=== PATIENT | female | born 1945 | race Caucasian/White ===

== ENCOUNTER → 2017-11-28 08:05 | Outpatient (CLI) | payer MEDICARE, OTHER, SELFPAY ==
--- NOTE | 2017-11-28 | DI.MG.S_ITS ---
BILATERAL DIGITAL SCREENING MAMMOGRAM 3D/2D WITH CAD POST LUMPECTOMY: 11/28/2017 CLINICAL: Routine screening. Personal history of breast cancer. Comparison is made to exams dated: [facility], 12/19/2015 mammogram [facility], and 12/12/2015 [facility]. The tissue of both breasts is predominantly fatty. Current study was also evaluated with a Computer Aided Detection (CAD) system. There are post operative findings in the right breast. No significant masses, calcifications, or other findings are seen in either breast. There has been no significant interval change. IMPRESSION: NEGATIVE There is no mammographic evidence of malignancy. A 1 year screening mammogram is recommended. This exam was interpreted at Station ID: [id number]. NOTE: For mammograms, a report in lay terms will be sent to the patient. Approximately 15% of breast malignancies will not be visualized mammographically. In the management of a palpable breast mass, a negative mammogram must not discourage biopsy of a clinically suspicious lesion. Electronically Signed By: Gian worley/corey:11/28/2017 16:55:30 copy to: Marshall Davila letter sent: Normal Exam ACR BI-RADS Category 1: Negative 3341F
== END ==
PROVIDERS: Family Provider Family Medicine; PCP Family Medicine; Visit Provider Family Medicine
DX: Z12.31 Encounter for screening mammogram for malignant neoplasm of breast (principal); Z85.3 Personal history of malignant neoplasm of breast
CPT/HCPCS: 77063; 77067

== ENCOUNTER → 2017-12-06 08:04 | Outpatient (CLI) | payer MEDICARE, OTHER, SELFPAY ==
[2017-12-06 09:09] LABS: Alanine Aminotransferase 26 IU/L (9-52); Albumin 3.5 g/dL (3.5-5.0); Albumin Globulin Ratio 1.2 (1.0-2.8); Alkaline Phosphatase 55 U/L (38-126); Aspartate Aminotransferase 16 IU/L (14-36); BUN Creatinine Ratio 23.3 (6-22); Bilirubin Total 0.7 mg/dL (0.2-1.3); Blood Urea Nitrogen 14 mg/dL (7-17); Calcium 8.5 mg/dL (8.4-10.2); Carbon Dioxide 23 mmol/L (22-32); Chloride 106 mmol/L (98-107); Cholesterol 175 mg/dL (140-199); Estimated Glomerular Filt Rate > 60.0 mL/min (>60); Glucose 118 mg/dL (80-110); HDL Cholesterol 54 mg/dL (40-60); HEMOLYSIS < 15 (0-50); LDL Cholesterol Calculated 93 mg/dL (<100); Sodium 140 mmol/L (137-145); Total Protein 6.5 g/dL (6.3-8.2); Triglycerides 138 mg/dL (35-150)
== END ==
PROVIDERS: PCP Family Medicine; Visit Provider Internal Medicine Cardiovascular Disease
DX: I25.10 Atherosclerotic heart disease of native coronary artery without angina pectoris (principal)
CPT/HCPCS: 36415; 80053; 80061

== ENCOUNTER → 2017-12-15 10:27 | Outpatient (CLI) | payer MEDICARE, OTHER, SELFPAY ==
[2017-12-15 10:50] LABS: Add Manual Diff / Slide Review NO; Basophils Percent Auto 0.7 % (0-2); Eosinophils Percent Auto 3.3 % (2-4); Hematocrit 44.2 % (36-46); Hemoglobin 15.2 g/dL (12.0-16.0); Mean Corpuscular HGB Conc 34.5 % (30-36); Mean Corpuscular Hemoglobin 33.3 PG (26-34); Mean Corpuscular Volume 96.6 fL (80-100); Monocytes Percent Auto 10.8 % (3-14); Neutrophils Absolute Auto 3700 /uL (3000-5900); Neutrophils Percent Auto 59.2 % (50-75); Platelet Count 153 X10^3/uL (150-400); Red Blood Cell Count 4.57 X10^6/uL (4.0-5.2); Red Cell Distribution Width 12.1 % (11.6-14.8); White Blood Cell Count 6.3 X10^3/uL (4.5-11.0)
[2017-12-15 11:01] LABS: Alanine Aminotransferase 30 IU/L (9-52); Albumin 3.8 g/dL (3.5-5.0); Albumin Globulin Ratio 1.2 (1.0-2.8); Alkaline Phosphatase 61 U/L (38-126); Aspartate Aminotransferase 21 IU/L (14-36); Bilirubin Total 0.6 mg/dL (0.2-1.3); Blood Urea Nitrogen 15 mg/dL (7-17); Calcium 8.9 mg/dL (8.4-10.2); Carbon Dioxide 26 mmol/L (22-32); Chloride 106 mmol/L (98-107); Estimated Glomerular Filt Rate > 60.0 mL/min (>60); Globulin 3.2 g/dL (1.7-4.1); Glucose 97 mg/dL (80-110); HEMOLYSIS < 15 (0-50); Potassium 4.6 mmol/L (3.4-5.1); Sodium 144 mmol/L (137-145)
== END ==
PROVIDERS: Family Provider Family Medicine; PCP Family Medicine; Visit Provider Nurse Practitioner Gerontology
DX: Z85.3 Personal history of malignant neoplasm of breast (principal)
CPT/HCPCS: 36415; 80053; 85025

== ENCOUNTER → 2018-06-13 07:50 | Outpatient (CLI) | payer MEDICARE, OTHER, SELFPAY ==
[2018-06-13 09:49] LABS: Cholesterol 164 mg/dL (140-199); HDL Cholesterol 66 mg/dL (40-60); LDL Cholesterol Calculated 73 mg/dL (<100); Triglycerides 126 mg/dL (35-150)
== END ==
PROVIDERS: Family Provider Family Medicine; PCP Family Medicine; Visit Provider Internal Medicine Cardiovascular Disease
DX: E78.01 Familial hypercholesterolemia (principal)
CPT/HCPCS: 36415; 80061

== ENCOUNTER → 2018-11-29 09:56 | Outpatient (CLI) | payer MEDICARE, OTHER, SELFPAY ==
--- NOTE | 2018-11-29 | DI.MG.S_ITS ---
BILATERAL DIGITAL SCREENING MAMMOGRAM 3D/2D WITH CAD POST LUMPECTOMY: 11/29/2018 CLINICAL: Routine screening. Personal history of right breast cancer. Comparison is made to exams dated: 11/28/2017 mammogram, 06/16/2016 mammogram, and 06/10/2015 [facility] - [facility]. There are scattered fibroglandular elements in both breasts. Current study was also evaluated with a Computer Aided Detection (CAD) system. There are a benign area of fat necrosis and post operative findings in the right breast. No significant masses, calcifications, or other findings are seen in either breast. There has been no significant interval change. IMPRESSION: There is no mammographic evidence of malignancy. A 1 year screening mammogram is recommended. This exam was interpreted at Station ID: [id number]. NOTE: For mammograms, a report in lay terms will be sent to the patient. Approximately 15% of breast malignancies will not be visualized mammographically. In the management of a palpable breast mass, a negative mammogram must not discourage biopsy of a clinically suspicious lesion. Electronically Signed By: Sandip way/corey:11/29/2018 11:37:15 copy to: Marshall Davila letter sent: Normal Exam ACR BI-RADS Category 2: Benign Finding(s) 3342F
== END ==
DX: Z12.31 Encounter for screening mammogram for malignant neoplasm of breast (principal); Z85.3 Personal history of malignant neoplasm of breast
CPT/HCPCS: 77063; 77067

== ENCOUNTER 2019-01-02 13:29 | Day surgery (SDC) | payer MEDICARE, OTHER, SELFPAY ==
--- NOTE | 2019-01-02 | PATH_ITS ---
[facility] Accession Number: [id number] . 01 Material submitted: . PART A: colon - POLYP AT CECUM PART B: colon - POLYP LEFT COLON . 02 Diagnosis: A. Cecum, Polyp: Tubular adenoma. . B. Left Colon, Polyp: Hyperplastic polyp. I/01/03/2019 . 02 Electronically signed: . Figueroa Ca MD, PhD, Pathologist NPI- [id number] . 01 Gross description: . Part A: POLYP AT CECUM: Received in formalin is 1 fragment(s) of carter, soft tissue measuring 1.0 x 0.7 x 0.2 cm which is entirely submitted and submitted entirely in 1 cassette(s) Part B: POLYP LEFT COLON: Received in formalin is 1 fragment(s) of carter, soft tissue measuring 0.1 x 0.1 x 0.1 cm which is entirely submitted and submitted entirely in 1 cassette(s) /[facility] /[facility] . 02 Pathologist provided ICD-10: D12.0, K63.5 . 02 CPT . 389119, 049384 Performed at: 01 [facility] [address], [place], [place] [id number] MD Sandip Mark MD Phone: [phone] Performed at: 02 [facility] [address] [place], [place] [id number] MD Lissa Jacobsen MD Phone: [phone]
[2019-01-02 13:55] VITALS: BMI 39.7
[2019-01-02 14:03] VITALS: BP 115/81; PULSE 100; RESP 20; TEMP 36.7; O2SAT 98
[2019-01-02] MEDS: SODIUM CHLORIDE 0.9% 1,000 ML 84 ML IV (14:05)
--- NOTE | 2019-01-02 14:09 | PM.HP.1 ---
History of Present Illness Date Patient Seen: 01/02/19 Time Patient Seen: 14:15 Chief complaint: [id number] SCREENING COLONOSCOPY Narrative: 73-year-old woman presents 6 years after last screening colonoscopy where a total of 6 polyps were removed. She was told re-presented 5 years afterwards. She reports no known family history of colon cancer however her sister was recently diagnosed with a colon mass that was biopsied and suspicious for cancer with pathology pending. She current we is having no GI symptoms and feels well. She tolerated her prep. Patient History Medical History (Updated 01/02/19 @ 14:16 by Dave Walton MD) Insomnia, persistent (Chronic) Obstructive sleep apnea (Chronic) Hypertension (Acute) Surgical History (Updated 01/02/19 @ 14:16 by Dave Walton MD) History of appendectomy (Acute) Social History marital status: details: in March 2018 household members: none lives independently: Yes caregiver/support person: No seatbelt use: always do you feel safe at home: Yes Smoking Status: Former smoker substance use type: does not use additional social history: Describes very supportive community; daughters, friends, fellow jainism members Family & Social History Social History: household members none lives independently Yes caregiver/support person No Tobacco & Substance use: Smoking Status Former smoker Meds Home Medications Medication Instructions Recorded Confirmed Type atenolol 25 mg PO QDAY #0 01/19/13 01/02/19 History melatonin 5 mg PO BEDTIME #0 01/19/13 01/02/19 History omega 0-npk-pcb-fish oil [Fish Oil] 800 mg PO BID #0 01/19/13 01/02/19 History Respironics Remstar CPAP #1 ea 12/07/18 12/07/18 History pravastatin 40 mg PO DAILY 12/19/18 01/02/19 History cholecalciferol (vitamin D3) 2,000 unit PO BID 01/02/19 01/02/19 History [Vitamin D3] Allergies Allergy/AdvReac Type Severity Reaction Status Date / Time adhesive tape [ADHESIVE TAPE] AdvReac Mild BLISTERS, Verified 01/02/19 13:50 BANDAIDS AND PAPER TAPE [place] Review of Systems Constitutional Constitutional: Denies fever(s) Eyes Eyes: Denies bulging eyes ENT Ears, Nose, Mouth, and Throat: No lip swelling Cardiovascular Cardiovascular: Denies generalize swelling Respiratory Respiratory: Denies stridor Gastrointestinal Gastrointestinal: Denies coffee ground emesis Musculoskeletal Musculoskeletal: Denies loss of height Integumentary/Breasts Skin/Breast: Denies wounds Neurologic Neurologic: Denies abnormal speech and Denies confusion Psychiatric Psychiatric: Denies confusion Endocrine Endocrine: Denies deepening of the voice Hematologic/Lymphatic Hematologic/Lymphatic: Denies lymphadenopathy Allergic/Immunologic Allergic/Immunologic: Denies lip swelling Exam Vital Signs (past 8 hours): - 01/02/19 14:03 Temperature 98.0 F Pulse Rate 100 H Respiratory Rate 20 Blood Pressure 115/81 Pulse Oximetry 98 Oxygen Delivery Method Room Air Const General: cooperative and healthy appearing Orientation: alert HENMS Head: normal to inspection Nose: nares normal Mouth: oral mucosae normal and lip normal Eyes Eyelids: eyelids normal Conjunctivae: conjunctivae normal Sclera: sclerae normal Neck Neck: supple and other (No thyromegally) Chest Chest: other (LCTAB , regular respiratory effort) Cardio Rhythm: regular rhythm Heart Sounds: S1 normal, S2 normal, no gallops, no murmurs and no rubs GI Other: Abdomen soft nontender nondistended Skin General: no rashes or lesions noted Neuro General: alert and awake Psych Appearance: grossly normal Affect: normal affect Assessment & Plan Assessment & Plan narrative: 73-year-old woman here for 2nd ever screening colonoscopy 6 years after last with history of cysts polypectomy x6 at that time. Likely with sibling with colon cancer but not definitive yet. Plan for screening colonoscopy today Risks of procedure including bleeding, , hypoxia, perforation, missed lesion all discussed All questions answered Patient ready to proceed
--- NOTE | 2019-01-02 14:18 | P.HP_ITS ---
History of Present Illness Date Patient Seen: 01/02/19 Time Patient Seen: 14:15 Chief complaint: [id number] SCREENING COLONOSCOPY Narrative: 73-year-old woman presents 6 years after last screening colonoscopy where a total of 6 polyps were removed. She was told re-presented 5 years afterwards. She reports no known family history of colon cancer however her sister was recently diagnosed with a colon mass that was biopsied and suspicious for cancer with pathology pending. She current we is having no GI symptoms and feels well. She tolerated her prep. Patient History Medical History (Updated 01/02/19 @ 14:16 by Dave Walton MD) Insomnia, persistent (Chronic) Obstructive sleep apnea (Chronic) Hypertension (Acute) Surgical History (Updated 01/02/19 @ 14:16 by Dave Walton MD) History of appendectomy (Acute) Social History marital status: details: in March 2018 household members: none lives independently: Yes caregiver/support person: No seatbelt use: always do you feel safe at home: Yes Smoking Status: Former smoker substance use type: does not use additional social history: Describes very supportive community; daughters, friends, fellow sikh members Family & Social History Social History: household members none lives independently Yes caregiver/support person No Tobacco & Substance use: Smoking Status Former smoker Meds Home Medications Medication Instructions Recorded Confirmed Type atenolol 25 mg PO QDAY #0 01/19/13 01/02/19 History melatonin 5 mg PO BEDTIME #0 01/19/13 01/02/19 History omega 7-wpk-cwj-fish oil [Fish Oil] 800 mg PO BID #0 01/19/13 01/02/19 History Respironics Remstar CPAP #1 ea 12/07/18 12/07/18 History pravastatin 40 mg PO DAILY 12/19/18 01/02/19 History cholecalciferol (vitamin D3) 2,000 unit PO BID 01/02/19 01/02/19 History [Vitamin D3] Allergies Allergy/AdvReac Type Severity Reaction Status Date / Time adhesive tape [ADHESIVE TAPE] AdvReac Mild BLISTERS, Verified 01/02/19 13:50 BANDAIDS AND PAPER TAPE OK Review of Systems Constitutional Constitutional: Denies fever(s) Eyes Eyes: Denies bulging eyes ENT Ears, Nose, Mouth, and Throat: No lip swelling Cardiovascular Cardiovascular: Denies generalize swelling Respiratory Respiratory: Denies stridor Gastrointestinal Gastrointestinal: Denies coffee ground emesis Musculoskeletal Musculoskeletal: Denies loss of height Integumentary/Breasts Skin/Breast: Denies wounds Neurologic Neurologic: Denies abnormal speech and Denies confusion Psychiatric Psychiatric: Denies confusion Endocrine Endocrine: Denies deepening of the voice Hematologic/Lymphatic Hematologic/Lymphatic: Denies lymphadenopathy Allergic/Immunologic Allergic/Immunologic: Denies lip swelling Exam Vital Signs (past 8 hours): - 01/02/19 14:03 Temperature 98.0 F Pulse Rate 100 H Respiratory Rate 20 Blood Pressure 115/81 Pulse Oximetry 98 Oxygen Delivery Method Room Air Const General: cooperative and healthy appearing Orientation: alert HENID Head: normal to inspection Nose: nares normal Mouth: oral mucosae normal and lip normal Eyes Eyelids: eyelids normal Conjunctivae: conjunctivae normal Sclera: sclerae normal Neck Neck: supple and other (No thyromegally) Chest Chest: other (LCTAB , regular respiratory effort) Cardio Rhythm: regular rhythm Heart Sounds: S1 normal, S2 normal, no gallops, no murmurs and no rubs GI Other: Abdomen soft nontender nondistended Skin General: no rashes or lesions noted Neuro General: alert and awake Psych Appearance: grossly normal Affect: normal affect Assessment & Plan Assessment & Plan narrative: 73-year-old woman here for 2nd ever screening colonoscopy 6 years after last with history of cysts polypectomy x6 at that time. Likely with sibling with colon cancer but not definitive yet. Plan for screening colonoscopy today Risks of procedure including bleeding, , hypoxia, perforation, missed lesion all discussed All questions answered Patient ready to proceed
[2019-01-02] MEDS: MIDAZOLAM 5 MG/5 ML VIAL IV (14:35)
[2019-01-02] MEDS: fentaNYL 250 MCG/5 ML INJ IV (14:36)
--- NOTE | 2019-01-02 14:45 | SUR.OPER ---
NO CAUTERY USED
[2019-01-02] MEDS: GLUCAGON,HUMAN RECOMBINANT 1 MG/ML VIAL IV (14:48)
--- NOTE | 2019-01-02 15:08 | PM.OP.ENDO ---
Operative Date/Time/Diagnoses Date of procedure: 01/02/19 Time of procedure: 15:08 Pre-op diagnosis: Colorectal cancer screening Post-op diagnosis: same Procedure & Clinicians Study performed: Screening colonoscopy-complete Cecal polypectomy -cold snare Left colon polypectomy -cold biopsy forceps Same procedure as scheduled: Yes Indications: 73-year-old woman with history of colon polyps presents 6 years after most recent colonoscopy were 6 polyps were removed Surgeon: Dave Walton Procedure Notes SCOAP/Timeout: completed Procedure in detail: 73-year-old woman taken to the endoscopy suite, time-out was completed. She was sedated over the entire course of her procedure with 80 mg of midazolam and 150 micro g of fentanyl. A digital rectal exam was performed without masses or polyps identified. 160 cm colonoscope was then introduced through the anus and advanced to the level of the cecum. There were quite numerous and tight folds within the colon which made advancement somewhat difficult. We were eventually however able to reach the cecum identified with a prominent ileocecal valve, she patient was status post appendectomy but the recess where the appendix had been prior was identified. Within the cecum just proximal to the ileocecal valve a small sessile polyp was identified. This was removed with cold snare and captured using a suction trap. Scope was then slowly advanced inspecting the wall of the colon. A small sessile polyp was identified in the left colon. This was removed via small biopsy forcep. Further withdrawing the scope there is extensive amount of sigmoid diverticulosis. No additional lesions were identified The scope was retroflexed in the distal rectum without concerning lesions. Scope withdrawal time: Twenty-five Sedation minutes: 44 Specimen(s): other (Cecal polyp, left colon polyp) Impression: Sigmoid diverticulosis -extensive Cecal polyp status post removal, left colon polyp status post removal Recommendations: Colonscopy in 5 years Plan for aftercare: PACU then Follow up: as needed Disposition: PACU
[2019-01-02 15:11] VITALS: BP 130/78; PULSE 84; RESP 20; TEMP 36.1; O2SAT 98
[2019-01-02 15:15] VITALS: BP 135/81; PULSE 88; RESP 14; O2SAT 97
[2019-01-02 15:21] VITALS: BP 131/84; PULSE 86; RESP 16; TEMP 36.4; O2SAT 97
[2019-01-02 15:40] VITALS: BP 147/85; PULSE 74; RESP 16; O2SAT 94
== END 2019-01-02 13:50 | disposition home or self-care (01) ==
LOC: ENDO 13:33
PROVIDERS: Visit Provider Surgery
PROC: 0DJD8ZZ Inspection of Lower Intestinal Tract, Via Natural or Artificial Opening Endoscopic (ICD-10-PCS; CPT 45378; principal; 2019-01-02 15:00)
DX: Z86.010 Personal history of colon polyps (principal); K57.30 Diverticulosis of large intestine without perforation or abscess without bleeding; G47.33 Obstructive sleep apnea (adult) (pediatric); I10 Essential (primary) hypertension; D12.0 Benign neoplasm of cecum; K63.5 Polyp of colon
CPT/HCPCS: 45380; 88305; 99152; 99153; J1610; J2250; J3010

== ENCOUNTER → 2019-02-23 09:18 | Outpatient (CLI) | payer MEDICARE, OTHER, SELFPAY ==
[2019-02-23 10:08] LABS: Cholesterol 181 mg/dL (140-199); HDL Cholesterol 68 mg/dL (40-60); LDL Cholesterol Calculated 82 mg/dL (<100); Triglycerides 157 mg/dL (35-150)
== END ==
PROVIDERS: Visit Provider Internal Medicine Cardiovascular Disease
DX: E78.01 Familial hypercholesterolemia (principal)
CPT/HCPCS: 36415; 80061

== ENCOUNTER → 2019-07-25 08:48 | Outpatient (CLI) | payer MEDICARE, OTHER, SELFPAY ==
[2019-07-25 10:42] LABS: Cholesterol 239 mg/dL (140-199); HDL Cholesterol 61 mg/dL (40-60); LDL Cholesterol Calculated 147 mg/dL (<100); Triglycerides 154 mg/dL (35-150)
== END ==
PROVIDERS: PCP Naturopath; Visit Provider Hospitalist
DX: I25.10 Atherosclerotic heart disease of native coronary artery without angina pectoris (principal); E78.01 Familial hypercholesterolemia
CPT/HCPCS: 36415; 80061

== ENCOUNTER → 2020-01-08 10:22 | Outpatient (CLI) | payer MEDICARE, OTHER, SELFPAY ==
--- NOTE | 2020-01-08 | DI.MG.S_ITS ---
BILATERAL DIGITAL SCREENING MAMMOGRAM 3D/2D WITH CAD POST LUMPECTOMY: 01/08/2020 CLINICAL: Routine screening. Breast cancer. Comparison is made to exams dated: 11/29/2018 mammogram, 11/28/2017 mammogram, and 06/16/2016 mammogram - [facility]. There are scattered fibroglandular elements in both breasts. Current study was also evaluated with a Computer Aided Detection (CAD) system. There is a benign area of fat necrosis in the right breast. There also are benign calcifications in both breasts. Additionally, there are benign post operative findings in the right breast. No significant masses, calcifications, or other findings are seen in either breast. There has been no significant interval change. IMPRESSION: There is no mammographic evidence of malignancy. A 1 year screening mammogram is recommended. This exam was interpreted at Station ID: [id number]. NOTE: For mammograms, a report in lay terms will be sent to the patient. Approximately 15% of breast malignancies will not be visualized mammographically. In the management of a palpable breast mass, a negative mammogram must not discourage biopsy of a clinically suspicious lesion. Electronically Signed By: Geoff devries/corey:01/08/2020 11:57:29 copy to: Gwen Walker letter sent: Normal Exam ACR BI-RADS Category 2: Benign Finding(s) 3342F
== END ==
PROVIDERS: PCP Naturopath; Referring Provider Internal Medicine Hematology & Oncology; Visit Provider Internal Medicine Hematology & Oncology
DX: Z12.31 Encounter for screening mammogram for malignant neoplasm of breast (principal); Z85.3 Personal history of malignant neoplasm of breast
CPT/HCPCS: 77063; 77067

== ENCOUNTER → 2020-10-07 11:13 | Outpatient (CLI) | payer MEDICARE, OTHER, SELFPAY ==
--- NOTE | 2020-10-07 | DI.US.S_ITS ---
PROCEDURE: US PERIPH VENOUS LOW EXTREM LT INDICATIONS: LEFT LOWER LEG PAIN TECHNIQUE: Real-time imaging, as well as color and pulse Doppler interrogation, were performed of the lower extremity deep veins from the inguinal ligament to the popliteal fossa. COMPARISON: None. (Prior relevant examinations are not available for review from the archive at the time of this dictation.) FINDINGS: The common femoral, femoral and popliteal veins are normally compressible, and free of intraluminal thrombus. Color and pulse Doppler demonstrate normal phasic intraluminal flow. There is normal augmentation response to distal compression maneuver. IMPRESSION: Negative for deep venous thrombosis. Dictated by: Umang Mitchell M.D. on 10/07/2020 at 11:03 Approved by: Umang Mitchell M.D. on 10/07/2020 at 11:04
== END ==
PROVIDERS: PCP Physician Assistant; Referring Provider Physician Assistant; Visit Provider Physician Assistant
DX: M79.662 Pain in left lower leg (principal); R22.42 Localized swelling, mass and lump, left lower limb
CPT/HCPCS: 93971

== ENCOUNTER → 2021-01-07 09:23 | Outpatient (CLI) | payer MEDICARE, OTHER, SELFPAY ==
[2021-01-07 10:26] LABS: Add Manual Diff / Slide Review NO; Basophils Absolute Auto 0 /uL (0-100); Basophils Percent Auto 0.7 % (0-2); Eosinophils Absolute Auto 100 /uL (0-450); Eosinophils Percent Auto 2.9 % (2-4); Hematocrit 43.9 % (36-46); Hemoglobin 15.2 g/dL (12.0-16.0); Lymphocytes Absolute Auto 1400 /uL (1100-4500); Lymphocytes Percent Auto 28.5 % (25-40); Mean Corpuscular HGB Conc 34.7 % (30-36); Mean Corpuscular Hemoglobin 32.9 PG (26-34); Mean Corpuscular Volume 94.8 fL (80-100); Monocytes Absolute Auto 400 /uL (0-900); Monocytes Percent Auto 8.8 % (3-14); Neutrophils Absolute Auto 2900 /uL (1500-7000); Neutrophils Percent Auto 59.1 % (50-75); Platelet Count 182 X10^3/uL (150-400); Red Blood Cell Count 4.64 X10^6/uL (4.0-5.2); Red Cell Distribution Width 12.6 % (11.6-14.8)
[2021-01-07 10:37] LABS: Alanine Aminotransferase 15 IU/L (<35); Albumin 3.8 g/dL (3.5-5.0); Albumin Globulin Ratio 1.3 (1.0-2.8); Alkaline Phosphatase 60 U/L (38-126); Aspartate Aminotransferase 21 IU/L (14-36); BUN Creatinine Ratio 15.9 (6-22); Bilirubin Total 1.2 mg/dL (0.2-1.3); Blood Urea Nitrogen 11 mg/dL (7-17); Calcium 8.8 mg/dL (8.4-10.2); Carbon Dioxide 27 mmol/L (22-32); Chloride 106 mmol/L (98-107); Cholesterol 240 mg/dL (140-199); Estimated Glomerular Filt Rate > 60.0 mL/min (>60); Globulin 2.9 g/dL (1.7-4.1); Glucose 116 mg/dL (80-110); HDL Cholesterol 54 mg/dL (40-60); HEMOLYSIS 16 (0-50); LDL Cholesterol Calculated 149 mg/dL (<100); Potassium 4.3 mmol/L (3.4-5.1); Sodium 139 mmol/L (137-145); Total Protein 6.7 g/dL (6.3-8.2); Triglycerides 183 mg/dL (35-150)
== END ==
PROVIDERS: PCP Physician Assistant; Referring Provider Physician Assistant; Visit Provider Physician Assistant
DX: E78.5 Hyperlipidemia, unspecified (principal); I10 Essential (primary) hypertension
CPT/HCPCS: 36415; 80053; 80061; 85025

== ENCOUNTER → 2021-01-09 10:10 | Outpatient (CLI) | payer MEDICARE, OTHER, SELFPAY ==
--- NOTE | 2021-01-09 10:11 | DI.MG.S_ITS ---
BILATERAL DIGITAL SCREENING MAMMOGRAM 3D/2D WITH CAD: 01/09/2021 CLINICAL: Routine screening. Personal history of right breast cancer. Comparison is made to exams dated: 01/08/2020 mammogram, 11/29/2018 mammogram, 11/28/2017 mammogram, and 06/16/2016 mammogram - [facility]. There are scattered fibroglandular elements in both breasts. Current study was also evaluated with a Computer Aided Detection (CAD) system. There is a benign area of fat necrosis in the right breast. There also are benign calcifications in the right breast. Additionally, there are benign vascular calcifications in both breasts. Additionally, there also are benign post operative findings in the right breast. No significant masses, calcifications, or other findings are seen in either breast. There has been no significant interval change. IMPRESSION: BENIGN There is no mammographic evidence of malignancy. A 1 year screening mammogram is recommended. This exam was interpreted at Station ID: [id number]. NOTE: For mammograms, a report in lay terms will be sent to the patient. Approximately 15% of breast malignancies will not be visualized mammographically. In the management of a palpable breast mass, a negative mammogram must not discourage biopsy of a clinically suspicious lesion. Electronically Signed By: Mickie olvera/corey:01/09/2021 10:38:22 copy to: Gwen Walker letter sent: Normal Exam ACR BI-RADS Category 2: Benign Finding(s) [id number]
== END ==
PROVIDERS: PCP Physician Assistant; Referring Provider Physician Assistant; Visit Provider Physician Assistant
DX: Z12.31 Encounter for screening mammogram for malignant neoplasm of breast (principal); Z85.3 Personal history of malignant neoplasm of breast
CPT/HCPCS: 77063; 77067

== ENCOUNTER 2021-02-03 09:00 | Outpatient (RCR) | payer MEDICARE, OTHER, SELFPAY ==
--- NOTE | 2020-11-18 18:59 | PT.OIE ---
Current Diagnoses Sciatica, left side (11/18/20) Muscle weakness (generalized) (11/18/20) Other abnormalities of gait and mobility (11/18/20) Past Medical History (Last Updated 06/08/20 @ 18:01 by VENANCIO Waters) Breast cancer, right breast Hypertension Insomnia, persistent Obesity (BMI 30-39.9) Obstructive sleep apnea Personal history of malignant neoplasm of breast Rhinitis Past Surgical History (Last Updated 01/02/19 @ 14:16 by Dave Walton MD) History of appendectomy Visit Care Team Role Provider Type Maryanne Baker PA-C Attending Provider Non-Staff Family Provider Primary Care Provider Referring Provider Specialty: Medical Address: [address] [place] [address], [facility] Email: Physical Therapy Initial Evaluation PT-OP-A Visit Information Start: 11/12/20 16:40 Freq: Status: Active Protocol: Document 11/18/20 09:04 LRN (Rec: 11/18/20 09:55 LRN [id number]) Out-Patient Physical Therapy Visit Information Visit Information Visit Type Initial Evaluation Visit Start Time 09:04 Visit Stop Time 09:49 Total Visit Minutes 45 Visit Number 1 Evaluation Information Evaluation Date 11/18/20 Precautions Precautions Surgical TAPE ALLERGY, Breast [place] [id number]; 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 PT-OP-B Current Condition Start: 11/12/20 16:40 Freq: Status: Active Protocol: Document 11/18/20 09:04 LRN (Rec: 11/18/20 09:55 LRN [id number]) Current Condition History of Current Condition Onset Date 08/2020 Current Complaints Ache pressure pain in L LB > lateral thigh to knee & groin> knee. Heavy leg. History of Current Condition Chiropractor has been working on her back and other areas to maintain her health 3x/week for various different issues and was getting ready to decrease to 1x/week when the Sciatica pain started. Was visiting daughter in [place] when pain exacerbated. She thinks because she was sitting on very soft couches and ambulating stairs. She was given Prednisone that was helpful and allowed her to return in a car back to [place]. Ended dosage of Prednisone 1 week after Easter (October 03). She has been using Tylenol 2000mg/day spread out during the day (AM/ PM), primarily important to help her sleep at night. She denies pain with sitting or sleeping, but notes a constant ache is present in sitting. She has pressure pain with walking and has fear of falling due to weakness of the R leg. Has had sciatic before and is same leg but the pain is different. Can bend over and touch the floor without difficulty. Lives with daughter who works at home. Prior Treatments and Tests Seeing Chiropractor (YOLI Nye) 3x/week now and had received acupuncture weekly. Denies x-rays or MRI. Future Testing and Treatments Planned MRI if not improved. Developmental History Developmental History Insidious onset. Treatment Goals Patient/Caregiver Goals Pt goal is to relieve pain and strengthen L leg to feel safer with walking. Prior Functional Status Baseline Function- ADL's Independent Baseline Function- Mobility Independent Baseline Function- Gait Ambulated without assist. Baseline Function- Other Sedentary Current Functional Impairments (Reported) Functional Limitations- ADL's Can't do conciliator ( dishes, make beds), can stand for max 15', not able to lift or carry laundry basket to laundry room, or hang clothes up to dry on clothes line ( pain reaching up). Laptop is heaviest thing she can lift. Functional Limitations- Mobility/Gait Walks with a SPC outside, held on R side, and must wear shoes to have less pain. Drives self but needs step stool to get in/out of car. Personal Factors Other Personal Factors That May Effect Seeing chiropractor 3x/weeks, Therapy/Recovery holding off on acupuncture. PT-OP-C Subjective Start: 11/12/20 16:40 Freq: Status: Active Protocol: Document 11/18/20 09:04 LRN (Rec: 11/18/20 09:55 LRN [id number]) Patient Questionnaires Oswestry Low Back Index Oswestry Score 46 Oswestry Impairment 40 to 59% Impaired (Score 40- 59) OP-PT Pain Assessment Pain Assessment Grid Paper Pain Assessment Grid Completed Yes Location L thigh Pain Location Details Posterior LLB to posterior & lateral knee, Groin to anterior knee Intensity 4 Scale Used Numeric (0 - 10) Description Aching,Pressure Frequency Constant Radiating Location L low back to knee Variations/Patterns Occasional pain if moving wrong way Pain Aggravating Factors Standing Pain Alleviating Factors Standing PT-OP-J Posture/Palpation/Skin Start: 11/12/20 16:40 Freq: Status: Active Protocol: Document 11/18/20 09:04 LRN (Rec: 11/18/20 09:55 LRN [id number]) Posture Evaluation Position Standing Head/C-Spine Posture Forward Head L-Spine Posture Shifted Right Shoulder Posture (L) Elevated Pelvis Posture (L) ASIS Posterior,(R) ASIS Inferior Hip Posture (L) Flexed,(R) Flexed,(L) Abducted Knee Posture (L) Excess Flexion Comments Posture Comments L Breast low, hips flexed 26 deg's, Shoes on due to increase pain in L LE without. PT-OP-K Range of Motion Start: 11/12/20 16:40 Freq: Status: Active Protocol: Document 11/18/20 09:04 LRN (Rec: 11/18/20 09:55 LRN [id number]) Lumbar Spine Range of Motion Lumbar Spine Active Degrees Flexion 90 Extension 0 Lateral Flexion Left 12 Lateral Flexion Right 10 Comments Flex 90/60 deg's hip flexion Ext 0/5 deg's hip extension Hip Goniometric Range of Motion Hip Right Passive Hip ROM WFL Yes Testing Position Supine Flexion w/Knee Flexed 109 Abduction 5 Internal Rotation 10 External Rotation 70 Comments Pain with movement is on L thigh Left Passive Hip ROM WFL No Testing Position Supine Flexion w/Knee Flexed 100 Abduction 2 Internal Rotation 10 External Rotation 35 PT-OP-M Strength Start: 11/12/20 16:40 Freq: Status: Active Protocol: Document 11/18/20 09:04 LRN (Rec: 11/18/20 09:55 LRN [id number]) Hip Strength Hip Manual Muscle Testing Right Flexion (L2) 3 Fair Abduction 2 Poor Adduction 2+ Poor+ Left Flexion (L2) 3 Fair Abduction 2- Poor- Adduction 2 Poor Knee Strength Knee Manual Muscle Testing Right Flexion (S2) 5 Normal Extension (L3) 5 Normal Left Flexion (S2) 4- Good- Extension (L3) 5 Normal PT-OP-Q Treatments Start: 11/12/20 16:40 Freq: Status: Active Protocol: Document 11/18/20 09:04 LRN (Rec: 11/18/20 09:55 LRN [id number]) Self-Care/Home Management Treatment Education Other Education Discussed results of evaluation, goals & plan of care. Pt agreeable. Activities Self-Care/Home Management Activities Recommended pt decrease chiropractic treatments to 2x/ week. I/S pt in sitting and standing active hip ER/IR ROM. I/S pt to sit properly in chair and not to lean right in chair. PT-OP-T Assessment and Plan Start: 11/12/20 16:40 Freq: Status: Active Protocol: Document 11/18/20 09:04 LRN (Rec: 11/18/20 09:55 LRN [id number]) Physical Therapy Assessment Rehab Potential Rehabilitation Potential Good Evaluation Complexity Number of Personal Factors/Comorbidities 1-2 Number of Body Systems Impaired 4 or More Clinical Presentation at Evaluation Evolving Impairments Impairments Activity Tolerance,Gait,Pain, Posture,ROM,Soft Tissue Mobility,Strength Goals Three Impairment Pt requires use of assist device (SPC) for pt to feel safe with stance/gait Short Term Goal (STG) Pt will be able to get in/out of her car without use of step stool. STG Duration 01/01/21 Assistant Maintenance Manager Goal (LTG) Pt will be able to ambulate safely without use of a SPC LTG Duration 02/16/21 Two Impairment L LE weakness limiting standing ability to 15' Short Term Goal (STG) Increase core & L hip/knee strength to improve standing ability so pt can do household chore of washing dishes and carry laundry basket to laundry room. STG Duration 01/01/21 Assistant Maintenance Manager Goal (LTG) Improve core & L LE strength with pt able to hang clothes up on clothes line without pain/weakness while reaching up. LTG Duration 02/16/21 One Impairment Pt lacks appropriate self care HEP Short Term Goal (STG) Pt will be educated in hip/low back ROM ex's to improve mobility. STG Duration 12/05/20 Skilled Nursing Goal (LTG) Pt will be educated in a self care HEP for self management of pain and LB/L hip stability . LTG Duration 02/16/21 Assessment Summary Assessment Pt presents with signs of degeneration of the L hip that was exacerbated by changes in her sitting posture and increased stair ambulation while visiting her daughter. The pt is very restricted in her hip mobility (to a lesser extent on the R side). She demonstrates no significant neural tightness of the LE's with standing trunk/hip flexion of 90 deg's without an increase in pain. She does have stiffness with trunk ext and visibly has a lateral shift to the right; therefore due to mechanical changes of the lumbar spine, she may have some involvement that is not apparent at this time. The pt also demonstrates a dysfunctional gait that is probably continuing to cause soft tissue irritation to the low back and hip area. Therapy may be prolonged due to different treatments the pt is currently undergoing ( hospice care transitions coordinator 3x/week and acupuncture 1x/week), although she is planning on discontinuing acupuncture for now and may reduce her hospice care transitions coordinator to 2x/week. The pt will benefit from physical therapy to achieve set goals. Physical Therapy Plan Frequency and Duration Frequency of Treatment 2x/Week Plan of Care Start Date 11/18/20 Plan of Care End Date 02/16/21 Therapeutic Interventions Therapeutic Interventions Gait Training,Home Exercise Program,Manual Therapy, Neuromuscular Re-education, Patient/Caregiver Education, Self-Care/Home Management,Soft Tissue Mobilization, Therapeutic Activities, Therapeutic Exercises Modalities Cold Pack/Ice Massage,Hot Packs Other Referrals/Consults Referrals/Consults Recommended Possible need for further testing (appropriate for the pt's health history) of L hip/ low back. Next Visit Focus/Plan Next Note Type Treatment Note Next Visit Plan L LB & LE rehab for mechanical dysfunction of L hip and lumbar spine. Review and issue HEP for active hip rotation (sitting/standing/ supine). Assess UE DTRS, change in standing posture/ pain without shoes, and soft tissue of L gluteals/hip rotators w/stretch added if tight. Assess hip rot strength and ankle ROM/ strength. ROM ex for L hip and ROM/STM for Iliopsoas. STM of LB to normalize posture of pelvis. Core stabilization, gait training, modalities limited to MH & ice due to CA history.
--- NOTE | 2020-11-18 19:00 | PT.OPPOC ---
Physical, Occupational & Speech Therapy At [facility] Current Diagnoses Sciatica, left side (11/18/20) Muscle weakness (generalized) (11/18/20) Other abnormalities of gait and mobility (11/18/20) Visit Care Team Role Provider Type Maryanne Baker PA-C Attending Provider Non-Staff Family Provider Primary Care Provider Referring Provider Specialty: Medical Address: [address] [place] [address], [id number] Email: Plan Of Care PT-OP-T Assessment and Plan Start: 11/12/20 16:40 Freq: Status: Active Protocol: Document 11/18/20 09:04 LRN (Rec: 11/18/20 09:55 LRN [id number]) Physical Therapy Assessment Rehab Potential Rehabilitation Potential Good Evaluation Complexity Number of Personal Factors/Comorbidities 1-2 Number of Body Systems Impaired 4 or More Clinical Presentation at Evaluation Evolving Impairments Impairments Activity Tolerance,Gait,Pain, Posture,ROM,Soft Tissue Mobility,Strength Goals Three Impairment Pt requires use of assist device (SPC) for pt to feel safe with stance/gait Short Term Goal (STG) Pt will be able to get in/out of her car without use of step stool. STG Duration 01/01/21 Candy Packer Goal (LTG) Pt will be able to ambulate safely without use of a SPC LTG Duration 02/16/21 Two Impairment L LE weakness limiting standing ability to 15' Short Term Goal (STG) Increase core & L hip/knee strength to improve standing ability so pt can do household chore of washing dishes and carry laundry basket to laundry room. STG Duration 01/01/21 Candy Packer Goal (LTG) Improve core & L LE strength with pt able to hang clothes up on clothes line without pain/weakness while reaching up. LTG Duration 02/16/21 One Impairment Pt lacks appropriate self care HEP Short Term Goal (STG) Pt will be educated in hip/low back ROM ex's to improve mobility. STG Duration 12/05/20 Fdc Goal (LTG) Pt will be educated in a self care HEP for self management of pain and LB/L hip stability . LTG Duration 02/16/21 Assessment Summary Assessment Pt presents with signs of degeneration of the L hip that was exacerbated by changes in her sitting posture and increased stair ambulation while visiting her daughter. The pt is very restricted in her hip mobility (to a lesser extent on the R side). She demonstrates no significant neural tightness of the LE's with standing trunk/hip flexion of 90 deg's without an increase in pain. She does have stiffness with trunk ext and visibly has a lateral shift to the right; therefore due to mechanical changes of the lumbar spine, she may have some involvement that is not apparent at this time. The pt also demonstrates a dysfunctional gait that is probably continuing to cause soft tissue irritation to the low back and hip area. Therapy may be prolonged due to different treatments the pt is currently undergoing ( health care technician 3x/week and acupuncture 1x/week), although she is planning on discontinuing acupuncture for now and may reduce her health care technician to 2x/week. The pt will benefit from physical therapy to achieve set goals. Physical Therapy Plan Frequency and Duration Frequency of Treatment 2x/Week Plan of Care Start Date 11/18/20 Plan of Care End Date 02/16/21 Therapeutic Interventions Therapeutic Interventions Gait Training,Home Exercise Program,Manual Therapy, Neuromuscular Re-education, Patient/Caregiver Education, Self-Care/Home Management,Soft Tissue Mobilization, Therapeutic Activities, Therapeutic Exercises Modalities Cold Pack/Ice Massage,Hot Packs Other Referrals/Consults Referrals/Consults Recommended Possible need for further testing (appropriate for the pt's health history) of L hip/ low back. Next Visit Focus/Plan Next Note Type Treatment Note Next Visit Plan L LB & LE rehab for mechanical dysfunction of L hip and lumbar spine. Review and issue HEP for active hip rotation (sitting/standing/ supine). Assess UE DTRS, change in standing posture/ pain without shoes, and soft tissue of L gluteals/hip rotators w/stretch added if tight. Assess hip rot strength and ankle ROM/ strength. ROM ex for L hip and ROM/STM for Iliopsoas. STM of LB to normalize posture of pelvis. Core stabilization, gait training, modalities limited to MH & ice due to CA history. Plan of Care Dates Plan of Care Start Date 11/18/20 Plan of Care End Date 02/16/21 Electronically Signed by: Lore Cota, PT 11/18/20 0360 Please Sign and Return: I have reviewed this Plan of Care and certify that the skilled therapy services above are required to meet the patient?s needs. Physician Signature Date Printed Name and Credentials Clinical Instructor Signature Printed Name and Credentials
--- NOTE | 2020-11-20 09:21 | PT.OTN ---
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 Recent bowel prolapse. PT-OP-B Current Condition Start: 11/12/20 16:40 Freq: Status: Active Protocol: Document 11/18/20 09:04 LRN (Rec: 11/18/20 09:55 LRN [id number]) Current Condition History of Current Condition Onset Date 08/2020 Current Complaints Ache pressure pain in L LB > lateral thigh to knee & groin> knee. Heavy leg. History of Current Condition Chiropractor has been working on her back and other areas to maintain her health 3x/week for various different issues and was getting ready to decrease to 1x/week when the Sciatica pain started. Was visiting daughter in [place] when pain exacerbated. She thinks because she was sitting on very soft couches and ambulating stairs. She was given Prednisone that was helpful and allowed her to return in a car back to [place]. Ended dosage of Prednisone 1 week after Easter (October 03). She has been using Tylenol 2000mg/day spread out during the day (AM/ PM), primarily important to help her sleep at night. She denies pain with sitting or sleeping, but notes a constant ache is present in sitting. She has pressure pain with walking and has fear of falling due to weakness of the R leg. Has had sciatic before and is same leg but the pain is different. Can bend over and touch the floor without difficulty. Lives with daughter who works at home. Prior Treatments and Tests Seeing Chiropractor (YOLI Nye) 3x/week now and had received acupuncture weekly. Denies x-rays or MRI. Future Testing and Treatments Planned MRI if not improved. Developmental History Developmental History Insidious onset. Treatment Goals Patient/Caregiver Goals Pt goal is to relieve pain and strengthen L leg to feel safer with walking. Prior Functional Status Baseline Function- ADL's Independent Baseline Function- Mobility Independent Baseline Function- Gait Ambulated without assist. 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 Laptop is heaviest thing she can lift. Functional Limitations- Mobility/Gait Walks with a SPC outside, held on R side, and must wear shoes to have less pain. Drives self but needs step stool to get in/out of car. Personal Factors Other Personal Factors That May Effect Seeing chiropractor 3x/weeks, Therapy/Recovery holding off on acupuncture. PT-OP-C Subjective Start: 11/12/20 16:40 Freq: Status: Active Protocol: Document 11/20/20 08:15 LRN (Rec: 11/20/20 09:20 LRN [id number]) OP-PT Subjective Patient Comments Patient Comments Stopped sitting on recliner and has been sitting on an ergonomically correct chair and doing ex's and feels the pain has moved up towards back . PT-OP-J Posture/Palpation/Skin Start: 11/12/20 16:40 Freq: Status: Active Protocol: Document 11/18/20 09:04 LRN (Rec: 11/18/20 09:55 LRN [id number]) Posture Evaluation Position Standing Head/C-Spine Posture Forward Head L-Spine Posture Shifted Right Shoulder Posture (L) Elevated Pelvis Posture (L) ASIS Posterior,(R) ASIS Inferior Hip Posture (L) Flexed,(R) Flexed,(L) Abducted Knee Posture (L) Excess Flexion Comments Posture Comments L Breast low, hips flexed 26 deg's, Shoes on due to increase pain in L LE without. PT-OP-K Range of Motion Start: 11/12/20 16:40 Freq: Status: Active Protocol: Document 11/20/20 08:15 LRN (Rec: 11/20/20 09:20 LRN [id number]) Hip Goniometric Range of Motion Hip Right Passive Hip ROM WFL No Testing Position Supine Flexion w/Knee Flexed 109 Internal Rotation 20 External Rotation 75 Left Passive Hip ROM WFL No Testing Position Supine Flexion w/Knee Flexed 109 Internal Rotation 20 External Rotation 40 PT-OP-M Strength Start: 11/12/20 16:40 Freq: Status: Active Protocol: Document 11/18/20 09:04 LRN (Rec: 11/18/20 09:55 LRN [id number]) Hip Strength Hip Manual Muscle Testing Right Flexion (L2) 3 Fair Abduction 2 Poor Adduction 2+ Poor+ Left Flexion (L2) 3 Fair Abduction 2- Poor- Adduction 2 Poor Knee Strength Knee Manual Muscle Testing Right Flexion (S2) 5 Normal Extension (L3) 5 Normal Left Flexion (S2) 4- Good- Extension (L3) 5 Normal PT-OP-Q Treatments Start: 11/12/20 16:40 Freq: Status: Active Protocol: Document 11/20/20 08:15 LRN (Rec: 11/20/20 09:20 LRN [id number]) Therapeutic Exercises Supine Exercises Iliopsoas stretch Supine Exercise Name Iliopsoas static stretch with pillow under knee Side left Reps/Minutes 3' to find best position, 3' on stretch during R hip stretching. Comments Extra time taken to determine tolerated stretch position Piriformis stretch Supine Exercise Name Piriformis stretch (L needing foot held higher than opposite bent knee) Reps/Minutes 10' Comments Extra time taken to determine tolerated stretch position Lateral Hip stretch Supine Exercise Name Lateral hip stretch Side bilateral Reps/Minutes 6' Comments Extra time taken to determine tolerated stretch position Hip IR Supine Exercise Name Stretch: AROM on MH Side bilateral Reps/Minutes 3' Hip ER Supine Exercise Name Stretch: AROM & PROM, on MH Side bilateral Reps/Minutes 7' Sitting Exercises Hip ER/IR Sitting Exercise Name AROM Side bilateral Reps/Minutes 3' Self-Care/Home Management Treatment Education Patient Education Home Exercise Program Other Education Pt educated in core/pelvic stabilization with anatomy explained. Discussed scheduling with recommendation of holding chiropractic treatments 1 week for effects of just therapy. Activities Self-Care/Home Management Activities Issued & reviewed HEP: of hip stretches (Piriformis, lateral hip and Ilipsoas positioning stretch). PT-OP-T Assessment and Plan Start: 11/12/20 16:40 Freq: Status: Active Protocol: Document 11/20/20 08:15 LRN (Rec: 11/20/20 09:20 LRN [id number]) Physical Therapy Assessment Goals Three Impairment Pt requires use of assist device (SPC) for pt to feel safe with stance/gait Short Term Goal (STG) Pt will be able to get in/out of her car without use of step stool. STG Duration 01/01/21 [facility] Goal (LTG) Pt will be able to ambulate safely without use of a SPC. (11/20/20: Pt able to take a few steps without cane and mild but visible increased sway to L side). LTG Duration 02/16/21 (11/20/20: Progressed) Two Impairment L LE weakness limiting standing ability to 15' Short Term Goal (STG) Increase core & L hip/knee strength to improve standing ability so pt can do household chore of washing dishes and carry laundry basket to laundry room. STG Duration 01/01/21 [facility] Goal (LTG) Improve core & L LE strength with pt able to hang clothes up on clothes line without pain/weakness while reaching up. LTG Duration 02/16/21 One Impairment Pt lacks appropriate self care HEP Short Term Goal (STG) Pt will be educated in hip/low back ROM ex's to improve mobility. (11/20/20: Issued HEP: Supine hip ER/IR and positional Ilipsoas stretch) STG Duration 12/05/20 (11/20/20: Progressed) Churn Driller Goal (LTG) Pt will be educated in a self care HEP for self management of pain and LB/L hip stability . (11/20/20: Issued HEP: Supine hip ER/IR and positional Ilipsoas stretch) LTG Duration 02/16/21 (11/20/20: Progressed) Progress Towards Goals Progress Comments Improved passive hip mobility in supine, L hip: of 10 deg's IR & 5 deg's ER. Pt demonstrated improved ability to take a few steps without cane confidently but with visible increased sway to L side. Assessment Summary Assessment Pt presents with symptoms of healing from possible bulging lumbar disc, with centralization of pain towards the back. She has signs of L hip degeneration that was exacerbated by changes in her sitting posture and increased stair ambulation while visiting her daughter. + response to pt's change in sitting posture and hip ER/IR AROM stretches. +response to manual lumbar/hip traction with decrease in hip pain after stretches. Physical Therapy Plan Frequency and Duration Frequency of Treatment 2x/Week Plan of Care Start Date 11/18/20 Plan of Care End Date 02/16/21 Next Visit Focus/Plan Next Note Type Treatment Note Next Visit Plan L LB & LE rehab for neural/ lumbar spine and mechanical dysfunction of L hip. Review HEP for stretches of hip rotation (supine) and add if needed HEP: hip rotation stretch sitting/standing. Body mechanics education for low back protection. ssess UE DTRS, change in standing posture/pain without shoes. Improve mobility of L Iliopsoas & LB for extension. STM of LB to normalize posture of pelvis. Soft tissue of hip muscles if needed. Assess hip rot strength and ankle ROM/strength. Core stabilization, gait training, modalities limited to MH & ice due to CA history.
--- NOTE | 2020-11-25 09:12 | PT.OTN ---
Current Diagnoses Sciatica, left side (11/25/20) Muscle weakness (generalized) (11/25/20) Other abnormalities of gait and mobility (11/25/20) Physical Therapy Treatment Note PT-OP-A Visit Information Start: 11/12/20 16:40 Freq: Status: Active Protocol: Document 11/25/20 08:21 SP (Rec: 11/25/20 09:22 SP [id number]) Out-Patient Physical Therapy Visit Information Visit Information Visit Type Treatment Note Visit Start Time 08:21 Visit Stop Time 09:12 Total Visit Minutes 51 Visit Number 3 Number of MANAGER OF QUALITY Visits 1 Evaluation Information Evaluation Date 11/18/20 Precautions Precautions Surgical TAPE ALLERGY[place] 2521-[address]; 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 Recent bowel prolapse. PT-OP-B Current Condition Start: 11/12/20 16:40 Freq: Status: Active Protocol: Document 11/18/20 09:04 LRN (Rec: 11/18/20 09:55 LRN [id number]) Current Condition History of Current Condition Onset Date 08/2020 Current Complaints Ache pressure pain in L LB > lateral thigh to knee & groin> knee. Heavy leg. History of Current Condition Chiropractor has been working on her back and other areas to maintain her health 3x/week for various different issues and was getting ready to decrease to 1x/week when the Sciatica pain started. Was visiting daughter in [place] when pain exacerbated. She thinks because she was sitting on very soft couches and ambulating stairs. She was given Prednisone that was helpful and allowed her to return in a car back to [place]. Ended dosage of Prednisone 1 week after [place] (October 03). She has been using Tylenol 2000mg/day spread out during the day (AM/ PM), primarily important to help her sleep at night. She denies pain with sitting or sleeping, but notes a constant ache is present in sitting. She has pressure pain with walking and has fear of falling due to weakness of the R leg. Has had sciatic before and is same leg but the pain is different. Can bend over and touch the floor without difficulty. Lives with daughter who works at home. Prior Treatments and Tests Seeing Chiropractor (YOLI Nye) 3x/week now and had received acupuncture weekly. Denies x-rays or MRI. Future Testing and Treatments Planned MRI if not improved. Developmental History Developmental History Insidious onset. Treatment Goals Patient/Caregiver Goals Pt goal is to relieve pain and strengthen L leg to feel safer with walking. Prior Functional Status Baseline Function- ADL's Independent Baseline Function- Mobility Independent Baseline Function- Gait Ambulated without assist. 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 Laptop is heaviest thing she can lift. Functional Limitations- Mobility/Gait Walks with a SPC outside, held on R side, and must wear shoes to have less pain. Drives self but needs step stool to get in/out of car. Personal Factors Other Personal Factors That May Effect Seeing chiropractor 3x/weeks, Therapy/Recovery holding off on acupuncture. PT-OP-C Subjective Start: 11/12/20 16:40 Freq: Status: Active Protocol: Document 11/25/20 08:21 SP (Rec: 11/25/20 09:22 SP [id number]) OP-PT Subjective Patient Comments Patient Comments Pt stated was pretty sore over the weekend and felt hurt little more after last tx. PT-OP-J Posture/Palpation/Skin Start: 11/12/20 16:40 Freq: Status: Active Protocol: Document 11/18/20 09:04 LRN (Rec: 11/18/20 09:55 LRN [id number]) Posture Evaluation Position Standing Head/C-Spine Posture Forward Head L-Spine Posture Shifted Right Shoulder Posture (L) Elevated Pelvis Posture (L) ASIS Posterior,(R) ASIS Inferior Hip Posture (L) Flexed,(R) Flexed,(L) Abducted Knee Posture (L) Excess Flexion Comments Posture Comments L Breast low, hips flexed 26 deg's, Shoes on due to increase pain in L LE without. PT-OP-K Range of Motion Start: 11/12/20 16:40 Freq: Status: Active Protocol: Document 11/20/20 08:15 LRN (Rec: 11/20/20 09:20 LRN [id number]) Hip Goniometric Range of Motion Hip Right Passive Hip ROM WFL No Testing Position Supine Flexion w/Knee Flexed 109 Internal Rotation 20 External Rotation 75 Left Passive Hip ROM WFL No Testing Position Supine Flexion w/Knee Flexed 109 Internal Rotation 20 External Rotation 40 PT-OP-M Strength Start: 11/12/20 16:40 Freq: Status: Active Protocol: Document 11/18/20 09:04 LRN (Rec: 11/18/20 09:55 LRN [id number]) Hip Strength Hip Manual Muscle Testing Right Flexion (L2) 3 Fair Abduction 2 Poor Adduction 2+ Poor+ Left Flexion (L2) 3 Fair Abduction 2- Poor- Adduction 2 Poor Knee Strength Knee Manual Muscle Testing Right Flexion (S2) 5 Normal Extension (L3) 5 Normal Left Flexion (S2) 4- Good- Extension (L3) 5 Normal PT-OP-Q Treatments Start: 11/12/20 16:40 Freq: Status: Active Protocol: Document 11/25/20 08:21 SP (Rec: 11/25/20 09:22 SP [id number]) Therapeutic Exercises Supine Exercises Iliopsoas stretch Supine Exercise Name Iliopsoas static stretch with pillow under lower leg/ knee Side left Reps/Minutes 20 x2 Comments good feedback response, better after manual STMs Piriformis stretch Supine Exercise Name Piriformis stretch (L needing foot held higher than opposite bent knee) Side bilateral Reps/Minutes 20 x2 Lateral Hip stretch Supine Exercise Name Lateral hip stretch Side bilateral Reps/Minutes 20 Hip IR Supine Exercise Name Stretch: AROM on MH Side bilateral Reps/Minutes 30 Hip ER Supine Exercise Name Stretch: AROM & PROM, on MH Side bilateral Reps/Minutes 30 Sitting Exercises adductor stretch Sitting Exercise Name side lunge (modified standing doing with daughter) Side bilateral Equipment Used seated on chair Reps/Minutes 30 x2 Comments good response compared to standing-to challenging. theracane self STMs Sitting Exercise Name quad, hs, calfs- added to HEP Side bilateral Reps/Minutes 2 min total Comments good feedback response feels muscles relax more Hip ER/IR Sitting Exercise Name AROM Side bilateral Reps/Minutes 3' Standing Exercises self STMs Standing Exercise Name racquetball roll paraspinals/ glut at wall Reps/Minutes 2 min total Comments good feedback response sore but no painful- feel it helps Manual Therapy Treatment Soft Tissue Mobilization STMs Body Location L glut min/ med/ pirformis/TFL & quad in supine Mobilization Type Strumming,Sustained Pressure Intensity/Depth Moderate Body Position Sidelying Comments manual and instruction on self STMs racquetball at wall and rolling stick to quad/HS/calf/ LB. Self-Care/Home Management Treatment Education Patient Education Home Exercise Program Other Education added self STMs to paraspinals , gluts, TFL using racquetball /tennis ball roll at wall standing and seated rolling stick to quad, HS, calf w/ good response. PT-OP-T Assessment and Plan Start: 11/12/20 16:40 Freq: Status: Active Protocol: Document 11/25/20 08:21 SP (Rec: 11/25/20 09:22 SP [id number]) Physical Therapy Assessment Goals Three Impairment Pt requires use of assist device (SPC) for pt to feel safe with stance/gait Short Term Goal (STG) Pt will be able to get in/out of her car without use of step stool. STG Duration 01/01/21 Industrial Equipment Wirer Goal (LTG) Pt will be able to ambulate safely without use of a SPC. (11/20/20: Pt able to take a few steps without cane and mild but visible increased sway to L side). LTG Duration 02/16/21 (11/20/20: Progressed) Two Impairment L LE weakness limiting standing ability to 15' Short Term Goal (STG) Increase core & L hip/knee strength to improve standing ability so pt can do household chore of washing dishes and carry laundry basket to laundry room. STG Duration 01/01/21 Industrial Equipment Wirer Goal (LTG) Improve core & L LE strength with pt able to hang clothes up on clothes line without pain/weakness while reaching up. LTG Duration 02/16/21 One Impairment Pt lacks appropriate self care HEP Short Term Goal (STG) Pt will be educated in hip/low back ROM ex's to improve mobility. (11/20/20: Issued HEP: Supine hip ER/IR and positional Ilipsoas stretch) STG Duration 12/05/20 (11/20/20: Progressed) Alf Goal (LTG) Pt will be educated in a self care HEP for self management of pain and LB/L hip stability . (11/20/20: Issued HEP: Supine hip ER/IR and positional Ilipsoas stretch) LTG Duration 02/16/21 (11/20/20: Progressed) Assessment Summary Assessment Pt responded well to manual and self STMs added to HEP for tightness and pain, noted increase hip ROM compared pre/ pos stretching HEP review of hip ext, straight and IR/ ER. Physical Therapy Plan Frequency and Duration Frequency of Treatment 2x/Week Plan of Care Start Date 11/18/20 Plan of Care End Date 02/16/21 Therapeutic Interventions Therapeutic Interventions Gait Training,Home Exercise Program,Manual Therapy, Neuromuscular Re-education, Patient/Caregiver Education, Self-Care/Home Management,Soft Tissue Mobilization, Therapeutic Activities, Therapeutic Exercises Modalities Cold Pack/Ice Massage,Hot Packs Other Referrals/Consults Referrals/Consults Recommended Possible need for further testing (appropriate for the pt's health history) of L hip/ low back. Next Visit Focus/Plan Next Note Type Treatment Note Next Visit Plan L LB & LE rehab for neural/ lumbar spine and mechanical dysfunction of L hip. Review HEP for stretches of hip rotation (supine) and add if needed HEP: hip rotation stretch sitting/standing. Body mechanics education for low back protection. Assess UE DTRS, change in standing posture/pain without shoes. Improve mobility of L Iliopsoas & LB for extension. STM of LB to normalize posture of pelvis. Soft tissue of hip muscles if needed. Assess hip rot strength and ankle ROM/strength. Core stabilization, gait training, modalities limited to MH & ice due to CA history.
--- NOTE | 2020-11-27 09:00 | PT.OTN ---
Current Diagnoses Sciatica, left side (11/27/20) Muscle weakness (generalized) (11/27/20) Other abnormalities of gait and mobility (11/27/20) Physical Therapy Treatment Note PT-OP-A Visit Information Start: 11/12/20 16:40 Freq: Status: Active Protocol: Document 11/27/20 08:19 SP (Rec: 11/27/20 12:00 SP [id number]) Out-Patient Physical Therapy Visit Information Visit Information Visit Type Treatment Note Visit Start Time 08:19 Visit Stop Time 09:00 Total Visit Minutes 41 Visit Number 4 Number of COUNTY HISTORIAN Visits 2 Evaluation Information Evaluation Date 11/18/20 PT-OP-B Current Condition Start: 11/12/20 16:40 Freq: Status: Active Protocol: Document 11/18/20 09:04 LRN (Rec: 11/18/20 09:55 LRN [id number]) Current Condition History of Current Condition Onset Date 08/2020 Current Complaints Ache pressure pain in L LB > lateral thigh to knee & groin> knee. Heavy leg. History of Current Condition Chiropractor has been working on her back and other areas to maintain her health 3x/week for various different issues and was getting ready to decrease to 1x/week when the Sciatica pain started. Was visiting daughter in [place] when pain exacerbated. She thinks because she was sitting on very soft couches and ambulating stairs. She was given Prednisone that was helpful and allowed her to return in a car back to [place]. Ended dosage of Prednisone 1 week after Easter (October 03). She has been using Tylenol 2000mg/day spread out during the day (AM/ PM), primarily important to help her sleep at night. She denies pain with sitting or sleeping, but notes a constant ache is present in sitting. She has pressure pain with walking and has fear of falling due to weakness of the R leg. Has had sciatic before and is same leg but the pain is different. Can bend over and touch the floor without difficulty. Lives with daughter who works at home. Prior Treatments and Tests Seeing Chiropractor (YOLI Nye) 3x/week now and had received acupuncture weekly. Denies x-rays or MRI. Future Testing and Treatments Planned MRI if not improved. Developmental History Developmental History Insidious onset. Treatment Goals Patient/Caregiver Goals Pt goal is to relieve pain and strengthen L leg to feel safer with walking. Prior Functional Status Baseline Function- ADL's Independent Baseline Function- Mobility Independent Baseline Function- Gait Ambulated without assist. 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 Laptop is heaviest thing she can lift. Functional Limitations- Mobility/Gait Walks with a SPC outside, held on R side, and must wear shoes to have less pain. Drives self but needs step stool to get in/out of car. Personal Factors Other Personal Factors That May Effect Seeing chiropractor 3x/weeks, Therapy/Recovery holding off on acupuncture. PT-OP-C Subjective Start: 11/12/20 16:40 Freq: Status: Active Protocol: Document 11/27/20 08:19 SP (Rec: 11/27/20 12:00 SP [id number]) OP-PT Subjective Patient Comments Patient Comments Pt states walking better and feeling better. I woke up Fri and no pain walking around. When I do walk longer distance does have that specific pain muscles tightening up but the ballroll at wall has helped alot althought uncomfortable in the moment will continue with benefits get from it. I am getting more times without pain. Patient Reported Progress Improving PT-OP-J Posture/Palpation/Skin Start: 11/12/20 16:40 Freq: Status: Active Protocol: Document 11/18/20 09:04 LRN (Rec: 11/18/20 09:55 LRN [id number]) Posture Evaluation Position Standing Head/C-Spine Posture Forward Head L-Spine Posture Shifted Right Shoulder Posture (L) Elevated Pelvis Posture (L) ASIS Posterior,(R) ASIS Inferior Hip Posture (L) Flexed,(R) Flexed,(L) Abducted Knee Posture (L) Excess Flexion Comments Posture Comments L Breast low, hips flexed 26 deg's, Shoes on due to increase pain in L LE without. PT-OP-K Range of Motion Start: 11/12/20 16:40 Freq: Status: Active Protocol: Document 11/20/20 08:15 LRN (Rec: 11/20/20 09:20 LRN [id number]) Hip Goniometric Range of Motion Hip Right Passive Hip ROM WFL No Testing Position Supine Flexion w/Knee Flexed 109 Internal Rotation 20 External Rotation 75 Left Passive Hip ROM WFL No Testing Position Supine Flexion w/Knee Flexed 109 Internal Rotation 20 External Rotation 40 PT-OP-M Strength Start: 11/12/20 16:40 Freq: Status: Active Protocol: Document 11/18/20 09:04 LRN (Rec: 11/18/20 09:55 LRN [id number]) Hip Strength Hip Manual Muscle Testing Right Flexion (L2) 3 Fair Abduction 2 Poor Adduction 2+ Poor+ Left Flexion (L2) 3 Fair Abduction 2- Poor- Adduction 2 Poor Knee Strength Knee Manual Muscle Testing Right Flexion (S2) 5 Normal Extension (L3) 5 Normal Left Flexion (S2) 4- Good- Extension (L3) 5 Normal PT-OP-Q Treatments Start: 11/12/20 16:40 Freq: Status: Active Protocol: Document 11/27/20 08:19 SP (Rec: 11/27/20 12:00 SP [id number]) Therapeutic Exercises Supine Exercises Iliopsoas stretch Supine Exercise Name Iliopsoas static stretch with pillow under lower leg/ knee Side left Reps/Minutes 20 x2 Comments good feedback response, better after manual STMs Piriformis stretch Supine Exercise Name Piriformis stretch (L initial just rest on opp knee before added stretch) Side bilateral Reps/Minutes 30 x2 Comments good feedback stretch Sidelying Exercises reverse clamshell Sidelying Exercise Name added to HEP Side bilateral Resistance AROM Equipment Used pillow between knees Reps/Minutes 2x10 Comments good feedback no pain- cued trunk still clamshell Sidelying Exercise Name added to HEP Side bilateral Resistance AROM Equipment Used pillow between knees Reps/Minutes 2x10 Comments good feedback no pain- cued trunk still Gait Training Gait Activity walking w/ out SPC Description level pelvis glut facilitation , scap retraction, tall posture Device Used 0 Surface firm, in mirror Distance/Duration 20 ft forward/backward x4 laps Treatment Focus level tall trunk alignment Comments improved glut facilitation with cuing for scap retraction , tall over stance LE in mirror Manual Therapy Treatment Soft Tissue Mobilization STMs Body Location L glut min/ med/ pirformis/TFL /quad/adductor Mobilization Type Strumming,Sustained Pressure Intensity/Depth Moderate Body Position Sidelying Comments manual and discussion review rolling stick/ racquetballwall with statment helping at home after STMs able walk better/ less tightness Self-Care/Home Management Treatment Education Patient Education Home Exercise Program Other Education Reviewed HEP including self ball roll at wall and rolling stick seated STMs, iniated sidelying clamshell/ reverseclamshell with good response pain, extra time spent set up and added pillow between knees for support for pain free. PT-OP-T Assessment and Plan Start: 11/12/20 16:40 Freq: Status: Active Protocol: Document 11/27/20 08:19 SP (Rec: 11/27/20 12:00 SP [id number]) Physical Therapy Assessment Goals Three Impairment Pt requires use of assist device (SPC) for pt to feel safe with stance/gait Short Term Goal (STG) Pt will be able to get in/out of her car without use of step stool. STG Duration 01/01/21 Snf Goal (LTG) Pt will be able to ambulate safely without use of a SPC. (11/20/20: Pt able to take a few steps without cane and mild but visible increased sway to L side). LTG Duration 02/16/21 (11/20/20: Progressed) Two Impairment L LE weakness limiting standing ability to 15' Short Term Goal (STG) Increase core & L hip/knee strength to improve standing ability so pt can do household chore of washing dishes and carry laundry basket to laundry room. STG Duration 01/01/21 Snf Goal (LTG) Improve core & L LE strength with pt able to hang clothes up on clothes line without pain/weakness while reaching up. LTG Duration 02/16/21 One Impairment Pt lacks appropriate self care HEP Short Term Goal (STG) Pt will be educated in hip/low back ROM ex's to improve mobility. (11/27/20: Issued HEP: Supine hip ER/IR and positional Ilipsoas stretch, clamshell/ reverse clamshell AROM) STG Duration 12/05/20 (11/27/20: Progressed) Crystalizer Goal (LTG) Pt will be educated in a self care HEP for self management of pain and LB/L hip stability . (11/27/20: Issued HEP: Supine hip ER/IR and positional Ilipsoas stretch, self STMs ball roll at wall and stick rolling) LTG Duration 02/16/21 (11/27/20: Progressed ) Assessment Summary Assessment Pt able to extend LLE over small towel roll w/ improve leg extension to stretch prox quad, TFL and iliopsoas today post manual, stretching and no adverse to initiated clam/ reverse clamshell today. Physical Therapy Plan Frequency and Duration Frequency of Treatment 2x/Week Plan of Care Start Date 11/18/20 Plan of Care End Date 02/16/21 Therapeutic Interventions Therapeutic Interventions Gait Training,Home Exercise Program,Manual Therapy, Neuromuscular Re-education, Patient/Caregiver Education, Self-Care/Home Management,Soft Tissue Mobilization, Therapeutic Activities, Therapeutic Exercises Modalities Cold Pack/Ice Massage,Hot Packs Next Visit Focus/Plan Next Note Type Treatment Note Next Visit Plan Next tx assess reponse to initiated ROM clamshell/ reverse clamshell to HEP, continue stretching HEP and gait. POC: L LB & LE rehab for neural/lumbar spine and mechanical dysfunction of L hip. Review HEP for stretches of hip rotation (supine) and add if needed HEP: Body mechanics education for low back protection. Assess UE DTRS, change in standing posture/pain without shoes. Improve mobility of L Iliopsoas & LB for extension. STM of LB to normalize posture of pelvis. Soft tissue of hip muscles if needed. Assess hip rot strength and ankle ROM/strength. Core stabilization, gait training, modalities limited to MH & ice due to [place] history.
--- NOTE | 2020-12-02 17:14 | PT.OTN ---
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 Recent bowel prolapse. PT-OP-B Current Condition Start: 11/12/20 16:40 Freq: Status: Active Protocol: Document 11/18/20 09:04 LRN (Rec: 11/18/20 09:55 LRN [id number]) Current Condition History of Current Condition Onset Date 08/2020 Current Complaints Ache pressure pain in L LB > lateral thigh to knee & groin> knee. Heavy leg. History of Current Condition Chiropractor has been working on her back and other areas to maintain her health 3x/week for various different issues and was getting ready to decrease to 1x/week when the Sciatica pain started. Was visiting daughter in [place] when pain exacerbated. She thinks because she was sitting on very soft couches and ambulating stairs. She was given Prednisone that was helpful and allowed her to return in a car back to [place]. Ended dosage of Prednisone 1 week after Easter (October 03). She has been using Tylenol 2000mg/day spread out during the day (AM/ PM), primarily important to help her sleep at night. She denies pain with sitting or sleeping, but notes a constant ache is present in sitting. She has pressure pain with walking and has fear of falling due to weakness of the R leg. Has had sciatic before and is same leg but the pain is different. Can bend over and touch the floor without difficulty. Lives with daughter who works at home. Prior Treatments and Tests Seeing Chiropractor (YOLI Nye) 3x/week now and had received acupuncture weekly. Denies x-rays or MRI. Future Testing and Treatments Planned MRI if not improved. Developmental History Developmental History Insidious onset. Treatment Goals Patient/Caregiver Goals Pt goal is to relieve pain and strengthen L leg to feel safer with walking. Prior Functional Status Baseline Function- ADL's Independent Baseline Function- Mobility Independent Baseline Function- Gait Ambulated without assist. 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 Laptop is heaviest thing she can lift. Functional Limitations- Mobility/Gait Walks with a SPC outside, held on R side, and must wear shoes to have less pain. Drives self but needs step stool to get in/out of car. Personal Factors Other Personal Factors That May Effect Seeing chiropractor 3x/weeks, Therapy/Recovery holding off on acupuncture. PT-OP-C Subjective Start: 11/12/20 16:40 Freq: Status: Active Protocol: Document 12/02/20 09:49 LRN (Rec: 12/02/20 10:44 LRN [id number]) OP-PT Subjective Patient Comments Patient Comments States she is variable in her pain. Treatments have been helpful (ball pressing), pain relief improved each time doing pressure. Pain is still present with movement. Sitting with legs up feels better until standing up. PT-OP-J Posture/Palpation/Skin Start: 11/12/20 16:40 Freq: Status: Active Protocol: Document 11/18/20 09:04 LRN (Rec: 11/18/20 09:55 LRN [id number]) Posture Evaluation Position Standing Head/C-Spine Posture Forward Head L-Spine Posture Shifted Right Shoulder Posture (L) Elevated Pelvis Posture (L) ASIS Posterior,(R) ASIS Inferior Hip Posture (L) Flexed,(R) Flexed,(L) Abducted Knee Posture (L) Excess Flexion Comments Posture Comments L Breast low, hips flexed 26 deg's, Shoes on due to increase pain in L LE without. PT-OP-K Range of Motion Start: 11/12/20 16:40 Freq: Status: Active Protocol: Document 11/20/20 08:15 LRN (Rec: 11/20/20 09:20 LRN [id number]) Hip Goniometric Range of Motion Hip Right Passive Hip ROM WFL No Testing Position Supine Flexion w/Knee Flexed 109 Internal Rotation 20 External Rotation 75 Left Passive Hip ROM WFL No Testing Position Supine Flexion w/Knee Flexed 109 Internal Rotation 20 External Rotation 40 PT-OP-M Strength Start: 11/12/20 16:40 Freq: Status: Active Protocol: Document 11/18/20 09:04 LRN (Rec: 11/18/20 09:55 LRN [id number]) Hip Strength Hip Manual Muscle Testing Right Flexion (L2) 3 Fair Abduction 2 Poor Adduction 2+ Poor+ Left Flexion (L2) 3 Fair Abduction 2- Poor- Adduction 2 Poor Knee Strength Knee Manual Muscle Testing Right Flexion (S2) 5 Normal Extension (L3) 5 Normal Left Flexion (S2) 4- Good- Extension (L3) 5 Normal PT-OP-Q Treatments Start: 11/12/20 16:40 Freq: Status: Active Protocol: Document 12/02/20 09:49 LRN (Rec: 12/02/20 10:44 LRN [id number]) Therapeutic Exercises Supine Exercises Chest Breathing Supine Exercise Name Chest Breathing Reps/Minutes 5' Comments Extensive cuing hand belly & chest TA tightening Supine Exercise Name TA tighten, TA lakhani, & cough Reps/Minutes 12' Comments Extensive training with self cuing hands on belly Sidelying Exercises reverse clamshell Sidelying Exercise Name added to HEP Side bilateral Resistance AROM Equipment Used pillow between knees Reps/Minutes 2x10 Comments no pain if mvmt limited-cued trunk still clamshell Sidelying Exercise Name added to HEP Side bilateral Resistance AROM Equipment Used pillow between knees Reps/Minutes 3x10 Comments good feedback no pain- cued trunk still Standing Exercises Pelvic shift Right Standing Exercise Name Wall shift Pelvis to right Reps/Minutes 2' Comments Cuing for pushing into arms at shoulder and for hips shifting right SB stretch Standing Exercise Name R SB stretch Side right Reps/Minutes 1' Manual Therapy Treatment Soft Tissue Mobilization STMs Body Location R Quad/Iliopsoas Mobilization Type Strumming,Trigger Point Release Intensity/Depth Moderate Body Position Sidelying Joint Mobilizations L SIJ Joint Correction of outflare innominate Body Position Supine Reps/Duration 5' Comments Extra Care taken with mvmt of L leg due to SIJ pain R SIJ Joint Correction of posteriorly rotated & inflare innominate Body Position Supine Reps/Duration 8' PT-OP-T Assessment and Plan Start: 11/12/20 16:40 Freq: Status: Active Protocol: Document 12/02/20 09:49 LRN (Rec: 12/02/20 10:44 LRN [id number]) Physical Therapy Assessment Goals Three Impairment Pt requires use of assist device (SPC) for pt to feel safe with stance/gait Short Term Goal (STG) Pt will be able to get in/out of her car without use of step stool. STG Duration 01/01/21 Fdc Goal (LTG) Pt will be able to ambulate safely without use of a SPC. (11/20/20: Pt able to take a few steps without cane and mild but visible increased sway to L side). LTG Duration 02/16/21 (11/20/20: Progressed) Two Impairment L LE weakness limiting standing ability to 15' Short Term Goal (STG) Increase core & L hip/knee strength to improve standing ability so pt can do household chore of washing dishes and carry laundry basket to laundry room. STG Duration 01/01/21 Trimming Press Operator Goal (LTG) Improve core & L LE strength with pt able to hang clothes up on clothes line without pain/weakness while reaching up. LTG Duration 02/16/21 One Impairment Pt lacks appropriate self care HEP Short Term Goal (STG) Pt will be educated in hip/low back ROM ex's to improve mobility. (11/27/20: Issued HEP: Supine hip ER/IR and positional Ilipsoas stretch, clamshell/ reverse clamshell AROM) STG Duration 12/05/20 (11/27/20: Progressed) Fdc Goal (LTG) Pt will be educated in a self care HEP for self management of pain and LB/L hip stability . (11/27/20: Issued HEP: Supine hip ER/IR and positional Ilipsoas stretch, self STMs ball roll at wall and stick rolling) LTG Duration 02/16/21 (11/27/20: Progressed ) Progress Towards Goals Progress Comments Improved awareness of TA tightening, and for breathing with TA tight. Assessment Summary Assessment + response to last treatment with pain relief while doing ball press against wall. Pain relief not lasting. Pt did not do ex's due to forgetting them. Today pt showed poor TA stabilization and was not able to hold TA during breathing. Pt not able to chest breath or tighten TA properly to start, but was able to identify chest movement and pulling in of TA at end of treatment. Correction of pelvis ilicits trunk asymmetry (shifted left) . Core stab needed. Physical Therapy Plan Frequency and Duration Frequency of Treatment 2x/Week Plan of Care Start Date 11/18/20 Plan of Care End Date 02/16/21 Next Visit Focus/Plan Next Note Type Treatment Note Next Visit Plan Assess progress towards TA tightening & TA holding. Continue stretching HEP and gait. POC: L LB & LE rehab for neural/lumbar spine and mechanical dysfunction of L hip. Review HEP for stretches of hip rotation (supine) and add if needed HEP: Body mechanics education for low back protection. Assess UE DTRS, change in standing posture/pain without shoes. Improve mobility of L Iliopsoas & LB for extension. STM of LB to normalize posture of pelvis. Soft tissue of hip and L Quad muscles. Assess hip rot strength and ankle ROM/strength. gait training, modalities limited to MH & ice due to [place] history.
--- NOTE | 2020-12-04 09:21 | PT.OTN ---
Current Diagnoses Sciatica, left side (12/04/20) Muscle weakness (generalized) (12/04/20) Other abnormalities of gait and mobility (12/04/20) Physical Therapy Treatment Note PT-OP-A Visit Information Start: 11/12/20 16:40 Freq: Status: Active Protocol: Document 12/04/20 08:15 LRN (Rec: 12/04/20 09:21 LRN [id number]) Out-Patient Physical Therapy Visit Information Visit Information Visit Type Treatment Note Visit Start Time 08:15 Visit Stop Time 09:01 Total Visit Minutes 46 Visit Number 6 Evaluation Information Evaluation Date 11/18/20 Precautions Precautions Surgical TAPE ALLERGY, Breast [place] [id number]; 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 Recent bowel prolapse. PT-OP-B Current Condition Start: 11/12/20 16:40 Freq: Status: Active Protocol: Document 11/18/20 09:04 LRN (Rec: 11/18/20 09:55 LRN [id number]) Current Condition History of Current Condition Onset Date 08/2020 Current Complaints Ache pressure pain in L LB > lateral thigh to knee & groin> knee. Heavy leg. History of Current Condition Chiropractor has been working on her back and other areas to maintain her health 3x/week for various different issues and was getting ready to decrease to 1x/week when the Sciatica pain started. Was visiting daughter in [place] when pain exacerbated. She thinks because she was sitting on very soft couches and ambulating stairs. She was given Prednisone that was helpful and allowed her to return in a car back to [place]. Ended dosage of Prednisone 1 week after Easter (October 03). She has been using Tylenol 2000mg/day spread out during the day (AM/ PM), primarily important to help her sleep at night. She denies pain with sitting or sleeping, but notes a constant ache is present in sitting. She has pressure pain with walking and has fear of falling due to weakness of the R leg. Has had sciatic before and is same leg but the pain is different. Can bend over and touch the floor without difficulty. Lives with daughter who works at home. Prior Treatments and Tests Seeing Chiropractor (YOLI Nye) 3x/week now and had received acupuncture weekly. Denies x-rays or MRI. Future Testing and Treatments Planned MRI if not improved. Developmental History Developmental History Insidious onset. Treatment Goals Patient/Caregiver Goals Pt goal is to relieve pain and strengthen L leg to feel safer with walking. Prior Functional Status Baseline Function- ADL's Independent Baseline Function- Mobility Independent Baseline Function- Gait Ambulated without assist. 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 Laptop is heaviest thing she can lift. Functional Limitations- Mobility/Gait Walks with a SPC outside, held on R side, and must wear shoes to have less pain. Drives self but needs step stool to get in/out of car. Personal Factors Other Personal Factors That May Effect Seeing chiropractor 3x/weeks, Therapy/Recovery holding off on acupuncture. PT-OP-C Subjective Start: 11/12/20 16:40 Freq: Status: Active Protocol: Document 12/04/20 08:15 LRN (Rec: 12/04/20 09:21 LRN [id number]) OP-PT Subjective Patient Comments Patient Comments Discomfort in L hip. Can lay legs out in bed. PT-OP-J Posture/Palpation/Skin Start: 11/12/20 16:40 Freq: Status: Active Protocol: Document 11/18/20 09:04 LRN (Rec: 11/18/20 09:55 LRN [id number]) Posture Evaluation Position Standing Head/C-Spine Posture Forward Head L-Spine Posture Shifted Right Shoulder Posture (L) Elevated Pelvis Posture (L) ASIS Posterior,(R) ASIS Inferior Hip Posture (L) Flexed,(R) Flexed,(L) Abducted Knee Posture (L) Excess Flexion Comments Posture Comments L Breast low, hips flexed 26 deg's, Shoes on due to increase pain in L LE without. PT-OP-K Range of Motion Start: 11/12/20 16:40 Freq: Status: Active Protocol: Document 11/20/20 08:15 LRN (Rec: 11/20/20 09:20 LRN [id number]) Hip Goniometric Range of Motion Hip Right Passive Hip ROM WFL No Testing Position Supine Flexion w/Knee Flexed 109 Internal Rotation 20 External Rotation 75 Left Passive Hip ROM WFL No Testing Position Supine Flexion w/Knee Flexed 109 Internal Rotation 20 External Rotation 40 PT-OP-M Strength Start: 11/12/20 16:40 Freq: Status: Active Protocol: Document 11/18/20 09:04 LRN (Rec: 11/18/20 09:55 LRN [id number]) Hip Strength Hip Manual Muscle Testing Right Flexion (L2) 3 Fair Abduction 2 Poor Adduction 2+ Poor+ Left Flexion (L2) 3 Fair Abduction 2- Poor- Adduction 2 Poor Knee Strength Knee Manual Muscle Testing Right Flexion (S2) 5 Normal Extension (L3) 5 Normal Left Flexion (S2) 4- Good- Extension (L3) 5 Normal PT-OP-Q Treatments Start: 11/12/20 16:40 Freq: Status: Active Protocol: Document 12/04/20 08:15 LRN (Rec: 12/04/20 09:21 LRN [id number]) Therapeutic Exercises Supine Exercises Chest Breathing Supine Exercise Name Chest Breathing Reps/Minutes 2' Comments Extensive cuing hand belly & chest TA tightening Supine Exercise Name TA tighten, TA lakhani, & cough Reps/Minutes 12' Comments Extensive training with self cuing hands on belly Iliopsoas stretch Supine Exercise Name Iliopsoas static stretch with pillow under lower leg/ knee Side left Reps/Minutes 20 x2 Comments good feedback response, better after manual STMs Piriformis stretch Supine Exercise Name Piriformis stretch (L initial just rest on opp knee before added stretch) Side bilateral Reps/Minutes 30 x2 Comments good feedback stretch Sidelying Exercises clamshell Sidelying Exercise Name Clamshell Side bilateral Resistance AROM Equipment Used pillow between knees Reps/Minutes 3x10 Comments good feedback no pain- cued trunk still Therapeutic Activity Therapeutic Activity Sit to Supine Name Sit to Supine: Coordinated with TA tightening Reps/Minutes 2' Comments Much v cuing needed. Sit>EOB sit Name Sit to Edge of Bed sit by protraction of hips symmetrically Reps/Minutes 2' Comments Pt not able to perform correctly, she scooted to EOB by single leg scooting. Manual Therapy Treatment Soft Tissue Mobilization STMs Body Location R Quad/Iliopsoas with mild pillow support at knees in supine Mobilization Type Strumming,Trigger Point Release Intensity/Depth Moderate Body Position Supine Comments Also done in Supine, ending with static supine stretch in neutral. ELIZABETH stretching in sidelye to Iliopsoas. Self-Care/Home Management Treatment Education Patient Education Home Exercise Program,Posture Other Education Educated pt in proper body body mechanics for getting in/ out of her car, getting groceries from car, posture in standing. Activities Self-Care/Home Management Activities Pt I/S to focus on hip stretches, TA tightening with lakhani & light cough, and coordinated with functional movements. Pt to work on supine lying tolerance in neutral (no Glut sets yet). PT-OP-T Assessment and Plan Start: 11/12/20 16:40 Freq: Status: Active Protocol: Document 12/04/20 08:15 LRN (Rec: 12/04/20 09:21 LRN [id number]) Physical Therapy Assessment Goals Three Impairment Pt requires use of assist device (SPC) for pt to feel safe with stance/gait Short Term Goal (STG) Pt will be able to get in/out of her car without use of step stool. STG Duration 01/01/21 Detention Goal (LTG) Pt will be able to ambulate safely without use of a SPC. (12/04/20: Pt ambs into therapy w/o cane and mild increased sway). LTG Duration 02/16/21 (12/04/20: 1st day of met goal) Two Impairment L LE weakness limiting standing ability to 15' Short Term Goal (STG) Increase core & L hip/knee strength to improve standing ability so pt can do household chore of washing dishes and carry laundry basket to laundry room. STG Duration 01/01/21 Lozenge Maker Goal (LTG) Improve core & L LE strength with pt able to hang clothes up on clothes line without pain/weakness while reaching up. LTG Duration 02/16/21 One Impairment Pt lacks appropriate self care HEP Short Term Goal (STG) Pt will be educated in hip/low back ROM ex's to improve mobility. (11/27/20: Issued HEP: Supine hip ER/IR and positional Ilipsoas stretch, clamshell/ reverse clamshell AROM) STG Duration 12/05/20 (11/27/20: Progressed) Lozenge Maker Goal (LTG) Pt will be educated in a self care HEP for self management of pain and LB/L hip stability . (11/27/20: Issued HEP: Supine hip ER/IR and positional Ilipsoas stretch, self STMs ball roll at wall and stick rolling) LTG Duration 02/16/21 (11/27/20: Progressed ) Progress Towards Goals Progress Comments Improving TA tightening ability and awareness. Improved posture in standing, no trunk lean. LTG #3 MET. Pt noted walking feeling good after therapy. Assessment Summary Assessment Pt posture much improved since last treatment. Symmetry in ASIS and shoulder positioining in standing. Slight inflare of R inflare /L outflare of innominate (supine). Pt needed review of stretches as she was doing incorrectly. She showed good knowledge after ex review. Pt improving in her ability to hold TA using light cough and lakhani technique. Pt limps when hurring to walk, but can walk without a limp when moving slowly. No trunk lean noted s /p therapy. Ache reproduced in LLB, L anterior thigh and groin during Iliopsoas stretching; therefore tightness persists. Physical Therapy Plan Frequency and Duration Frequency of Treatment 2x/Week Plan of Care Start Date 11/18/20 Plan of Care End Date 02/16/21 Next Visit Focus/Plan Next Note Type Treatment Note Next Visit Plan Monitor gait. Assess progress towards TA tightening & TA holding. Recheck knowledge of hip stretching. Add gentle LB stretch (extension & LE neural) & STM to L Pirformis. POC: L LB & LE rehab for neural/lumbar spine and mechanical dysfunction of L hip. Add: Body mechanics education for low back protection. Assess UE DTRS,change in standing posture/pain without shoes. Assess hip rot strength and ankle ROM/strength. Modalities limited to MH & ice due to CA history.
--- NOTE | 2020-12-04 12:49 | PT.OTN ---
Current Diagnoses Sciatica, left side (12/04/20) Muscle weakness (generalized) (12/04/20) Other abnormalities of gait and mobility (12/04/20) Physical Therapy Treatment Note PT-OP-A Visit Information Start: 11/12/20 16:40 Freq: Status: Active Protocol: Document 12/04/20 08:15 LRN (Rec: 12/04/20 09:21 LRN [id number]) Out-Patient Physical Therapy Visit Information Visit Information Visit Type Treatment Note Visit Start Time 08:15 Visit Stop Time 09:01 Total Visit Minutes 46 Visit Number 6 Evaluation Information Evaluation Date 11/18/20 Precautions Precautions Surgical TAPE ALLERGY, Breast [place] [id number]; 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 Recent bowel prolapse. PT-OP-B Current Condition Start: 11/12/20 16:40 Freq: Status: Active Protocol: Document 11/18/20 09:04 LRN (Rec: 11/18/20 09:55 LRN [id number]) Current Condition History of Current Condition Onset Date 08/2020 Current Complaints Ache pressure pain in L LB > lateral thigh to knee & groin> knee. Heavy leg. History of Current Condition Chiropractor has been working on her back and other areas to maintain her health 3x/week for various different issues and was getting ready to decrease to 1x/week when the Sciatica pain started. Was visiting daughter in [place] when pain exacerbated. She thinks because she was sitting on very soft couches and ambulating stairs. She was given Prednisone that was helpful and allowed her to return in a car back to [place]. Ended dosage of Prednisone 1 week after Easter (October 03). She has been using Tylenol 2000mg/day spread out during the day (AM/ PM), primarily important to help her sleep at night. She denies pain with sitting or sleeping, but notes a constant ache is present in sitting. She has pressure pain with walking and has fear of falling due to weakness of the R leg. Has had sciatic before and is same leg but the pain is different. Can bend over and touch the floor without difficulty. Lives with daughter who works at home. Prior Treatments and Tests Seeing Chiropractor (YOLI Nye) 3x/week now and had received acupuncture weekly. Denies x-rays or MRI. Future Testing and Treatments Planned MRI if not improved. Developmental History Developmental History Insidious onset. Treatment Goals Patient/Caregiver Goals Pt goal is to relieve pain and strengthen L leg to feel safer with walking. Prior Functional Status Baseline Function- ADL's Independent Baseline Function- Mobility Independent Baseline Function- Gait Ambulated without assist. 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 Laptop is heaviest thing she can lift. Functional Limitations- Mobility/Gait Walks with a SPC outside, held on R side, and must wear shoes to have less pain. Drives self but needs step stool to get in/out of car. Personal Factors Other Personal Factors That May Effect Seeing chiropractor 3x/weeks, Therapy/Recovery holding off on acupuncture. PT-OP-C Subjective Start: 11/12/20 16:40 Freq: Status: Active Protocol: Document 12/04/20 08:15 LRN (Rec: 12/04/20 09:21 LRN [id number]) OP-PT Subjective Patient Comments Patient Comments Discomfort in L hip. Can lay legs out in bed. PT-OP-J Posture/Palpation/Skin Start: 11/12/20 16:40 Freq: Status: Active Protocol: Document 11/18/20 09:04 LRN (Rec: 11/18/20 09:55 LRN [id number]) Posture Evaluation Position Standing Head/C-Spine Posture Forward Head L-Spine Posture Shifted Right Shoulder Posture (L) Elevated Pelvis Posture (L) ASIS Posterior,(R) ASIS Inferior Hip Posture (L) Flexed,(R) Flexed,(L) Abducted Knee Posture (L) Excess Flexion Comments Posture Comments L Breast low, hips flexed 26 deg's, Shoes on due to increase pain in L LE without. PT-OP-K Range of Motion Start: 11/12/20 16:40 Freq: Status: Active Protocol: Document 11/20/20 08:15 LRN (Rec: 11/20/20 09:20 LRN [id number]) Hip Goniometric Range of Motion Hip Right Passive Hip ROM WFL No Testing Position Supine Flexion w/Knee Flexed 109 Internal Rotation 20 External Rotation 75 Left Passive Hip ROM WFL No Testing Position Supine Flexion w/Knee Flexed 109 Internal Rotation 20 External Rotation 40 PT-OP-M Strength Start: 11/12/20 16:40 Freq: Status: Active Protocol: Document 11/18/20 09:04 LRN (Rec: 11/18/20 09:55 LRN [id number]) Hip Strength Hip Manual Muscle Testing Right Flexion (L2) 3 Fair Abduction 2 Poor Adduction 2+ Poor+ Left Flexion (L2) 3 Fair Abduction 2- Poor- Adduction 2 Poor Knee Strength Knee Manual Muscle Testing Right Flexion (S2) 5 Normal Extension (L3) 5 Normal Left Flexion (S2) 4- Good- Extension (L3) 5 Normal PT-OP-Q Treatments Start: 11/12/20 16:40 Freq: Status: Active Protocol: Document 12/04/20 08:15 LRN (Rec: 12/04/20 09:21 LRN [id number]) Therapeutic Exercises Supine Exercises Chest Breathing Supine Exercise Name Chest Breathing Reps/Minutes 2' Comments Extensive cuing hand belly & chest TA tightening Supine Exercise Name TA tighten, TA lakhani, & cough Reps/Minutes 12' Comments Extensive training with self cuing hands on belly Iliopsoas stretch Supine Exercise Name Iliopsoas static stretch with pillow under lower leg/ knee Side left Reps/Minutes 20 x2 Comments good feedback response, better after manual STMs Piriformis stretch Supine Exercise Name Piriformis stretch (L initial just rest on opp knee before added stretch) Side bilateral Reps/Minutes 30 x2 Comments good feedback stretch Sidelying Exercises clamshell Sidelying Exercise Name Clamshell Side bilateral Resistance AROM Equipment Used pillow between knees Reps/Minutes 3x10 Comments good feedback no pain- cued trunk still Therapeutic Activity Therapeutic Activity Sit to Supine Name Sit to Supine: Coordinated with TA tightening Reps/Minutes 2' Comments Much v cuing needed. Sit>EOB sit Name Sit to Edge of Bed sit by protraction of hips symmetrically Reps/Minutes 2' Comments Pt not able to perform correctly, she scooted to EOB by single leg scooting. Manual Therapy Treatment Soft Tissue Mobilization STMs Body Location R Quad/Iliopsoas with mild pillow support at knees in supine Mobilization Type Strumming,Trigger Point Release Intensity/Depth Moderate Body Position Supine Comments Also done in Supine, ending with static supine stretch in neutral. ELIZABETH stretching in sidelye to Iliopsoas. Self-Care/Home Management Treatment Education Patient Education Home Exercise Program,Posture Other Education Educated pt in proper body body mechanics for getting in/ out of her car, getting groceries from car, posture in standing. Activities Self-Care/Home Management Activities Pt I/S to focus on hip stretches, TA tightening with lakhani & light cough, and coordinated with functional movements. Pt to work on supine lying tolerance in neutral (no Glut sets yet). PT-OP-T Assessment and Plan Start: 11/12/20 16:40 Freq: Status: Active Protocol: Document 12/04/20 08:15 LRN (Rec: 12/04/20 09:21 LRN [id number]) Physical Therapy Assessment Goals Three Impairment Pt requires use of assist device (SPC) for pt to feel safe with stance/gait Short Term Goal (STG) Pt will be able to get in/out of her car without use of step stool. STG Duration 01/01/21 Prison Goal (LTG) Pt will be able to ambulate safely without use of a SPC. (12/04/20: Pt ambs into therapy w/o cane and mild increased sway). LTG Duration 02/16/21 (12/04/20: 1st day of met goal) Two Impairment L LE weakness limiting standing ability to 15' Short Term Goal (STG) Increase core & L hip/knee strength to improve standing ability so pt can do household chore of washing dishes and carry laundry basket to laundry room. STG Duration 01/01/21 Refrigerator Crater Goal (LTG) Improve core & L LE strength with pt able to hang clothes up on clothes line without pain/weakness while reaching up. LTG Duration 02/16/21 One Impairment Pt lacks appropriate self care HEP Short Term Goal (STG) Pt will be educated in hip/low back ROM ex's to improve mobility. (11/27/20: Issued HEP: Supine hip ER/IR and positional Ilipsoas stretch, clamshell/ reverse clamshell AROM) STG Duration 12/05/20 (11/27/20: Progressed) Refrigerator Crater Goal (LTG) Pt will be educated in a self care HEP for self management of pain and LB/L hip stability . (11/27/20: Issued HEP: Supine hip ER/IR and positional Ilipsoas stretch, self STMs ball roll at wall and stick rolling) LTG Duration 02/16/21 (11/27/20: Progressed ) Progress Towards Goals Progress Comments Improving TA tightening ability and awareness. Improved posture in standing, no trunk lean. LTG #3 MET. Pt noted walking feeling good after therapy. Assessment Summary Assessment Pt posture much improved since last treatment. Symmetry in ASIS and shoulder positioining in standing. Slight inflare of R inflare /L outflare of innominate (supine). Pt needed review of stretches as she was doing incorrectly. She showed good knowledge after ex review. Pt improving in her ability to hold TA using light cough and lakhani technique. Pt limps when hurring to walk, but can walk without a limp when moving slowly. No trunk lean noted s /p therapy. Ache reproduced in LLB, L anterior thigh and groin during Iliopsoas stretching; therefore tightness persists. Physical Therapy Plan Frequency and Duration Frequency of Treatment 2x/Week Plan of Care Start Date 11/18/20 Plan of Care End Date 02/16/21 Next Visit Focus/Plan Next Note Type Treatment Note Next Visit Plan Monitor gait. Assess progress towards TA tightening & TA holding. Recheck knowledge of hip stretching. Add gentle LB stretch (extension & LE neural) & STM to L Pirformis. POC: L LB & LE rehab for neural/lumbar spine and mechanical dysfunction of L hip. Add: Body mechanics education for low back protection. Assess UE DTRS,change in standing posture/pain without shoes. Assess hip rot strength and ankle ROM/strength. Modalities limited to MH & ice due to CA history.
--- NOTE | 2020-12-09 11:13 | PT.OTN ---
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 Recent bowel prolapse. PT-OP-B Current Condition Start: 11/12/20 16:40 Freq: Status: Active Protocol: Document 11/18/20 09:04 LRN (Rec: 11/18/20 09:55 LRN [id number]) Current Condition History of Current Condition Onset Date 08/2020 Current Complaints Ache pressure pain in L LB > lateral thigh to knee & groin> knee. Heavy leg. History of Current Condition Chiropractor has been working on her back and other areas to maintain her health 3x/week for various different issues and was getting ready to decrease to 1x/week when the Sciatica pain started. Was visiting daughter in [place] when pain exacerbated. She thinks because she was sitting on very soft couches and ambulating stairs. She was given Prednisone that was helpful and allowed her to return in a car back to [place]. Ended dosage of Prednisone 1 week after Easter (October 03). She has been using Tylenol 2000mg/day spread out during the day (AM/ PM), primarily important to help her sleep at night. She denies pain with sitting or sleeping, but notes a constant ache is present in sitting. She has pressure pain with walking and has fear of falling due to weakness of the R leg. Has had sciatic before and is same leg but the pain is different. Can bend over and touch the floor without difficulty. Lives with daughter who works at home. Prior Treatments and Tests Seeing Chiropractor (YOLI Nye) 3x/week now and had received acupuncture weekly. Denies x-rays or MRI. Future Testing and Treatments Planned MRI if not improved. Developmental History Developmental History Insidious onset. Treatment Goals Patient/Caregiver Goals Pt goal is to relieve pain and strengthen L leg to feel safer with walking. Prior Functional Status Baseline Function- ADL's Independent Baseline Function- Mobility Independent Baseline Function- Gait Ambulated without assist. 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 Laptop is heaviest thing she can lift. Functional Limitations- Mobility/Gait Walks with a SPC outside, held on R side, and must wear shoes to have less pain. Drives self but needs step stool to get in/out of car. Personal Factors Other Personal Factors That May Effect Seeing chiropractor 3x/weeks, Therapy/Recovery holding off on acupuncture. PT-OP-C Subjective Start: 11/12/20 16:40 Freq: Status: Active Protocol: Document 12/09/20 09:48 LRN (Rec: 12/09/20 10:34 LRN [id number]) OP-PT Subjective Patient Comments Patient Comments Able to lie flat in bed. Able to do hip ex's. Able to walk faster and without pain. Limps due to anticipation of pain. Can't stand for more than 15' (has been same for years). Used to walk 1/4 mile before sitting; hasn't tried walking yet. Having tension in lower back. PT-OP-G Mobility & Gait Start: 11/12/20 16:40 Freq: Status: Active Protocol: Document 12/09/20 09:48 LRN (Rec: 12/09/20 10:34 LRN [id number]) OP Gait Assessment Gait Gait Assistance Required: Independent Able to Maintain Weight Bearing Status Yes During Gait Assistive Devices Assistive Device None Comments Gait Comments Gait - with normal gait mechanics: 20'/12 secs = 1.66 ft/sec Gait - fast: 20/8 secs = 2.5 ft/sec. Preferred speed for 70's: 2. 79 ft/sec. PT-OP-J Posture/Palpation/Skin Start: 11/12/20 16:40 Freq: Status: Active Protocol: Document 11/18/20 09:04 LRN (Rec: 11/18/20 09:55 LRN [id number]) Posture Evaluation Position Standing Head/C-Spine Posture Forward Head L-Spine Posture Shifted Right Shoulder Posture (L) Elevated Pelvis Posture (L) ASIS Posterior,(R) ASIS Inferior Hip Posture (L) Flexed,(R) Flexed,(L) Abducted Knee Posture (L) Excess Flexion Comments Posture Comments L Breast low, hips flexed 26 deg's, Shoes on due to increase pain in L LE without. PT-OP-K Range of Motion Start: 11/12/20 16:40 Freq: Status: Active Protocol: Document 11/20/20 08:15 LRN (Rec: 11/20/20 09:20 LRN [id number]) Hip Goniometric Range of Motion Hip Right Passive Hip ROM WFL No Testing Position Supine Flexion w/Knee Flexed 109 Internal Rotation 20 External Rotation 75 Left Passive Hip ROM WFL No Testing Position Supine Flexion w/Knee Flexed 109 Internal Rotation 20 External Rotation 40 PT-OP-M Strength Start: 11/12/20 16:40 Freq: Status: Active Protocol: Document 11/18/20 09:04 LRN (Rec: 11/18/20 09:55 LRN [id number]) Hip Strength Hip Manual Muscle Testing Right Flexion (L2) 3 Fair Abduction 2 Poor Adduction 2+ Poor+ Left Flexion (L2) 3 Fair Abduction 2- Poor- Adduction 2 Poor Knee Strength Knee Manual Muscle Testing Right Flexion (S2) 5 Normal Extension (L3) 5 Normal Left Flexion (S2) 4- Good- Extension (L3) 5 Normal PT-OP-Q Treatments Start: 11/12/20 16:40 Freq: Status: Active Protocol: Document 12/09/20 09:48 LRN (Rec: 12/09/20 10:34 LRN [id number]) Therapeutic Exercises Supine Exercises Chest Breathing Supine Exercise Name Chest Breathing Reps/Minutes 4' Comments Extensive cuing hand belly & chest TA tightening Supine Exercise Name TA tighten, TA lakhani, & cough Reps/Minutes 8' Comments Extensive training with self cuing hands on belly Iliopsoas stretch Supine Exercise Name Iliopsoas static stretch with pillow under lower leg/ knee Side left Reps/Minutes Holding in supine position as tolerated Comments good feedback response, better after manual STMs Sidelying Exercises TA tightening Sidelying Exercise Name TA tightening using breathwork & cough/laugh Side bilateral Reps/Minutes 12' Comments Much phys cuing & training needed to start, crystal in L sidelie. Sitting Exercises LE Neural stretch Reps/Minutes 3' Manual Therapy Treatment Soft Tissue Mobilization STMs Body Location R Quad/Iliopsoas with mild pillow support at knees in supine Mobilization Type Strumming,Trigger Point Release Intensity/Depth Moderate Body Position Supine Comments Quad static supine stretch in neutral. ELIZABETH stretching in sidelye to Iliopsoas. Self-Care/Home Management Treatment Activities Self-Care/Home Management Activities Discussed plan of care and involvement with chiropractor, with possible reduction in adjustments. PT-OP-T Assessment and Plan Start: 11/12/20 16:40 Freq: Status: Active Protocol: Document 12/09/20 09:48 LRN (Rec: 12/09/20 10:34 LRN [id number]) Physical Therapy Assessment Goals Three Impairment Pt requires use of assist device (SPC) for pt to feel safe with stance/gait Short Term Goal (STG) Pt will be able to get in/out of her car without use of step stool. STG Duration 01/01/21 Senior Living Goal (LTG) Pt will be able to ambulate safely without use of a SPC. (12/04/20: Pt ambs into therapy w/o cane and mild increased sway). LTG Duration 02/16/21 (12/04/20: 1st day of met goal) Two Impairment L LE weakness limiting standing ability to 15' Short Term Goal (STG) Increase core & L hip/knee strength to improve standing ability so pt can do household chore of washing dishes and carry laundry basket to laundry room. 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 STG Duration 01/01/21 Senior Living Goal (LTG) Improve core & L LE strength with pt able to hang clothes up on clothes line without pain/weakness while reaching up. LTG Duration 02/16/21 One Impairment Pt lacks appropriate self care HEP Short Term Goal (STG) Pt will be educated in hip/low back ROM ex's to improve mobility. (11/27/20: Issued HEP: Supine hip ER/IR and positional Ilipsoas stretch, clamshell/ reverse clamshell AROM) STG Duration 12/05/20 (11/27/20: Progressed) Sales And Merchandising Associate Goal (LTG) Pt will be educated in a self care HEP for self management of pain and LB/L hip stability . (11/27/20: Issued HEP: Supine hip ER/IR and positional Ilipsoas stretch, self STMs ball roll at wall and stick rolling) LTG Duration 02/16/21 (11/27/20: Progressed ) Assessment Summary Assessment Pt's gait is normal if slow ( Normal gait mechanics at 1.6 ft/sec; limp at max speed of 2 .5 ft/sec). Preferred gait for 70 year olds is 2.79 ft/ sec. Pt not able to maintain TA tight with deep breathing, able to partially hold TA with shallow breath. Pt able to engage TA in L sidelie with cough. Able to tighten TA in R sidelie only. Poor tolerance to L LE neural stretch (sitting), with onset of LLE weakness post stretching. Physical Therapy Plan Frequency and Duration Frequency of Treatment 2x/Week Plan of Care Start Date 11/18/20 Plan of Care End Date 02/16/21 Next Visit Focus/Plan Next Note Type Treatment Note Next Visit Plan Assess recovery from LE weakness & the progress towards TA tightening & TA holding in L sidelie. Possibly add gentle LB stretch (extension) & STM to L Pirformis. POC: L LB & LE rehab for neural/lumbar spine and mechanical dysfunction of L hip. Add: Body mechanics education for low back protection. Assess UE DTRS,change in standing posture/pain without shoes. Assess hip rot strength and ankle ROM/strength. Modalities limited to MH & ice due to CA history.
--- NOTE | 2020-12-11 16:48 | PT.OTN ---
Current Diagnoses Sciatica, left side (12/11/20) Muscle weakness (generalized) (12/11/20) Other abnormalities of gait and mobility (12/11/20) Physical Therapy Treatment Note PT-OP-A Visit Information Start: 11/12/20 16:40 Freq: Status: Active Protocol: Document 12/11/20 08:18 LRN (Rec: 12/11/20 09:02 LRN [id number]) Out-Patient Physical Therapy Visit Information Visit Information Visit Type Treatment Note Visit Start Time 08:18 Visit Stop Time 09:00 Total Visit Minutes 42 Visit Number 8 Evaluation Information Evaluation Date 11/18/20 Precautions Precautions Surgical TAPE ALLERGY, Breast [place] [id number]; 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 Recent bowel prolapse. PT-OP-B Current Condition Start: 11/12/20 16:40 Freq: Status: Active Protocol: Document 11/18/20 09:04 LRN (Rec: 11/18/20 09:55 LRN [id number]) Current Condition History of Current Condition Onset Date 08/2020 Current Complaints Ache pressure pain in L LB > lateral thigh to knee & groin> knee. Heavy leg. History of Current Condition Chiropractor has been working on her back and other areas to maintain her health 3x/week for various different issues and was getting ready to decrease to 1x/week when the Sciatica pain started. Was visiting daughter in [place] when pain exacerbated. She thinks because she was sitting on very soft couches and ambulating stairs. She was given Prednisone that was helpful and allowed her to return in a car back to [place]. Ended dosage of Prednisone 1 week after Easter (October 03). She has been using Tylenol 2000mg/day spread out during the day (AM/ PM), primarily important to help her sleep at night. She denies pain with sitting or sleeping, but notes a constant ache is present in sitting. She has pressure pain with walking and has fear of falling due to weakness of the R leg. Has had sciatic before and is same leg but the pain is different. Can bend over and touch the floor without difficulty. Lives with daughter who works at home. Prior Treatments and Tests Seeing Chiropractor (YOLI Nye) 3x/week now and had received acupuncture weekly. Denies x-rays or MRI. Future Testing and Treatments Planned MRI if not improved. Developmental History Developmental History Insidious onset. Treatment Goals Patient/Caregiver Goals Pt goal is to relieve pain and strengthen L leg to feel safer with walking. Prior Functional Status Baseline Function- ADL's Independent Baseline Function- Mobility Independent Baseline Function- Gait Ambulated without assist. 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 Laptop is heaviest thing she can lift. Functional Limitations- Mobility/Gait Walks with a SPC outside, held on R side, and must wear shoes to have less pain. Drives self but needs step stool to get in/out of car. Personal Factors Other Personal Factors That May Effect Seeing chiropractor 3x/weeks, Therapy/Recovery holding off on acupuncture. PT-OP-C Subjective Start: 11/12/20 16:40 Freq: Status: Active Protocol: Document 12/11/20 08:18 LRN (Rec: 12/11/20 09:02 LRN [id number]) OP-PT Subjective Patient Comments Patient Comments States she is has been bad since the last visit. Pain rated 5-6/10. PT-OP-G Mobility & Gait Start: 11/12/20 16:40 Freq: Status: Active Protocol: Document 12/09/20 09:48 LRN (Rec: 12/09/20 10:34 LRN [id number]) OP Gait Assessment Gait Gait Assistance Required: Independent Able to Maintain Weight Bearing Status Yes During Gait Assistive Devices Assistive Device None Comments Gait Comments Gait - with normal gait mechanics: 20'/12 secs = 1.66 ft/sec Gait - fast: 20/8 secs = 2.5 ft/sec. Preferred speed for 70's: 2. 79 ft/sec. PT-OP-J Posture/Palpation/Skin Start: 11/12/20 16:40 Freq: Status: Active Protocol: Document 11/18/20 09:04 LRN (Rec: 11/18/20 09:55 LRN [id number]) Posture Evaluation Position Standing Head/C-Spine Posture Forward Head L-Spine Posture Shifted Right Shoulder Posture (L) Elevated Pelvis Posture (L) ASIS Posterior,(R) ASIS Inferior Hip Posture (L) Flexed,(R) Flexed,(L) Abducted Knee Posture (L) Excess Flexion Comments Posture Comments L Breast low, hips flexed 26 deg's, Shoes on due to increase pain in L LE without. PT-OP-K Range of Motion Start: 11/12/20 16:40 Freq: Status: Active Protocol: Document 11/20/20 08:15 LRN (Rec: 11/20/20 09:20 LRN [id number]) Hip Goniometric Range of Motion Hip Right Passive Hip ROM WFL No Testing Position Supine Flexion w/Knee Flexed 109 Internal Rotation 20 External Rotation 75 Left Passive Hip ROM WFL No Testing Position Supine Flexion w/Knee Flexed 109 Internal Rotation 20 External Rotation 40 PT-OP-M Strength Start: 11/12/20 16:40 Freq: Status: Active Protocol: Document 11/18/20 09:04 LRN (Rec: 11/18/20 09:55 LRN [id number]) Hip Strength Hip Manual Muscle Testing Right Flexion (L2) 3 Fair Abduction 2 Poor Adduction 2+ Poor+ Left Flexion (L2) 3 Fair Abduction 2- Poor- Adduction 2 Poor Knee Strength Knee Manual Muscle Testing Right Flexion (S2) 5 Normal Extension (L3) 5 Normal Left Flexion (S2) 4- Good- Extension (L3) 5 Normal PT-OP-Q Treatments Start: 11/12/20 16:40 Freq: Status: Active Protocol: Document 12/11/20 08:18 LRN (Rec: 12/11/20 09:02 LRN [id number]) Therapeutic Exercises Supine Exercises TA tightening Supine Exercise Name TA tighten, TA lakhani, & cough Reps/Minutes 5' Comments Extensive training with self cuing hands on belly Sidelying Exercises TA tightening Sidelying Exercise Name TA tightening using breathwork & cough/laugh Side bilateral Reps/Minutes 3' Comments Much phys cuing & training needed to start, crystal in L sidelie. Manual Therapy Treatment Soft Tissue Mobilization STMs Body Location R Quad/Iliopsoas/Hip AD's & AB 's w/mild pillow support at knees in supine Mobilization Type Strumming,Trigger Point Release Intensity/Depth Moderate Body Position Supine Comments Quad static supine stretch in neutral. ELIZABETH stretching in sidelye to Iliopsoas. Pt to use cane for gait to help relieve pain in L thigh/ SIJ. Manual Traction Lumbar traction Details Lumbar traction Body Position Supine Reps/Duration 5' PT-OP-T Assessment and Plan Start: 11/12/20 16:40 Freq: Status: Active Protocol: Document 12/11/20 08:18 LRN (Rec: 12/11/20 09:02 LRN [id number]) Physical Therapy Assessment Goals Three Impairment Pt requires use of assist device (SPC) for pt to feel safe with stance/gait Short Term Goal (STG) Pt will be able to get in/out of her car without use of step stool. STG Duration 01/01/21 Supervisor Brake Repair Goal (LTG) Pt will be able to ambulate safely without use of a SPC. (12/04/20: Pt ambs into therapy w/o cane and mild increased sway). LTG Duration 02/16/21 (12/04/20: 1st day of met goal) Two Impairment L LE weakness limiting standing ability to 15' Short Term Goal (STG) Increase core & L hip/knee strength to improve standing ability so pt can do household chore of washing dishes and carry laundry basket to laundry room. 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 STG Duration 01/01/21 Supervisor Brake Repair Goal (LTG) Improve core & L LE strength with pt able to hang clothes up on clothes line without pain/weakness while reaching up. LTG Duration 02/16/21 One Impairment Pt lacks appropriate self care HEP Short Term Goal (STG) Pt will be educated in hip/low back ROM ex's to improve mobility. (11/27/20: Issued HEP: Supine hip ER/IR and positional Ilipsoas stretch, clamshell/ reverse clamshell AROM) STG Duration 12/05/20 (11/27/20: Progressed) Supervisor Brake Repair Goal (LTG) Pt will be educated in a self care HEP for self management of pain and LB/L hip stability . (11/27/20: Issued HEP: Supine hip ER/IR and positional Ilipsoas stretch, self STMs ball roll at wall and stick rolling) LTG Duration 02/16/21 (11/27/20: Progressed ) Progress Towards Goals Progress Comments Pain reduced from 5-6/10 at start of therapy to 2/10 after therapy. Assessment Summary Assessment Pt attends to therapy today in apparent flared up state from doing LLE neural stretch 2x/ day. Pt showed + response to manual STM of L Iliopsoas, quad and hip AD's & AB's, with centralization of pain to SIJ and relief of pain with manual traction. 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 Pain 2/10 post therapy. Pt will need to be progressed very slowly once she recovers from her flared state; therefore she may need to use cane for a few days until she can return to painfree gait. Physical Therapy Plan Frequency and Duration Frequency of Treatment 2x/Week Plan of Care Start Date 11/18/20 Plan of Care End Date 02/16/21 Next Visit Focus/Plan Next Note Type Treatment Note Next Visit Plan POC: L LB & LE rehab for neural/lumbar spine and mechanical dysfunction of L hip. Assess response to last treatment & the pt's progress of being able to tighten TA & holding in L sidelie. Check for pelvic obliquity and correct if needed. Possibly add very gentle LB extension ( Jeyson ext program) & STM to L Pirformis. Add: Body mechanics education for low back protection. Assess UE DTRS,change in standing posture/pain without shoes. Assess hip rot strength and ankle ROM/strength. Modalities limited to MH & ice due to CA history.
--- NOTE | 2020-12-16 11:09 | PT.OTN ---
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 Recent bowel prolapse. PT-OP-B Current Condition Start: 11/12/20 16:40 Freq: Status: Active Protocol: Document 11/18/20 09:04 LRN (Rec: 11/18/20 09:55 LRN [id number]) Current Condition History of Current Condition Onset Date 08/2020 Current Complaints Ache pressure pain in L LB > lateral thigh to knee & groin> knee. Heavy leg. History of Current Condition Chiropractor has been working on her back and other areas to maintain her health 3x/week for various different issues and was getting ready to decrease to 1x/week when the Sciatica pain started. Was visiting daughter in [place] when pain exacerbated. She thinks because she was sitting on very soft couches and ambulating stairs. She was given Prednisone that was helpful and allowed her to return in a car back to [place]. Ended dosage of Prednisone 1 week after [place] (October 03). She has been using Tylenol 2000mg/day spread out during the day (AM/ PM), primarily important to help her sleep at night. She denies pain with sitting or sleeping, but notes a constant ache is present in sitting. She has pressure pain with walking and has fear of falling due to weakness of the R leg. Has had sciatic before and is same leg but the pain is different. Can bend over and touch the floor without difficulty. Lives with daughter who works at home. Prior Treatments and Tests Seeing Chiropractor (YOLI Nye) 3x/week now and had received acupuncture weekly. Denies x-rays or MRI. Future Testing and Treatments Planned MRI if not improved. Developmental History Developmental History Insidious onset. Treatment Goals Patient/Caregiver Goals Pt goal is to relieve pain and strengthen L leg to feel safer with walking. Prior Functional Status Baseline Function- ADL's Independent Baseline Function- Mobility Independent Baseline Function- Gait Ambulated without assist. 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 Laptop is heaviest thing she can lift. Functional Limitations- Mobility/Gait Walks with a SPC outside, held on R side, and must wear shoes to have less pain. Drives self but needs step stool to get in/out of car. Personal Factors Other Personal Factors That May Effect Seeing chiropractor 3x/weeks, Therapy/Recovery holding off on acupuncture. PT-OP-C Subjective Start: 11/12/20 16:40 Freq: Status: Active Protocol: Document 12/16/20 08:59 LRN (Rec: 12/16/20 11:09 LRN [id number]) OP-PT Subjective Patient Comments Patient Comments Today hardly any pain. Has been an up/down week. will see chiro 1x/month, did not see him this week. States L leg feels heavy and L hip is most painful. Pt can't move quickly due to pain. But I can lie straight now. PT-OP-G Mobility & Gait Start: 11/12/20 16:40 Freq: Status: Active Protocol: Document 12/09/20 09:48 LRN (Rec: 12/09/20 10:34 LRN [id number]) OP Gait Assessment Gait Gait Assistance Required: Independent Able to Maintain Weight Bearing Status Yes During Gait Assistive Devices Assistive Device None Comments Gait Comments Gait - with normal gait mechanics: 20'/12 secs = 1.66 ft/sec Gait - fast: 20/8 secs = 2.5 ft/sec. Preferred speed for 70's: 2. 79 ft/sec. PT-OP-J Posture/Palpation/Skin Start: 11/12/20 16:40 Freq: Status: Active Protocol: Document 11/18/20 09:04 LRN (Rec: 11/18/20 09:55 LRN [id number]) Posture Evaluation Position Standing Head/C-Spine Posture Forward Head L-Spine Posture Shifted Right Shoulder Posture (L) Elevated Pelvis Posture (L) ASIS Posterior,(R) ASIS Inferior Hip Posture (L) Flexed,(R) Flexed,(L) Abducted Knee Posture (L) Excess Flexion Comments Posture Comments L Breast low, hips flexed 26 deg's, Shoes on due to increase pain in L LE without. PT-OP-K Range of Motion Start: 11/12/20 16:40 Freq: Status: Active Protocol: Document 11/20/20 08:15 LRN (Rec: 11/20/20 09:20 LRN [id number]) Hip Goniometric Range of Motion Hip Right Passive Hip ROM WFL No Testing Position Supine Flexion w/Knee Flexed 109 Internal Rotation 20 External Rotation 75 Left Passive Hip ROM WFL No Testing Position Supine Flexion w/Knee Flexed 109 Internal Rotation 20 External Rotation 40 PT-OP-M Strength Start: 11/12/20 16:40 Freq: Status: Active Protocol: Document 11/18/20 09:04 LRN (Rec: 11/18/20 09:55 LRN [id number]) Hip Strength Hip Manual Muscle Testing Right Flexion (L2) 3 Fair Abduction 2 Poor Adduction 2+ Poor+ Left Flexion (L2) 3 Fair Abduction 2- Poor- Adduction 2 Poor Knee Strength Knee Manual Muscle Testing Right Flexion (S2) 5 Normal Extension (L3) 5 Normal Left Flexion (S2) 4- Good- Extension (L3) 5 Normal PT-OP-Q Treatments Start: 11/12/20 16:40 Freq: Status: Active Protocol: Document 12/16/20 08:59 LRN (Rec: 12/16/20 11:09 LRN [id number]) Therapeutic Exercises Supine Exercises Chest Breathing Supine Exercise Name Chest Breathing Reps/Minutes 4' Comments Extensive cuing hand belly & chest TA tightening Supine Exercise Name TA tighten, TA lakhani, & cough Reps/Minutes 8' Comments Extensive training with self cuing hands on belly Manual Therapy Treatment Soft Tissue Mobilization STMs Body Location R Quad/Iliopsoas/Hip AD's & AB 's w/mild pillow support at knees in supine Mobilization Type Strumming,Trigger Point Release Intensity/Depth Moderate Body Position Supine Comments Quad static supine stretch in neutral. ELIZABETH stretching in sidelye to Iliopsoas. Pt to use cane for gait to help relieve pain in L thigh/ SIJ. Joint Mobilizations L SIJ Joint Correction of outflare innominate Body Position Supine Reps/Duration 8' Comments Extra Care for pt to move L leg independently with mobs due to groin pain with sudden movements of LE. R SIJ Joint Correction of posteriorly rotated & inflare innominate Body Position Supine Reps/Duration 12' Comments Extra Care for pt to move L leg independently with mobs due to groin pain with sudden movements of LE. Manual Traction Lumbar traction Details Lumbar traction Body Position Supine Reps/Duration 5' PT-OP-T Assessment and Plan Start: 11/12/20 16:40 Freq: Status: Active Protocol: Document 12/16/20 08:59 LRN (Rec: 12/16/20 11:09 LRN [id number]) Physical Therapy Assessment Goals Three Impairment Pt requires use of assist device (SPC) for pt to feel safe with stance/gait Short Term Goal (STG) Pt will be able to get in/out of her car without use of step stool. STG Duration 01/01/21 [employer] Goal (LTG) Pt will be able to ambulate safely without use of a SPC. (12/04/20: Pt ambs into therapy w/o cane and mild increased sway). LTG Duration 02/16/21 (12/04/20: 1st day of met goal) Two Impairment L LE weakness limiting standing ability to 15' Short Term Goal (STG) Increase core & L hip/knee strength to improve standing ability so pt can do household chore of washing dishes and carry laundry basket to laundry room. 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 STG Duration 01/01/21 Jail Goal (LTG) Improve core & L LE strength with pt able to hang clothes up on clothes line without pain/weakness while reaching up. LTG Duration 02/16/21 One Impairment Pt lacks appropriate self care HEP Short Term Goal (STG) Pt will be educated in hip/low back ROM ex's to improve mobility. (11/27/20: Issued HEP: Supine hip ER/IR and positional Ilipsoas stretch, clamshell/ reverse clamshell AROM) STG Duration 12/05/20 (11/27/20: Progressed) Jail Goal (LTG) Pt will be educated in a self care HEP for self management of pain and LB/L hip stability . (11/27/20: Issued HEP: Supine hip ER/IR and positional Ilipsoas stretch, self STMs ball roll at wall and stick rolling) LTG Duration 02/16/21 (11/27/20: Progressed ) Progress Towards Goals Progress Comments Pt had normalization of LLE after treatment. She felt equal WBing through her LE's. and good strength in LLE. Assessment Summary Assessment Pt does not tolerate movement of her LE's if done quickly, pt responds better if she is I /S to move her legs for treatment positions with assist as needed. I was able to correct for pt's inflare/ outflare of pelvis and the pt noted feeling more even with standing and walking (L leg didn't feel short). Pt responded well to manual lumbar traction. In R sidelie the pt lumbar spine appeared to curve opposite of expected curvature. + response to STM to LLE and manual lumbar traction. Physical Therapy Plan Frequency and Duration Frequency of Treatment 2x/Week Plan of Care Start Date 11/18/20 Plan of Care End Date 02/16/21 Next Visit Focus/Plan Next Note Type Treatment Note Next Visit Plan POC: L LB & LE rehab for neural/lumbar spine and mechanical dysfunction of L hip (L outflare, R inflare). Check for pelvic obliquity and correct if needed. Monitor response to last treatment & the pt's progress of being able to hold TA with breathing/cough/heel slides & holding in L sidelie. Possibly add very gentle LB extension (Jeyson ext program) & STM to L Pirformis, IT Band & Quads. Can Add: Body mechanics education for low back protection. Assess UE DTRS,change in standing posture/pain without shoes. Assess hip rot strength and ankle ROM/strength. Modalities limited to MH & ice due to CA history.
--- NOTE | 2020-12-18 15:45 | PT.OTN ---
Current Diagnoses Sciatica, left side (12/18/20) Muscle weakness (generalized) (12/18/20) Other abnormalities of gait and mobility (12/18/20) Physical Therapy Treatment Note PT-OP-A Visit Information Start: 11/12/20 16:40 Freq: Status: Active Protocol: Document 12/18/20 09:00 AMB (Rec: 12/18/20 09:43 AMB [id number]) Out-Patient Physical Therapy Visit Information Visit Information Visit Type Progress Note Visit Start Time 09:00 Visit Stop Time 09:40 Total Visit Minutes 40 Visit Number 10 PT-OP-B Current Condition Start: 11/12/20 16:40 Freq: Status: Active Protocol: Document 11/18/20 09:04 LRN (Rec: 11/18/20 09:55 LRN [id number]) Current Condition History of Current Condition Onset Date 08/2020 Current Complaints Ache pressure pain in L LB > lateral thigh to knee & groin> knee. Heavy leg. History of Current Condition Chiropractor has been working on her back and other areas to maintain her health 3x/week for various different issues and was getting ready to decrease to 1x/week when the Sciatica pain started. Was visiting daughter in [place] when pain exacerbated. She thinks because she was sitting on very soft couches and ambulating stairs. She was given Prednisone that was helpful and allowed her to return in a car back to [place]. Ended dosage of Prednisone 1 week after [place] (October 03). She has been using Tylenol 2000mg/day spread out during the day (AM/ PM), primarily important to help her sleep at night. She denies pain with sitting or sleeping, but notes a constant ache is present in sitting. She has pressure pain with walking and has fear of falling due to weakness of the R leg. Has had sciatic before and is same leg but the pain is different. Can bend over and touch the floor without difficulty. Lives with daughter who works at home. Prior Treatments and Tests Seeing Chiropractor (YOLI Nye) 3x/week now and had received acupuncture weekly. Denies x-rays or MRI. Future Testing and Treatments Planned MRI if not improved. Developmental History Developmental History Insidious onset. Treatment Goals Patient/Caregiver Goals Pt goal is to relieve pain and strengthen L leg to feel safer with walking. Prior Functional Status Baseline Function- ADL's Independent Baseline Function- Mobility Independent Baseline Function- Gait Ambulated without assist. 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 Laptop is heaviest thing she can lift. Functional Limitations- Mobility/Gait Walks with a SPC outside, held on R side, and must wear shoes to have less pain. Drives self but needs step stool to get in/out of car. Personal Factors Other Personal Factors That May Effect Seeing chiropractor 3x/weeks, Therapy/Recovery holding off on acupuncture. PT-OP-C Subjective Start: 11/12/20 16:40 Freq: Status: Active Protocol: Document 12/18/20 09:00 AMB (Rec: 12/18/20 15:43 AMB [id number]) OP-PT Subjective Patient Comments Patient Comments Vivienne states she has been feeling better since being seen earlier this week. PT-OP-G Mobility & Gait Start: 11/12/20 16:40 Freq: Status: Active Protocol: Document 12/09/20 09:48 LRN (Rec: 12/09/20 10:34 LRN [id number]) OP Gait Assessment Gait Gait Assistance Required: Independent Able to Maintain Weight Bearing Status Yes During Gait Assistive Devices Assistive Device None Comments Gait Comments Gait - with normal gait mechanics: 20'/12 secs = 1.66 ft/sec Gait - fast: 20/8 secs = 2.5 ft/sec. Preferred speed for 70's: 2. 79 ft/sec. PT-OP-J Posture/Palpation/Skin Start: 11/12/20 16:40 Freq: Status: Active Protocol: Document 11/18/20 09:04 LRN (Rec: 11/18/20 09:55 LRN [id number]) Posture Evaluation Position Standing Head/C-Spine Posture Forward Head L-Spine Posture Shifted Right Shoulder Posture (L) Elevated Pelvis Posture (L) ASIS Posterior,(R) ASIS Inferior Hip Posture (L) Flexed,(R) Flexed,(L) Abducted Knee Posture (L) Excess Flexion Comments Posture Comments L Breast low, hips flexed 26 deg's, Shoes on due to increase pain in L LE without. PT-OP-K Range of Motion Start: 11/12/20 16:40 Freq: Status: Active Protocol: Document 11/20/20 08:15 LRN (Rec: 11/20/20 09:20 LRN [id number]) Hip Goniometric Range of Motion Hip Right Passive Hip ROM WFL No Testing Position Supine Flexion w/Knee Flexed 109 Internal Rotation 20 External Rotation 75 Left Passive Hip ROM WFL No Testing Position Supine Flexion w/Knee Flexed 109 Internal Rotation 20 External Rotation 40 PT-OP-M Strength Start: 11/12/20 16:40 Freq: Status: Active Protocol: Document 11/18/20 09:04 LRN (Rec: 11/18/20 09:55 LRN [id number]) Hip Strength Hip Manual Muscle Testing Right Flexion (L2) 3 Fair Abduction 2 Poor Adduction 2+ Poor+ Left Flexion (L2) 3 Fair Abduction 2- Poor- Adduction 2 Poor Knee Strength Knee Manual Muscle Testing Right Flexion (S2) 5 Normal Extension (L3) 5 Normal Left Flexion (S2) 4- Good- Extension (L3) 5 Normal PT-OP-Q Treatments Start: 11/12/20 16:40 Freq: Status: Active Protocol: Document 12/18/20 09:00 AMB (Rec: 12/18/20 09:43 AMB [id number]) Therapeutic Exercises Supine Exercises Roll ins and roll outs Supine Exercise Name #2 band, ball Reps/Minutes 3x10 ea Comments to facilitate PF and TA TA tightening Supine Exercise Name TA tighten, TA lakhani, & cough Reps/Minutes 8' Comments Extensive training with self cuing hands on belly Iliopsoas stretch Supine Exercise Name Iliopsoas static stretch with pillow under lower leg/ knee Side left Reps/Minutes Holding in supine position as tolerated Comments good feedback response, better after manual STMs Sidelying Exercises TA tightening Sidelying Exercise Name TA tightening using breathwork & cough/laugh Side bilateral Reps/Minutes 3' Comments vc for pelvic floor useage helped facilitate reverse clamshell Sidelying Exercise Name added to HEP Side bilateral Resistance AROM Equipment Used pillow between knees Reps/Minutes 2x10 Comments no pain if mvmt limited-cued trunk still clamshell Sidelying Exercise Name Clamshell Side bilateral Resistance AROM Equipment Used pillow between knees Reps/Minutes 3x10 Comments good feedback no pain- cued trunk still PT-OP-T Assessment and Plan Start: 11/12/20 16:40 Freq: Status: Active Protocol: Document 12/18/20 09:00 AMB (Rec: 12/18/20 09:43 AMB [id number]) Physical Therapy Assessment Goals Three Impairment Pt requires use of assist device (SPC) for pt to feel safe with stance/gait Short Term Goal (STG) Pt will be able to get in/out of her car without use of step stool. STG Duration MET [place] [employer] Goal (LTG) Pt will be able to ambulate safely without use of a SPC. (12/04/20: Pt ambs into therapy w/o cane and mild increased sway). LTG Duration 02/16/21 (12/04/20: 1st day of met goal) Two Impairment L LE weakness limiting standing ability to 15' Short Term Goal (STG) Increase core & L hip/knee strength to improve standing ability so pt can do household chore of washing dishes and carry laundry basket to laundry room. 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 LTG Duration 02/16/21 One Impairment Pt lacks appropriate self care HEP Short Term Goal (STG) Pt will be educated in hip/low back ROM ex's to improve mobility. (11/27/20: Issued HEP: Supine hip ER/IR and positional Ilipsoas stretch, clamshell/ reverse clamshell AROM) STG Duration 12/05/20 (11/27/20: Progressed) [place] [employer] Goal (LTG) Pt will be educated in a self care HEP for self management of pain and LB/L hip stability . (11/27/20: Issued HEP: Supine hip ER/IR and positional Ilipsoas stretch, self STMs ball roll at wall and stick rolling) LTG Duration 02/16/21 (11/27/20: Progressed ) Assessment Summary Assessment Pt continued to feel better after last session and has been able to perform car transfer without stool as a result. Continues to have difficulty coordinating breathing and deep core stabilization. Continues to have L LE tension especially with any quicker movements. Physical Therapy Plan Next Visit Focus/Plan Next Note Type Treatment Note Next Visit Plan POC: L LB & LE rehab for neural/lumbar spine and mechanical dysfunction of L hip (L outflare, R inflare). Check for pelvic obliquity and correct if needed. Monitor response to last treatment & the pt's progress of being able to hold TA with breathing/cough/heel slides & holding in L sidelie. Possibly add very gentle LB extension (Jeyson ext program) & STM to L Pirformis, IT Band & Quads. Can Add: Body mechanics education for low back protection. Assess UE DTRS,change in standing posture/pain without shoes. Assess hip rot strength and ankle ROM/strength. Modalities limited to MH & ice due to CA history.
--- NOTE | 2020-12-23 09:25 | PT.OTN ---
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 Recent bowel prolapse. PT-OP-B Current Condition Start: 11/12/20 16:40 Freq: Status: Active Protocol: Document 11/18/20 09:04 LRN (Rec: 11/18/20 09:55 LRN [id number]) Current Condition History of Current Condition Onset Date 08/2020 Current Complaints Ache pressure pain in L LB > lateral thigh to knee & groin> knee. Heavy leg. History of Current Condition Chiropractor has been working on her back and other areas to maintain her health 3x/week for various different issues and was getting ready to decrease to 1x/week when the Sciatica pain started. Was visiting daughter in [place] when pain exacerbated. She thinks because she was sitting on very soft couches and ambulating stairs. She was given Prednisone that was helpful and allowed her to return in a car back to [place]. Ended dosage of Prednisone 1 week after Easter (October 03). She has been using Tylenol 2000mg/day spread out during the day (AM/ PM), primarily important to help her sleep at night. She denies pain with sitting or sleeping, but notes a constant ache is present in sitting. She has pressure pain with walking and has fear of falling due to weakness of the R leg. Has had sciatic before and is same leg but the pain is different. Can bend over and touch the floor without difficulty. Lives with daughter who works at home. Prior Treatments and Tests Seeing Chiropractor (YOLI Nye) 3x/week now and had received acupuncture weekly. Denies x-rays or MRI. Future Testing and Treatments Planned MRI if not improved. Developmental History Developmental History Insidious onset. Treatment Goals Patient/Caregiver Goals Pt goal is to relieve pain and strengthen L leg to feel safer with walking. Prior Functional Status Baseline Function- ADL's Independent Baseline Function- Mobility Independent Baseline Function- Gait Ambulated without assist. 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 Laptop is heaviest thing she can lift. Functional Limitations- Mobility/Gait Walks with a SPC outside, held on R side, and must wear shoes to have less pain. Drives self but needs step stool to get in/out of car. Personal Factors Other Personal Factors That May Effect Seeing chiropractor 3x/weeks, Therapy/Recovery holding off on acupuncture. PT-OP-C Subjective Start: 11/12/20 16:40 Freq: Status: Active Protocol: Document 12/23/20 09:16 OF (Rec: 12/23/20 09:25 OF [email or web address]) OP-PT Subjective Patient Comments Patient Comments I have been feeling better with the exercises, less pain throughout the day Patient Reported Progress Improving OP-PT Pain Assessment Pain Assessment Grid Paper Pain Assessment Grid Completed No: Pt denies pain this AM PT-OP-G Mobility & Gait Start: 11/12/20 16:40 Freq: Status: Active Protocol: Document 12/09/20 09:48 LRN (Rec: 12/09/20 10:34 LRN [id number]) OP Gait Assessment Gait Gait Assistance Required: Independent Able to Maintain Weight Bearing Status Yes During Gait Assistive Devices Assistive Device None Comments Gait Comments Gait - with normal gait mechanics: 20'/12 secs = 1.66 ft/sec Gait - fast: 20/8 secs = 2.5 ft/sec. Preferred speed for 70's: 2. 79 ft/sec. PT-OP-J Posture/Palpation/Skin Start: 11/12/20 16:40 Freq: Status: Active Protocol: Document 11/18/20 09:04 LRN (Rec: 11/18/20 09:55 LRN [id number]) Posture Evaluation Position Standing Head/C-Spine Posture Forward Head L-Spine Posture Shifted Right Shoulder Posture (L) Elevated Pelvis Posture (L) ASIS Posterior,(R) ASIS Inferior Hip Posture (L) Flexed,(R) Flexed,(L) Abducted Knee Posture (L) Excess Flexion Comments Posture Comments L Breast low, hips flexed 26 deg's, Shoes on due to increase pain in L LE without. PT-OP-K Range of Motion Start: 11/12/20 16:40 Freq: Status: Active Protocol: Document 11/20/20 08:15 LRN (Rec: 11/20/20 09:20 LRN [id number]) Hip Goniometric Range of Motion Hip Right Passive Hip ROM WFL No Testing Position Supine Flexion w/Knee Flexed 109 Internal Rotation 20 External Rotation 75 Left Passive Hip ROM WFL No Testing Position Supine Flexion w/Knee Flexed 109 Internal Rotation 20 External Rotation 40 PT-OP-M Strength Start: 11/12/20 16:40 Freq: Status: Active Protocol: Document 11/18/20 09:04 LRN (Rec: 11/18/20 09:55 LRN [id number]) Hip Strength Hip Manual Muscle Testing Right Flexion (L2) 3 Fair Abduction 2 Poor Adduction 2+ Poor+ Left Flexion (L2) 3 Fair Abduction 2- Poor- Adduction 2 Poor Knee Strength Knee Manual Muscle Testing Right Flexion (S2) 5 Normal Extension (L3) 5 Normal Left Flexion (S2) 4- Good- Extension (L3) 5 Normal PT-OP-Q Treatments Start: 11/12/20 16:40 Freq: Status: Active Protocol: Document 12/23/20 09:16 OF (Rec: 12/23/20 09:25 OF [email or web address]) Therapeutic Exercises Supine Exercises Roll ins and roll outs Supine Exercise Name #2 band, ball Reps/Minutes 3x10 ea Comments to facilitate PF and TA TA tightening Supine Exercise Name TA tighten, TA lakhani, & cough Reps/Minutes 3x10 Comments Extensive training with self cuing hands on belly Iliopsoas stretch Supine Exercise Name Iliopsoas static stretch with pillow under lower leg/ knee Side left Reps/Minutes Holding in supine position as tolerated Comments cues to relax extended leg for stretch improves performance Piriformis stretch Supine Exercise Name Piriformis stretch (L initial just rest on opp knee before added stretch) Side bilateral Reps/Minutes 30 x2 Comments good feedback stretch Sidelying Exercises TA tightening Sidelying Exercise Name TA tightening using breathwork & cough/laugh Side bilateral Reps/Minutes 3x10 Comments improved stabilization with cues clamshell Sidelying Exercise Name Clamshell Side bilateral Resistance AROM Equipment Used pillow between knees Reps/Minutes 3x10 Comments including TA contraction Standing Exercises standing extension Side bilateral Reps/Minutes 3x10 Comments both UE at lumbar gentle spinal extension SB stretch Standing Exercise Name R SB stretch Side right Reps/Minutes 1' Manual Therapy Treatment Soft Tissue Mobilization STMs Body Location R Quad/Iliopsoas/Hip AD's & AB 's w/mild pillow support at knees in supine Mobilization Type Cross-Friction,Strumming, Trigger Point Release Intensity/Depth Moderate Body Position Supine Comments using rolling pin for STM Self-Care/Home Management Treatment Education Patient Education Body Mechanics,Home Exercise Program PT-OP-T Assessment and Plan Start: 11/12/20 16:40 Freq: Status: Active Protocol: Document 12/23/20 09:16 OF (Rec: 12/23/20 09:25 OF [email or web address]) Physical Therapy Assessment Rehab Potential Rehabilitation Potential Good Evaluation Complexity Number of Personal Factors/Comorbidities 1-2 Number of Body Systems Impaired 1-2 Clinical Presentation at Evaluation Stable Impairments Impairments Coordination,Pain,Strength Goals Three Impairment Pt requires use of assist device (SPC) for pt to feel safe with stance/gait Short Term Goal (STG) Pt will be able to get in/out of her car without use of step stool. STG Duration MET Library Sales Consultant Goal (LTG) Pt will be able to ambulate safely without use of a SPC. (12/04/20: Pt ambs into therapy w/o cane and mild increased sway). LTG Duration 02/16/21 (12/04/20: 1st day of met goal) Two Impairment L LE weakness limiting standing ability to 15' Short Term Goal (STG) Increase core & L hip/knee strength to improve standing ability so pt can do household chore of washing dishes and carry laundry basket to laundry room. 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 LTG Duration 02/16/21 One Impairment Pt lacks appropriate self care HEP Short Term Goal (STG) Pt will be educated in hip/low back ROM ex's to improve mobility. (11/27/20: Issued HEP: Supine hip ER/IR and positional Ilipsoas stretch, clamshell/ reverse clamshell AROM) STG Duration 12/05/20 (11/27/20: Progressed) Jail Goal (LTG) Pt will be educated in a self care HEP for self management of pain and LB/L hip stability . (11/27/20: Issued HEP: Supine hip ER/IR and positional Ilipsoas stretch, self STMs ball roll at wall and stick rolling) LTG Duration 02/16/21 (11/27/20: Progressed ) Progress Towards Goals Progress Towards Goals Progressing Toward Goals Assessment Summary Assessment Pt responded well to stabilization exercises last tx, she reports reduced pain since. She has improved TA control and stability with LE movement and ADL. She is agreeable to spinal extension while standing for HEP. She has good ROM and reports feeling great after repeated extension today. Physical Therapy Plan Frequency and Duration Plan of Care Start Date 11/18/20 Next Visit Focus/Plan Next Note Type Treatment Note Next Visit Plan continue to stabilize, progress extensions. pt has responded well to exercise and self mobilization/massage
--- NOTE | 2020-12-25 17:35 | PT.OTN ---
Current Diagnoses Sciatica, left side (12/25/20) Muscle weakness (generalized) (12/25/20) Other abnormalities of gait and mobility (12/25/20) Physical Therapy Treatment Note PT-OP-A Visit Information Start: 11/12/20 16:40 Freq: Status: Active Protocol: Document 12/25/20 08:19 LRN (Rec: 12/25/20 09:04 LRN [id number]) Out-Patient Physical Therapy Visit Information Visit Information Visit Type Treatment Note Visit Note 2 after PN Visit Start Time 08:19 Visit Stop Time 09:02 Total Visit Minutes 43 Visit Number 12 Evaluation Information Evaluation Date 11/18/20 Precautions Precautions Surgical TAPE ALLERGY, Breast [place] [id number]; 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 Recent bowel prolapse. PT-OP-B Current Condition Start: 11/12/20 16:40 Freq: Status: Active Protocol: Document 11/18/20 09:04 LRN (Rec: 11/18/20 09:55 LRN [id number]) Current Condition History of Current Condition Onset Date 08/2020 Current Complaints Ache pressure pain in L LB > lateral thigh to knee & groin> knee. Heavy leg. History of Current Condition Chiropractor has been working on her back and other areas to maintain her health 3x/week for various different issues and was getting ready to decrease to 1x/week when the Sciatica pain started. Was visiting daughter in [place] when pain exacerbated. She thinks because she was sitting on very soft couches and ambulating stairs. She was given Prednisone that was helpful and allowed her to return in a car back to [place]. Ended dosage of Prednisone 1 week after [place] (October 03). She has been using Tylenol 2000mg/day spread out during the day (AM/ PM), primarily important to help her sleep at night. She denies pain with sitting or sleeping, but notes a constant ache is present in sitting. She has pressure pain with walking and has fear of falling due to weakness of the R leg. Has had sciatic before and is same leg but the pain is different. Can bend over and touch the floor without difficulty. Lives with daughter who works at home. Prior Treatments and Tests Seeing Chiropractor (YOLI Nye) 3x/week now and had received acupuncture weekly. Denies x-rays or MRI. Future Testing and Treatments Planned MRI if not improved. Developmental History Developmental History Insidious onset. Treatment Goals Patient/Caregiver Goals Pt goal is to relieve pain and strengthen L leg to feel safer with walking. Prior Functional Status Baseline Function- ADL's Independent Baseline Function- Mobility Independent Baseline Function- Gait Ambulated without assist. 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 Laptop is heaviest thing she can lift. Functional Limitations- Mobility/Gait Walks with a SPC outside, held on R side, and must wear shoes to have less pain. Drives self but needs step stool to get in/out of car. Personal Factors Other Personal Factors That May Effect Seeing chiropractor 3x/weeks, Therapy/Recovery holding off on acupuncture. PT-OP-C Subjective Start: 11/12/20 16:40 Freq: Status: Active Protocol: Document 12/25/20 08:19 LRN (Rec: 12/25/20 09:04 LRN [id number]) OP-PT Subjective Patient Comments Patient Comments Doing well. PT-OP-G Mobility & Gait Start: 11/12/20 16:40 Freq: Status: Active Protocol: Document 12/09/20 09:48 LRN (Rec: 12/09/20 10:34 LRN [id number]) OP Gait Assessment Gait Gait Assistance Required: Independent Able to Maintain Weight Bearing Status Yes During Gait Assistive Devices Assistive Device None Comments Gait Comments Gait - with normal gait mechanics: 20'/12 secs = 1.66 ft/sec Gait - fast: 20/8 secs = 2.5 ft/sec. Preferred speed for 70's: 2. 79 ft/sec. PT-OP-J Posture/Palpation/Skin Start: 11/12/20 16:40 Freq: Status: Active Protocol: Document 11/18/20 09:04 LRN (Rec: 11/18/20 09:55 LRN [id number]) Posture Evaluation Position Standing Head/C-Spine Posture Forward Head L-Spine Posture Shifted Right Shoulder Posture (L) Elevated Pelvis Posture (L) ASIS Posterior,(R) ASIS Inferior Hip Posture (L) Flexed,(R) Flexed,(L) Abducted Knee Posture (L) Excess Flexion Comments Posture Comments L Breast low, hips flexed 26 deg's, Shoes on due to increase pain in L LE without. PT-OP-K Range of Motion Start: 11/12/20 16:40 Freq: Status: Active Protocol: Document 11/20/20 08:15 LRN (Rec: 11/20/20 09:20 LRN [id number]) Hip Goniometric Range of Motion Hip Right Passive Hip ROM WFL No Testing Position Supine Flexion w/Knee Flexed 109 Internal Rotation 20 External Rotation 75 Left Passive Hip ROM WFL No Testing Position Supine Flexion w/Knee Flexed 109 Internal Rotation 20 External Rotation 40 PT-OP-M Strength Start: 11/12/20 16:40 Freq: Status: Active Protocol: Document 11/18/20 09:04 LRN (Rec: 11/18/20 09:55 LRN [id number]) Hip Strength Hip Manual Muscle Testing Right Flexion (L2) 3 Fair Abduction 2 Poor Adduction 2+ Poor+ Left Flexion (L2) 3 Fair Abduction 2- Poor- Adduction 2 Poor Knee Strength Knee Manual Muscle Testing Right Flexion (S2) 5 Normal Extension (L3) 5 Normal Left Flexion (S2) 4- Good- Extension (L3) 5 Normal PT-OP-Q Treatments Start: 11/12/20 16:40 Freq: Status: Active Protocol: Document 12/25/20 08:19 LRN (Rec: 12/25/20 09:04 LRN [id number]) Therapeutic Exercises Sidelying Exercises Stretch into R SB Sidelying Exercise Name R sidelie with pillow under L/ S region Reps/Minutes 3' reverse clamshell Sidelying Exercise Name Hip IR Side right Resistance AROM Equipment Used pillow between knees Reps/Minutes 2x10 Comments no pain if mvmt limited-cued trunk still clamshell Sidelying Exercise Name Clamshell Side left Resistance AROM Equipment Used pillow between knees Reps/Minutes 3x10 Comments including TA contraction Sitting Exercises adductor stretch Sitting Exercise Name side lunge (modified standing doing with daughter) Side left Equipment Used seated on chair Reps/Minutes 30 x2 Comments good response compared to standing-to challenging. Hip ER/IR Sitting Exercise Name Sit with RLE in IR/LLE in ER ( slight) Reps/Minutes 3' Standing Exercises standing extension Side bilateral Reps/Minutes 3x10 Comments both UE at lumbar gentle spinal extension Manual Therapy Treatment Soft Tissue Mobilization LLQ fascial mob Body Location Area of sigmoid Mobilization Type Myofascial Release Intensity/Depth Moderate Body Position R sidelie STMs Body Location L Iliopsoas/Hip AD's w/mild pillow support at knees in supine Mobilization Type Cross-Friction,Strumming, Trigger Point Release Intensity/Depth Moderate Body Position Supine Comments using rolling pin for STM PT-OP-T Assessment and Plan Start: 11/12/20 16:40 Freq: Status: Active Protocol: Document 12/25/20 08:19 LRN (Rec: 12/25/20 09:04 LRN [id number]) Physical Therapy Assessment Goals Three Impairment Pt requires use of assist device (SPC) for pt to feel safe with stance/gait Short Term Goal (STG) Pt will be able to get in/out of her car without use of step stool. STG Duration MET Relocation Coordinator Goal (LTG) Pt will be able to ambulate safely without use of a SPC. (12/25/20: Uses cane outside just in case). LTG Duration 02/16/21 (12/25/20: Improved) Two Impairment L LE weakness limiting standing ability to 15' Short Term Goal (STG) Increase core & L hip/knee strength to improve standing ability so pt can do household chore of washing dishes and carry laundry basket to laundry room. 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 Can't carry laundry basket to laundry room) STG Duration 01/01/21 (12/25/20: Can stand for dishes, not able to carry laudry basket) Relocation Coordinator Goal (LTG) Improve core & L LE strength with pt able to hang clothes up on clothes line without pain/weakness while reaching up. LTG Duration 02/16/21 (12/25/20: MET GOAL) One Impairment Pt lacks appropriate self care HEP Short Term Goal (STG) Pt will be educated in hip/low back ROM ex's to improve mobility. (11/27/20: Issued HEP: Supine hip ER/IR and positional Ilipsoas stretch, clamshell/ reverse clamshell AROM) STG Duration 12/05/20 (11/27/20: Progressed) Relocation Coordinator Goal (LTG) Pt will be educated in a self care HEP for self management of pain and LB/L hip stability . (11/27/20: Issued HEP: Supine hip ER/IR and positional Ilipsoas stretch, self STMs ball roll at wall and stick rolling) LTG Duration 02/16/21 (11/27/20: Progressed ) Assessment Summary Assessment Pt able to R sidelie with pillow under small of back on lateral side. + response to treatment with no pain complaints. Pt trunk appears L shifted in standing with tightness of L lateral trunk, abdomen, and hip. Tolerance to trunk extension is improving. No soft tissue dysfunction of L hip ms noted with palpation today. Her R breast is high since undergoing radiation therapy; therefore causing sidebending posture to the left thereby shortening trunk tissues on the left. Physical Therapy Plan Frequency and Duration Frequency of Treatment 2x/Week Plan of Care Start Date 11/18/20 Plan of Care End Date 02/16/21 Next Visit Focus/Plan Next Note Type Treatment Note Next Visit Plan POC: L LB & LE rehab for neural/lumbar spine and mechanical dysfunction of L hip (L outflare, R inflare). Check for pelvic obliquity and correct if needed. Monitor response to MFR/STM of abdomen & the pt's progress of being able to hold TA with breathing/cough/heel slides & holding in L sidelie. Slowly progress very gentle LB extension (Jeyson ext program). As needed, STM to L Pirformis, IT Band & Quads. Can Add: Body mechanics education for low back protection. Assess UE DTRS,change in standing posture/pain without shoes. Assess hip rot strength and ankle ROM/strength. Modalities limited to MH & ice due to CA history.
--- NOTE | 2020-12-30 15:48 | PT.OTN ---
Current Diagnoses Sciatica, left side (12/30/20) Muscle weakness (generalized) (12/30/20) Other abnormalities of gait and mobility (12/30/20) Physical Therapy Treatment Note PT-OP-A Visit Information Start: 11/12/20 16:40 Freq: Status: Active Protocol: Document 12/30/20 08:17 LRN (Rec: 12/30/20 09:06 LRN [id number]) Out-Patient Physical Therapy Visit Information Visit Information Visit Type Treatment Note Visit Start Time 08:17 Visit Stop Time 09:04 Total Visit Minutes 47 Visit Number 13 Evaluation Information Evaluation Date 11/18/20 Precautions Precautions Surgical TAPE ALLERGY, Breast [place] [id number]; 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 Recent bowel prolapse. PT-OP-B Current Condition Start: 11/12/20 16:40 Freq: Status: Active Protocol: Document 11/18/20 09:04 LRN (Rec: 11/18/20 09:55 LRN [id number]) Current Condition History of Current Condition Onset Date 08/2020 Current Complaints Ache pressure pain in L LB > lateral thigh to knee & groin> knee. Heavy leg. History of Current Condition Chiropractor has been working on her back and other areas to maintain her health 3x/week for various different issues and was getting ready to decrease to 1x/week when the Sciatica pain started. Was visiting daughter in [place] when pain exacerbated. She thinks because she was sitting on very soft couches and ambulating stairs. She was given Prednisone that was helpful and allowed her to return in a car back to [place]. Ended dosage of Prednisone 1 week after Easter (October 03). She has been using Tylenol 2000mg/day spread out during the day (AM/ PM), primarily important to help her sleep at night. She denies pain with sitting or sleeping, but notes a constant ache is present in sitting. She has pressure pain with walking and has fear of falling due to weakness of the R leg. Has had sciatic before and is same leg but the pain is different. Can bend over and touch the floor without difficulty. Lives with daughter who works at home. Prior Treatments and Tests Seeing Chiropractor (YOLI Nye) 3x/week now and had received acupuncture weekly. Denies x-rays or MRI. Future Testing and Treatments Planned MRI if not improved. Developmental History Developmental History Insidious onset. Treatment Goals Patient/Caregiver Goals Pt goal is to relieve pain and strengthen L leg to feel safer with walking. Prior Functional Status Baseline Function- ADL's Independent Baseline Function- Mobility Independent Baseline Function- Gait Ambulated without assist. 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 Laptop is heaviest thing she can lift. Functional Limitations- Mobility/Gait Walks with a SPC outside, held on R side, and must wear shoes to have less pain. Drives self but needs step stool to get in/out of car. Personal Factors Other Personal Factors That May Effect Seeing chiropractor 3x/weeks, Therapy/Recovery holding off on acupuncture. PT-OP-C Subjective Start: 11/12/20 16:40 Freq: Status: Active Protocol: Document 12/30/20 08:17 LRN (Rec: 12/30/20 09:06 LRN [id number]) OP-PT Subjective Patient Comments Patient Comments Wakes without pain, as day progresses, feels L SIJ pain more. Walking into therapy, no pain. Started sewing again , not limited by pain. PT-OP-G Mobility & Gait Start: 11/12/20 16:40 Freq: Status: Active Protocol: Document 12/09/20 09:48 LRN (Rec: 12/09/20 10:34 LRN [id number]) OP Gait Assessment Gait Gait Assistance Required: Independent Able to Maintain Weight Bearing Status Yes During Gait Assistive Devices Assistive Device None Comments Gait Comments Gait - with normal gait mechanics: 20'/12 secs = 1.66 ft/sec Gait - fast: 20/8 secs = 2.5 ft/sec. Preferred speed for 70's: 2. 79 ft/sec. PT-OP-J Posture/Palpation/Skin Start: 11/12/20 16:40 Freq: Status: Active Protocol: Document 11/18/20 09:04 LRN (Rec: 11/18/20 09:55 LRN [id number]) Posture Evaluation Position Standing Head/C-Spine Posture Forward Head L-Spine Posture Shifted Right Shoulder Posture (L) Elevated Pelvis Posture (L) ASIS Posterior,(R) ASIS Inferior Hip Posture (L) Flexed,(R) Flexed,(L) Abducted Knee Posture (L) Excess Flexion Comments Posture Comments L Breast low, hips flexed 26 deg's, Shoes on due to increase pain in L LE without. PT-OP-K Range of Motion Start: 11/12/20 16:40 Freq: Status: Active Protocol: Document 11/20/20 08:15 LRN (Rec: 11/20/20 09:20 LRN [id number]) Hip Goniometric Range of Motion Hip Right Passive Hip ROM WFL No Testing Position Supine Flexion w/Knee Flexed 109 Internal Rotation 20 External Rotation 75 Left Passive Hip ROM WFL No Testing Position Supine Flexion w/Knee Flexed 109 Internal Rotation 20 External Rotation 40 PT-OP-M Strength Start: 11/12/20 16:40 Freq: Status: Active Protocol: Document 11/18/20 09:04 LRN (Rec: 11/18/20 09:55 LRN [id number]) Hip Strength Hip Manual Muscle Testing Right Flexion (L2) 3 Fair Abduction 2 Poor Adduction 2+ Poor+ Left Flexion (L2) 3 Fair Abduction 2- Poor- Adduction 2 Poor Knee Strength Knee Manual Muscle Testing Right Flexion (S2) 5 Normal Extension (L3) 5 Normal Left Flexion (S2) 4- Good- Extension (L3) 5 Normal PT-OP-Q Treatments Start: 11/12/20 16:40 Freq: Status: Active Protocol: Document 12/30/20 08:17 LRN (Rec: 12/30/20 09:06 LRN [id number]) Therapeutic Exercises Supine Exercises TA tightening Supine Exercise Name TA tightening Reps/Minutes 6' Sidelying Exercises Stretch into R SB Sidelying Exercise Name R sidelie with pillow under L/ S region Reps/Minutes 3' TA tightening Sidelying Exercise Name TA tightening using breathwork & cough/laugh Side bilateral Reps/Minutes 10 hold, 10x each Comments improved stabilization with cues Standing Exercises L SB stretch Standing Exercise Name L SB to stretch R trunk Side left Reps/Minutes 2' PT-OP-T Assessment and Plan Start: 11/12/20 16:40 Freq: Status: Active Protocol: Document 12/30/20 08:17 LRN (Rec: 12/30/20 09:06 LRN [id number]) Physical Therapy Assessment Goals Three Impairment Pt requires use of assist device (SPC) for pt to feel safe with stance/gait Short Term Goal (STG) Pt will be able to get in/out of her car without use of step stool. STG Duration GOAL MET Custodial Goal (LTG) Pt will be able to ambulate safely without use of a SPC. (12/25/20: Uses cane outside just in case). LTG Duration 02/16/21 (12/25/20: Improved) Two Impairment L LE weakness limiting standing ability to 15' Short Term Goal (STG) Increase core & L hip/knee strength to improve standing ability so pt can do household chore of washing dishes and carry laundry basket to laundry room. 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 Can't carry laundry basket to laundry room) STG Duration 01/01/21 (12/25/20: Can stand for dishes, not able to carry laundry basket) Custodial Goal (LTG) Improve core & L LE strength with pt able to hang clothes up on clothes line without pain/weakness while reaching up. LTG Duration 02/16/21 (12/25/20: MET GOAL) One Impairment Pt lacks appropriate self care HEP Short Term Goal (STG) Pt will be educated in hip/low back ROM ex's to improve mobility. (11/27/20: Issued HEP: Supine hip ER/IR and positional Ilipsoas stretch, clamshell/ reverse clamshell AROM) STG Duration 12/05/20 (11/27/20: Progressed) Custodial Goal (LTG) Pt will be educated in a self care HEP for self management of pain and LB/L hip stability . (11/27/20: Issued HEP: Supine hip ER/IR and positional Ilipsoas stretch, self STMs ball roll at wall and stick rolling) LTG Duration 02/16/21 (11/27/20: Progressed ) Progress Towards Goals Progress Comments Pt now able to lie on L side without pain, only ms tension. Assessment Summary Assessment L hip AD very tight to start, much relaxed after Man mob. Pt able to lie on R side with only tension in L hip, but no pain. Pt feeling more equal WBing in legs, but trunk is shifted R, due to possibly Tightness of R lateral trunk; therefore further R lateral trunk stretching needed. Physical Therapy Plan Frequency and Duration Frequency of Treatment 2x/Week Plan of Care Start Date 11/18/20 Plan of Care End Date 02/16/21 Next Visit Focus/Plan Next Note Type Treatment Note Next Visit Plan Continue breathing training in supine with TA tight. Teach self assessment/ treatment of SIJ dysfunction and add: Body mechanics education for low back protection. Stretch L trunk and L lateral trunk glide. Add gentle LB flexibilty ex ( STG#1: Sitting pelvic clock movements, trunk ext, avoiding flexion). Assess hip rot strength and ankle ROM/strength for HEP if needed. Gait training with cane on uneven surface to promote stability with gait outside home. Primary PT POC: L LB & LE rehab for neural/lumbar spine and mechanical dysfunction of L hip (L outflare, R inflare). Check for pelvic obliquity and correct if needed. Monitor response to MFR/STM of abdomen & the pt's progress of being able to hold TA with breathing/cough/heel slides & holding in L sidelie. Slowly progress very gentle LB extension (Jeyson ext program). As needed, STM to L Pirformis, IT Band & Quads. Assess UE DTRS,change in standing posture/pain without shoes. Modalities limited to MH & ice due to CA history.
--- NOTE | 2021-01-01 18:03 | PT.OTN ---
Current Diagnoses Sciatica, left side (01/01/21) Muscle weakness (generalized) (01/01/21) Other abnormalities of gait and mobility (01/01/21) Physical Therapy Treatment Note PT-OP-A Visit Information Start: 11/12/20 16:40 Freq: Status: Active Protocol: Document 01/01/21 09:02 LRN (Rec: 01/01/21 09:48 LRN [id number]) Out-Patient Physical Therapy Visit Information Visit Information Visit Type Treatment Note Visit Start Time 09:02 Visit Stop Time 09:44 Total Visit Minutes 42 Visit Number 14 Evaluation Information Evaluation Date 11/18/20 Precautions Precautions Surgical TAPE ALLERGY, Breast [place] [id number]; 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 Recent bowel prolapse. PT-OP-B Current Condition Start: 11/12/20 16:40 Freq: Status: Active Protocol: Document 11/18/20 09:04 LRN (Rec: 11/18/20 09:55 LRN [id number]) Current Condition History of Current Condition Onset Date 08/2020 Current Complaints Ache pressure pain in L LB > lateral thigh to knee & groin> knee. Heavy leg. History of Current Condition Chiropractor has been working on her back and other areas to maintain her health 3x/week for various different issues and was getting ready to decrease to 1x/week when the Sciatica pain started. Was visiting daughter in [place] when pain exacerbated. She thinks because she was sitting on very soft couches and ambulating stairs. She was given Prednisone that was helpful and allowed her to return in a car back to [place]. Ended dosage of Prednisone 1 week after Easter (October 03). She has been using Tylenol 2000mg/day spread out during the day (AM/ PM), primarily important to help her sleep at night. She denies pain with sitting or sleeping, but notes a constant ache is present in sitting. She has pressure pain with walking and has fear of falling due to weakness of the R leg. Has had sciatic before and is same leg but the pain is different. Can bend over and touch the floor without difficulty. Lives with daughter who works at home. Prior Treatments and Tests Seeing Chiropractor (YOLI Nye) 3x/week now and had received acupuncture weekly. Denies x-rays or MRI. Future Testing and Treatments Planned MRI if not improved. Developmental History Developmental History Insidious onset. Treatment Goals Patient/Caregiver Goals Pt goal is to relieve pain and strengthen L leg to feel safer with walking. Prior Functional Status Baseline Function- ADL's Independent Baseline Function- Mobility Independent Baseline Function- Gait Ambulated without assist. 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 Laptop is heaviest thing she can lift. Functional Limitations- Mobility/Gait Walks with a SPC outside, held on R side, and must wear shoes to have less pain. Drives self but needs step stool to get in/out of car. Personal Factors Other Personal Factors That May Effect Seeing chiropractor 3x/weeks, Therapy/Recovery holding off on acupuncture. PT-OP-C Subjective Start: 11/12/20 16:40 Freq: Status: Active Protocol: Document 01/01/21 09:02 LRN (Rec: 01/01/21 09:48 LRN [id number]) OP-PT Subjective Patient Comments Patient Comments Had bad 2 days. In mornings it isn't bad and rarely feels it, so right not it's not too bad. After last treatment had to take tylenol and the pain didn't go away. Has been able to stand longer, ~10-15' before having to sit down. PT-OP-G Mobility & Gait Start: 11/12/20 16:40 Freq: Status: Active Protocol: Document 12/09/20 09:48 LRN (Rec: 12/09/20 10:34 LRN [id number]) OP Gait Assessment Gait Gait Assistance Required: Independent Able to Maintain Weight Bearing Status Yes During Gait Assistive Devices Assistive Device None Comments Gait Comments Gait - with normal gait mechanics: 20'/12 secs = 1.66 ft/sec Gait - fast: 20/8 secs = 2.5 ft/sec. Preferred speed for 70's: 2. 79 ft/sec. PT-OP-J Posture/Palpation/Skin Start: 11/12/20 16:40 Freq: Status: Active Protocol: Document 11/18/20 09:04 LRN (Rec: 11/18/20 09:55 LRN [id number]) Posture Evaluation Position Standing Head/C-Spine Posture Forward Head L-Spine Posture Shifted Right Shoulder Posture (L) Elevated Pelvis Posture (L) ASIS Posterior,(R) ASIS Inferior Hip Posture (L) Flexed,(R) Flexed,(L) Abducted Knee Posture (L) Excess Flexion Comments Posture Comments L Breast low, hips flexed 26 deg's, Shoes on due to increase pain in L LE without. PT-OP-K Range of Motion Start: 11/12/20 16:40 Freq: Status: Active Protocol: Document 11/20/20 08:15 LRN (Rec: 11/20/20 09:20 LRN [id number]) Hip Goniometric Range of Motion Hip Right Passive Hip ROM WFL No Testing Position Supine Flexion w/Knee Flexed 109 Internal Rotation 20 External Rotation 75 Left Passive Hip ROM WFL No Testing Position Supine Flexion w/Knee Flexed 109 Internal Rotation 20 External Rotation 40 PT-OP-M Strength Start: 11/12/20 16:40 Freq: Status: Active Protocol: Document 11/18/20 09:04 LRN (Rec: 11/18/20 09:55 LRN [id number]) Hip Strength Hip Manual Muscle Testing Right Flexion (L2) 3 Fair Abduction 2 Poor Adduction 2+ Poor+ Left Flexion (L2) 3 Fair Abduction 2- Poor- Adduction 2 Poor Knee Strength Knee Manual Muscle Testing Right Flexion (S2) 5 Normal Extension (L3) 5 Normal Left Flexion (S2) 4- Good- Extension (L3) 5 Normal PT-OP-Q Treatments Start: 11/12/20 16:40 Freq: Status: Active Protocol: Document 01/01/21 09:02 LRN (Rec: 01/01/21 09:48 LRN [id number]) Therapeutic Exercises Standing Exercises Lateral trunk shift Standing Exercise Name R shoulder on wall to correct a R lateral trunk shift Side right Reps/Minutes 2' x 2 standing extension Standing Exercise Name Standing trunk extension Side bilateral Reps/Minutes 4' Comments both UE at lumbar gentle spinal extension Gait Training Gait Activity Walking with TA Description TA tightening with gait Surface Level Distance/Duration 9' Treatment Focus Proper weight shift of trunk over L hip and decrease of R trunk SB. Comments Physical and verbal cuing needed. Manual Therapy Treatment Manual Traction Static self lumbar traction Details Supine with legs on traction bolster. Body Position Supine Reps/Duration 3' Comments Pt had pain with rolling to R side after being on traction. Pain diminished with use of TA tightening during transfer into standing. Lumbar traction Details Lumbar traction Body Position Supine Reps/Duration 12' and later 10' Comments Passive with leg on support x 2' PT-OP-T Assessment and Plan Start: 11/12/20 16:40 Freq: Status: Active Protocol: Document 01/01/21 09:02 LRN (Rec: 01/01/21 09:48 LRN [id number]) Physical Therapy Assessment Goals Three Impairment Pt requires use of assist device (SPC) for pt to feel safe with stance/gait Short Term Goal (STG) Pt will be able to get in/out of her car without use of step stool. STG Duration GOAL MET Fdc Goal (LTG) Pt will be able to ambulate safely without use of a SPC. (12/25/20: Uses cane outside just in case). LTG Duration 02/16/21 (12/25/20: Improved) Two Impairment L LE weakness limiting standing ability to 15' Short Term Goal (STG) Increase core & L hip/knee strength to improve standing ability so pt can do household chore of washing dishes and carry laundry basket to laundry room. 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 Can't carry laundry basket to laundry room) STG Duration 01/01/21 (12/25/20: Can stand for dishes, not able to carry laundry basket) Fdc Goal (LTG) Improve core & L LE strength with pt able to hang clothes up on clothes line without pain/weakness while reaching up. LTG Duration 02/16/21 (12/25/20: MET GOAL) One Impairment Pt lacks appropriate self care HEP Short Term Goal (STG) Pt will be educated in hip/low back ROM ex's to improve mobility. (11/27/20: Issued HEP: Supine hip ER/IR and positional Ilipsoas stretch, clamshell/ reverse clamshell AROM) STG Duration 12/05/20 (11/27/20: Progressed) Animal Anatomist Goal (LTG) Pt will be educated in a self care HEP for self management of pain and LB/L hip stability . (11/27/20: Issued HEP: Supine hip ER/IR and positional Ilipsoas stretch, self STMs ball roll at wall and stick rolling) LTG Duration 02/16/21 (11/27/20: Progressed ) Progress Towards Goals Progress Towards Goals Slow Progress - Other Progress Comments Pt in flare up for past few days; therefore progress was slow. Assessment Summary Assessment Pt flared after use of self lumbar traction with legs on stool. She posture presents with L low back disc involvement demonstrating R lateral trunk shift. TA tightening with walking helps to control her pain and improves her gait. Pt posture improved and L groin and lateral pain decreased with manual lumbar traction. Held mechanical traction due to pt body type and her history of cancer. Pt gait improved after therapy treatment. Physical Therapy Plan Frequency and Duration Frequency of Treatment 2x/Week Plan of Care Start Date 11/18/20 Plan of Care End Date 02/16/21 Other Referrals/Consults Referrals/Consults Recommended Recommend pt be assessed for possible lumbar neural involvement. Next Visit Focus/Plan Next Note Type Treatment Note Next Visit Plan Pt to contact MD and discuss treatment for possible L lumbar disc involvement (ie. MRI). Continue breathing training in supine with TA tight. Add: Body mechanics education for low back protection. Stretch L trunk and L lateral trunk glide. ?Teach self assessment/ treatment of SIJ dysfunction Add gentle LB flexibilty ex ( STG#1: Sitting pelvic clock movements, trunk ext, avoiding flexion). Assess hip rot strength and ankle ROM/strength for HEP if needed. Gait training with cane on uneven surface to promote stability with gait outside home. Primary PT POC: L LB & LE rehab for neural/lumbar spine and mechanical dysfunction of L hip (L outflare, R inflare). Check for pelvic obliquity and correct if needed. Monitor response to MFR/STM of abdomen & the pt's progress of being able to hold TA with breathing/cough/heel slides & holding in L sidelie. Slowly progress very gentle LB extension (Jeyson ext program). As needed, STM to L Pirformis, IT Band & Quads. Assess UE DTRS,change in standing posture/pain without shoes. Modalities limited to MH & ice due to CA history.
--- NOTE | 2021-01-08 09:02 | PT.OTN ---
Current Diagnoses Sciatica, left side (01/08/21) Muscle weakness (generalized) (01/08/21) Other abnormalities of gait and mobility (01/08/21) Physical Therapy Treatment Note PT-OP-A Visit Information Start: 11/12/20 16:40 Freq: Status: Active Protocol: Document 01/08/21 08:21 SP (Rec: 01/08/21 11:42 SP [id number]) Out-Patient Physical Therapy Visit Information Visit Information Visit Type Treatment Note Visit Start Time 08:21 Visit Stop Time 09:02 Total Visit Minutes 41 Visit Number 15 Number of BEDSPREAD CUTTER HAND Visits 1 Evaluation Information Evaluation Date 11/18/20 Precautions Precautions Surgical TAPE ALLERGY, Breast [place] [id number]; 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 Recent bowel prolapse. PT-OP-B Current Condition Start: 11/12/20 16:40 Freq: Status: Active Protocol: Document 11/18/20 09:04 LRN (Rec: 11/18/20 09:55 LRN [id number]) Current Condition History of Current Condition Onset Date 08/2020 Current Complaints Ache pressure pain in L LB > lateral thigh to knee & groin> knee. Heavy leg. History of Current Condition Chiropractor has been working on her back and other areas to maintain her health 3x/week for various different issues and was getting ready to decrease to 1x/week when the Sciatica pain started. Was visiting daughter in [place] when pain exacerbated. She thinks because she was sitting on very soft couches and ambulating stairs. She was given Prednisone that was helpful and allowed her to return in a car back to [place]. Ended dosage of Prednisone 1 week after [place] (October 03). She has been using Tylenol 2000mg/day spread out during the day (AM/ PM), primarily important to help her sleep at night. She denies pain with sitting or sleeping, but notes a constant ache is present in sitting. She has pressure pain with walking and has fear of falling due to weakness of the R leg. Has had sciatic before and is same leg but the pain is different. Can bend over and touch the floor without difficulty. Lives with daughter who works at home. Prior Treatments and Tests Seeing Chiropractor (YOLI Nye) 3x/week now and had received acupuncture weekly. Denies x-rays or MRI. Future Testing and Treatments Planned MRI if not improved. Developmental History Developmental History Insidious onset. Treatment Goals Patient/Caregiver Goals Pt goal is to relieve pain and strengthen L leg to feel safer with walking. Prior Functional Status Baseline Function- ADL's Independent Baseline Function- Mobility Independent Baseline Function- Gait Ambulated without assist. 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 Laptop is heaviest thing she can lift. Functional Limitations- Mobility/Gait Walks with a SPC outside, held on R side, and must wear shoes to have less pain. Drives self but needs step stool to get in/out of car. Personal Factors Other Personal Factors That May Effect Seeing chiropractor 3x/weeks, Therapy/Recovery holding off on acupuncture. PT-OP-C Subjective Start: 11/12/20 16:40 Freq: Status: Active Protocol: Document 01/08/21 08:21 SP (Rec: 01/08/21 11:42 SP [id number]) OP-PT Subjective Patient Comments Patient Comments Pt stated the trunk extension and lateral trunk shift is helping alot, feeling straighter longer during the day and perform 1-2 x/day. Is still getting bouts of weakness in L knee and pain in R LS and glut but STMs ball at wall helping alot. a good hurt. Pt state had blood work done for Dr dunbar next 01/14 to also discussed. PT-OP-G Mobility & Gait Start: 11/12/20 16:40 Freq: Status: Active Protocol: Document 12/09/20 09:48 LRN (Rec: 12/09/20 10:34 LRN [id number]) OP Gait Assessment Gait Gait Assistance Required: Independent Able to Maintain Weight Bearing Status Yes During Gait Assistive Devices Assistive Device None Comments Gait Comments Gait - with normal gait mechanics: 20'/12 secs = 1.66 ft/sec Gait - fast: 20/8 secs = 2.5 ft/sec. Preferred speed for 70's: 2. 79 ft/sec. PT-OP-J Posture/Palpation/Skin Start: 05/19/21 16:40 Freq: Status: Active Protocol: Document 11/18/20 09:04 LRN (Rec: 11/18/20 09:55 LRN [id number]) Posture Evaluation Position Standing Head/C-Spine Posture Forward Head L-Spine Posture Shifted Right Shoulder Posture (L) Elevated Pelvis Posture (L) ASIS Posterior,(R) ASIS Inferior Hip Posture (L) Flexed,(R) Flexed,(L) Abducted Knee Posture (L) Excess Flexion Comments Posture Comments L Breast low, hips flexed 26 deg's, Shoes on due to increase pain in L LE without. PT-OP-K Range of Motion Start: 11/12/20 16:40 Freq: Status: Active Protocol: Document 11/20/20 08:15 LRN (Rec: 11/20/20 09:20 LRN [id number]) Hip Goniometric Range of Motion Hip Right Passive Hip ROM WFL No Testing Position Supine Flexion w/Knee Flexed 109 Internal Rotation 20 External Rotation 75 Left Passive Hip ROM WFL No Testing Position Supine Flexion w/Knee Flexed 109 Internal Rotation 20 External Rotation 40 PT-OP-M Strength Start: 11/12/20 16:40 Freq: Status: Active Protocol: Document 11/18/20 09:04 LRN (Rec: 11/18/20 09:55 LRN [id number]) Hip Strength Hip Manual Muscle Testing Right Flexion (L2) 3 Fair Abduction 2 Poor Adduction 2+ Poor+ Left Flexion (L2) 3 Fair Abduction 2- Poor- Adduction 2 Poor Knee Strength Knee Manual Muscle Testing Right Flexion (S2) 5 Normal Extension (L3) 5 Normal Left Flexion (S2) 4- Good- Extension (L3) 5 Normal PT-OP-Q Treatments Start: 11/12/20 16:40 Freq: Status: Active Protocol: Document 01/08/21 08:21 SP (Rec: 01/08/21 11:42 SP [id number]) Therapeutic Exercises Supine Exercises Piriformis stretch Supine Exercise Name Piriformis stretch (L initial just rest on opp knee before added stretch) Side bilateral Reps/Minutes 30 x2 Comments good feedback stretch Hip ER Supine Exercise Name Stretch: AROM & PROM, on MH Side bilateral Reps/Minutes 30 Sidelying Exercises Stretch into R SB Reps/Minutes 3' Standing Exercises Lateral trunk shift Standing Exercise Name R shoulder on wall to correct a R lateral trunk shift Side right Reps/Minutes 2' x 2 standing extension Standing Exercise Name Standing trunk extension Side bilateral Reps/Minutes 4' Comments both UE at lumbar gentle spinal extension self STMs Standing Exercise Name racgabotball roll paraspinals/ glut at wall Side left Reps/Minutes 2 min total Comments good feedback response sore but no painful- feel it helps Gait Training Gait Activity Walking with TA Description TA tightening with gait Surface Level Treatment Focus Proper weight shift of trunk over L hip and decrease of R trunk SB. Comments Physical and verbal cuing needed for ribcage lift Manual Therapy Treatment Soft Tissue Mobilization STMs Body Location L adductor Mobilization Type Cross-Friction,Strumming, Trigger Point Release Intensity/Depth Moderate Body Position Hooklying Comments good adductor releases, less tight Manual Traction Lumbar traction Details Lumbar traction Body Position Supine Comments Passive long leg distraction ' Self-Care/Home Management Treatment Education Patient Education Body Mechanics,Home Exercise Program Other Education Time spent body mechanics doing laundry and loadigng/ unloading strategic sourcing manager hip hinge and LE assist not LB stressed with good understanding. She takes clothes in/out and hand up over head but daughter carries the baskets. PT-OP-T Assessment and Plan Start: 11/12/20 16:40 Freq: Status: Active Protocol: Document 01/08/21 08:21 SP (Rec: 01/08/21 11:42 SP [id number]) Physical Therapy Assessment Goals Three Impairment Pt requires use of assist device (SPC) for pt to feel safe with stance/gait Short Term Goal (STG) Pt will be able to get in/out of her car without use of step stool. STG Duration GOAL MET Casting And Locker Room Servicer Goal (LTG) Pt will be able to ambulate safely without use of a SPC. (12/25/20: Uses cane outside just in case). LTG Duration 02/16/21 (12/25/20: Improved) Two Impairment L LE weakness limiting standing ability to 15' Short Term Goal (STG) Increase core & L hip/knee strength to improve standing ability so pt can do household chore of washing dishes and carry laundry basket to laundry room. (12/18/20: Can unload strategic sourcing manager and washing pots/ pans, hasn't tried carrying weight--15 min limit. Can't carry laundry basket to laundry room) STG Duration 01/01/21 (12/25/20: Can stand for dishes, not able to carry laundry basket) Casting And Locker Room Servicer Goal (LTG) Improve core & L LE strength with pt able to hang clothes up on clothes line without pain/weakness while reaching up. LTG Duration 02/16/21 (12/25/20: MET GOAL) One Impairment Pt lacks appropriate self care HEP Short Term Goal (STG) Pt will be educated in hip/low back ROM ex's to improve mobility. (11/27/20: Issued HEP: Supine hip ER/IR and positional Ilipsoas stretch, clamshell/ reverse clamshell AROM) STG Duration 12/05/20 (11/27/20: Progressed) Casting And Locker Room Servicer Goal (LTG) Pt will be educated in a self care HEP for self management of pain and LB/L hip stability . (11/27/20: Issued HEP: Supine hip ER/IR and positional Ilipsoas stretch, self STMs ball roll at wall and stick rolling) LTG Duration 02/16/21 (11/27/20: Progressed ) Assessment Summary Assessment Tx focused on trunk alignment ex and carryover to ADLs of laundry and dishes with good form and states tries to perform this way at home. Provided instruction on self STMs ball at wall for self release of glut med, pirformis and paraspinals with good feekback results. Physical Therapy Plan Frequency and Duration Frequency of Treatment 2x/Week Plan of Care Start Date 11/18/20 Plan of Care End Date 02/16/21 Therapeutic Interventions Therapeutic Interventions Gait Training,Home Exercise Program,Manual Therapy, Neuromuscular Re-education, Patient/Caregiver Education, Self-Care/Home Management,Soft Tissue Mobilization, Therapeutic Activities, Therapeutic Exercises Modalities Cold Pack/Ice Massage,Hot Packs Other Referrals/Consults Referrals/Consults Recommended Recommend pt be assessed for possible lumbar neural involvement- MRI scheduled for 01/14/21. Next Visit Focus/Plan Next Note Type Treatment Note Next Visit Plan MRI scheduled for 01/14/21 when contact MD and discuss treatment for possible L lumbar disc involvement (ie. MRI). Continue breathing training in supine with TA tight. POC: Stretch L trunk and L lateral trunk glide. ?Teach self assessment/ treatment of SIJ dysfunction Add gentle LB flexibilty ex ( STG#1: Sitting pelvic clock movements, trunk ext, avoiding flexion). Assess hip rot strength and ankle ROM/strength for HEP if needed. Gait training with cane on uneven surface to promote stability with gait outside home. Primary PT POC: L LB & LE rehab for neural/lumbar spine and mechanical dysfunction of L hip (L outflare, R inflare). Check for pelvic obliquity and correct if needed. Monitor response to MFR/STM of abdomen & the pt's progress of being able to hold TA with breathing/cough/heel slides & holding in L sidelie. Slowly progress very gentle LB extension (Jeyson ext program). As needed, STM to L Pirformis, IT Band & Quads. Assess UE DTRS,change in standing posture/pain without shoes. Modalities limited to MH & ice due to CA history.
--- NOTE | 2021-01-13 13:02 | PT.OTN ---
Current Diagnoses Sciatica, left side (01/13/21) Muscle weakness (generalized) (01/13/21) Other abnormalities of gait and mobility (01/13/21) Physical Therapy Treatment Note PT-OP-A Visit Information Start: 11/12/20 16:40 Freq: Status: Active Protocol: Document 01/13/21 12:18 SP (Rec: 01/13/21 13:50 SP [id number]) Out-Patient Physical Therapy Visit Information Visit Information Visit Type Treatment Note Visit Start Time 12:18 Visit Stop Time 13:02 Total Visit Minutes 44 Visit Number 16 Number of BRAZING MACHINE TENDER Visits 2 Evaluation Information Evaluation Date 11/18/20 Precautions Precautions Surgical TAPE ALLERGY, Breast [place] [id number]; 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 Recent bowel prolapse. PT-OP-B Current Condition Start: 11/12/20 16:40 Freq: Status: Active Protocol: Document 11/18/20 09:04 LRN (Rec: 11/18/20 09:55 LRN [id number]) Current Condition History of Current Condition Onset Date 08/2020 Current Complaints Ache pressure pain in L LB > lateral thigh to knee & groin> knee. Heavy leg. History of Current Condition Chiropractor has been working on her back and other areas to maintain her health 3x/week for various different issues and was getting ready to decrease to 1x/week when the Sciatica pain started. Was visiting daughter in [place] when pain exacerbated. She thinks because she was sitting on very soft couches and ambulating stairs. She was given Prednisone that was helpful and allowed her to return in a car back to [place]. Ended dosage of Prednisone 1 week after [place] (October 03). She has been using Tylenol 2000mg/day spread out during the day (AM/ PM), primarily important to help her sleep at night. She denies pain with sitting or sleeping, but notes a constant ache is present in sitting. She has pressure pain with walking and has fear of falling due to weakness of the R leg. Has had sciatic before and is same leg but the pain is different. Can bend over and touch the floor without difficulty. Lives with daughter who works at home. Prior Treatments and Tests Seeing Chiropractor (YOLI Nye) 3x/week now and had received acupuncture weekly. Denies x-rays or MRI. Future Testing and Treatments Planned MRI if not improved. Developmental History Developmental History Insidious onset. Treatment Goals Patient/Caregiver Goals Pt goal is to relieve pain and strengthen L leg to feel safer with walking. Prior Functional Status Baseline Function- ADL's Independent Baseline Function- Mobility Independent Baseline Function- Gait Ambulated without assist. 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 Laptop is heaviest thing she can lift. Functional Limitations- Mobility/Gait Walks with a SPC outside, held on R side, and must wear shoes to have less pain. Drives self but needs step stool to get in/out of car. Personal Factors Other Personal Factors That May Effect Seeing chiropractor 3x/weeks, Therapy/Recovery holding off on acupuncture. PT-OP-C Subjective Start: 11/12/20 16:40 Freq: Status: Active Protocol: Document 01/13/21 12:18 SP (Rec: 01/13/21 13:50 SP [id number]) OP-PT Subjective Patient Comments Patient Comments Pt stated doing so much better , walking straighter with better posture and feeling less L k nee feeling on wants to collapse so getting stronger too. Patient Reported Progress Improving PT-OP-G Mobility & Gait Start: 11/12/20 16:40 Freq: Status: Active Protocol: Document 12/09/20 09:48 LRN (Rec: 12/09/20 10:34 LRN [id number]) OP Gait Assessment Gait Gait Assistance Required: Independent Able to Maintain Weight Bearing Status Yes During Gait Assistive Devices Assistive Device None Comments Gait Comments Gait - with normal gait mechanics: 20'/12 secs = 1.66 ft/sec Gait - fast: 20/8 secs = 2.5 ft/sec. Preferred speed for 70's: 2. 79 ft/sec. PT-OP-J Posture/Palpation/Skin Start: 11/12/20 16:40 Freq: Status: Active Protocol: Document 11/18/20 09:04 LRN (Rec: 11/18/20 09:55 LRN [id number]) Posture Evaluation Position Standing Head/C-Spine Posture Forward Head L-Spine Posture Shifted Right Shoulder Posture (L) Elevated Pelvis Posture (L) ASIS Posterior,(R) ASIS Inferior Hip Posture (L) Flexed,(R) Flexed,(L) Abducted Knee Posture (L) Excess Flexion Comments Posture Comments L Breast low, hips flexed 26 deg's, Shoes on due to increase pain in L LE without. PT-OP-K Range of Motion Start: 11/12/20 16:40 Freq: Status: Active Protocol: Document 11/20/20 08:15 LRN (Rec: 11/20/20 09:20 LRN [id number]) Hip Goniometric Range of Motion Hip Right Passive Hip ROM WFL No Testing Position Supine Flexion w/Knee Flexed 109 Internal Rotation 20 External Rotation 75 Left Passive Hip ROM WFL No Testing Position Supine Flexion w/Knee Flexed 109 Internal Rotation 20 External Rotation 40 PT-OP-M Strength Start: 11/12/20 16:40 Freq: Status: Active Protocol: Document 11/18/20 09:04 LRN (Rec: 11/18/20 09:55 LRN [id number]) Hip Strength Hip Manual Muscle Testing Right Flexion (L2) 3 Fair Abduction 2 Poor Adduction 2+ Poor+ Left Flexion (L2) 3 Fair Abduction 2- Poor- Adduction 2 Poor Knee Strength Knee Manual Muscle Testing Right Flexion (S2) 5 Normal Extension (L3) 5 Normal Left Flexion (S2) 4- Good- Extension (L3) 5 Normal PT-OP-Q Treatments Start: 11/12/20 16:40 Freq: Status: Active Protocol: Document 01/13/21 12:18 SP (Rec: 01/13/21 13:50 SP [id number]) Therapeutic Exercises Supine Exercises Iliopsoas stretch Supine Exercise Name Iliopsoas static stretch with pillow under lower leg/ knee straight- revHEP Side left Equipment Used towel behind R knee SKTC position Reps/Minutes 10 sec x3 Comments cues to relax extended leg for stretch improves performance Hip ER Supine Exercise Name Stretch: AROM- reviewed HEP Side bilateral Reps/Minutes 30 x3 Comments R>L tightness, feels releases Prone Exercises LE ext Prone Exercise Name added to HEP Side bilateral Reps/Minutes 2x5 Comments cued core fac and small unweight LE off table, pain free Sitting Exercises trunk flexion Sitting Exercise Name arms dangle between legs Equipment Used seated in 18 chair Reps/Minutes 3x10 sec Comments cued neutral pelvis/ straight back- hip hinge- good feedback stretch Standing Exercises resistance row Side bilateral Reps/Minutes x4 Comments over recruited Low back to DC for now Lateral trunk shift Standing Exercise Name R shoulder on wall to correct a R lateral trunk shift Side right Reps/Minutes 2' x 2 standing extension Standing Exercise Name Standing trunk extension Side bilateral Reps/Minutes 4' Comments both UE at lumbar gentle spinal extension self STMs Standing Exercise Name racquetball roll paraspinals/ glut at wall Side left Equipment Used performing at home- did not do today,just discussed helpful Reps/Minutes 2 min total Comments good feedback response sore but no painful- feel it helps Manual Therapy Treatment Soft Tissue Mobilization STMs Body Location L adductor Mobilization Type Cross-Friction,Strumming, Trigger Point Release,Other Intensity/Depth Moderate Body Position Hooklying Comments good adductor releases, less tight oh that feels alot better Self-Care/Home Management Treatment Education Patient Education Home Exercise Program,Joint Protection Other Education Initiated prone LE ext lift with good feedback, pillow under pelvis support. PT-OP-T Assessment and Plan Start: 11/12/20 16:40 Freq: Status: Active Protocol: Document 01/13/21 12:18 SP (Rec: 01/13/21 13:50 SP [id number]) Physical Therapy Assessment Goals Three Impairment Pt requires use of assist device (SPC) for pt to feel safe with stance/gait Short Term Goal (STG) Pt will be able to get in/out of her car without use of step stool. STG Duration GOAL MET Snf Goal (LTG) Pt will be able to ambulate safely without use of a SPC. (12/25/20: Uses cane outside just in case). LTG Duration 02/16/21 (12/25/20: Improved) Two Impairment L LE weakness limiting standing ability to 15' Short Term Goal (STG) Increase core & L hip/knee strength to improve standing ability so pt can do household chore of washing dishes and carry laundry basket to laundry room. (12/18/20: Can unload brilliandeer looper and washing pots/ pans, hasn't tried carrying weight--15 min limit. Can't carry laundry basket to laundry room) STG Duration 01/01/21 (12/25/20: Can stand for dishes, not able to carry laundry basket) Snf Goal (LTG) Improve core & L LE strength with pt able to hang clothes up on clothes line without pain/weakness while reaching up. LTG Duration 02/16/21 (12/25/20: MET GOAL) One Impairment Pt lacks appropriate self care HEP Short Term Goal (STG) Pt will be educated in hip/low back ROM ex's to improve mobility. (11/27/20: Issued HEP: Supine hip ER/IR and positional Ilipsoas stretch, clamshell/ reverse clamshell AROM) STG Duration 12/05/20 (11/27/20: Progressed) Center Human Resources Manager Goal (LTG) Pt will be educated in a self care HEP for self management of pain and LB/L hip stability . (11/27/20: Issued HEP: Supine hip ER/IR and positional Ilipsoas stretch, self STMs ball roll at wall and stick rolling) LTG Duration 02/16/21 (11/27/20: Progressed ) Assessment Summary Assessment Pt continues to have adductor pain/ alot tension. Improves post manual and review HEP Long leg stretching w/ opposite knee bent and KFO and continue self manual STMs in sitting for success. Initated prone leg lift with no adverse affects. Pt stated feels more aligned in now and thus decreased LBP. Physical Therapy Plan Frequency and Duration Frequency of Treatment 2x/Week Plan of Care Start Date 11/18/20 Plan of Care End Date 02/16/21 Therapeutic Interventions Therapeutic Interventions Gait Training,Home Exercise Program,Manual Therapy, Neuromuscular Re-education, Patient/Caregiver Education, Self-Care/Home Management,Soft Tissue Mobilization, Therapeutic Activities, Therapeutic Exercises Modalities Cold Pack/Ice Massage,Hot Packs Other Referrals/Consults Referrals/Consults Recommended Recommend pt be assessed for possible lumbar neural involvement- MRI scheduled for 01/14/21. Next Visit Focus/Plan Next Note Type Treatment Note Next Visit Plan MRI scheduled for 01/14/21 when contact MD and discuss treatment for possible L lumbar disc involvement (ie. MRI). Assess prone LE ext initiated last tx, and adductor release focus. POC: Teach self assessment/ treatment of SIJ dysfunction Add gentle LB flexibilty ex ( STG#1: Sitting pelvic clock movements, trunk ext, avoiding flexion). Assess hip rot strength and ankle ROM/strength for HEP if needed. Gait training with cane on uneven surface to promote stability with gait outside home. Primary PT POC: L LB & LE rehab for neural/lumbar spine and mechanical dysfunction of L hip (L outflare, R inflare). Check for pelvic obliquity and correct if needed. Monitor response to MFR/STM of abdomen & the pt's progress of being able to hold TA with breathing/cough/heel slides & holding in L sidelie. Slowly progress very gentle LB extension (Jeyson ext program). As needed, STM to L Pirformis, IT Band & Quads. Assess UE DTRS,change in standing posture/pain without shoes. Modalities limited to MH & ice due to CA history.
--- NOTE | 2021-01-15 17:20 | PT.OTN ---
Current Diagnoses Sciatica, left side (01/15/21) Muscle weakness (generalized) (01/15/21) Other abnormalities of gait and mobility (01/15/21) Physical Therapy Treatment Note PT-OP-A Visit Information Start: 11/12/20 16:40 Freq: Status: Active Protocol: Document 01/15/21 09:10 LRN (Rec: 01/15/21 09:55 LRN [id number]) Out-Patient Physical Therapy Visit Information Visit Information Visit Type Treatment Note Visit Note 8th visit after PN Visit Start Time 09:11 Visit Stop Time 09:53 Total Visit Minutes 42 Visit Number 17 Evaluation Information Evaluation Date 11/18/20 Precautions Precautions Surgical TAPE ALLERGY, Breast [place] [id number]; 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 Recent bowel prolapse. PT-OP-B Current Condition Start: 11/12/20 16:40 Freq: Status: Active Protocol: Document 11/18/20 09:04 LRN (Rec: 11/18/20 09:55 LRN [id number]) Current Condition History of Current Condition Onset Date 08/2020 Current Complaints Ache pressure pain in L LB > lateral thigh to knee & groin> knee. Heavy leg. History of Current Condition Chiropractor has been working on her back and other areas to maintain her health 3x/week for various different issues and was getting ready to decrease to 1x/week when the Sciatica pain started. Was visiting daughter in [place] when pain exacerbated. She thinks because she was sitting on very soft couches and ambulating stairs. She was given Prednisone that was helpful and allowed her to return in a car back to [place]. Ended dosage of Prednisone 1 week after [place] (October 03). She has been using Tylenol 2000mg/day spread out during the day (AM/ PM), primarily important to help her sleep at night. She denies pain with sitting or sleeping, but notes a constant ache is present in sitting. She has pressure pain with walking and has fear of falling due to weakness of the R leg. Has had sciatic before and is same leg but the pain is different. Can bend over and touch the floor without difficulty. Lives with daughter who works at home. Prior Treatments and Tests Seeing Chiropractor (YOLI Nye) 3x/week now and had received acupuncture weekly. Denies x-rays or MRI. Future Testing and Treatments Planned MRI if not improved. Developmental History Developmental History Insidious onset. Treatment Goals Patient/Caregiver Goals Pt goal is to relieve pain and strengthen L leg to feel safer with walking. Prior Functional Status Baseline Function- ADL's Independent Baseline Function- Mobility Independent Baseline Function- Gait Ambulated without assist. 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 Laptop is heaviest thing she can lift. Functional Limitations- Mobility/Gait Walks with a SPC outside, held on R side, and must wear shoes to have less pain. Drives self but needs step stool to get in/out of car. Personal Factors Other Personal Factors That May Effect Seeing chiropractor 3x/weeks, Therapy/Recovery holding off on acupuncture. PT-OP-C Subjective Start: 11/12/20 16:40 Freq: Status: Active Protocol: Document 01/15/21 09:10 LRN (Rec: 01/15/21 09:55 LRN [id number]) OP-PT Subjective Patient Comments Patient Comments L leg weakness sometimes just above the knee. Has had some aching today in L leg. Walking much better and feels more balanced than she has in a long time. Not having to use cane for gait. PT-OP-G Mobility & Gait Start: 11/12/20 16:40 Freq: Status: Active Protocol: Document 12/09/20 09:48 LRN (Rec: 12/09/20 10:34 LRN [id number]) OP Gait Assessment Gait Gait Assistance Required: Independent Able to Maintain Weight Bearing Status Yes During Gait Assistive Devices Assistive Device None Comments Gait Comments Gait - with normal gait mechanics: 20'/12 secs = 1.66 ft/sec Gait - fast: 20/8 secs = 2.5 ft/sec. Preferred speed for 70's: 2. 79 ft/sec. PT-OP-J Posture/Palpation/Skin Start: 11/12/20 16:40 Freq: Status: Active Protocol: Document 11/18/20 09:04 LRN (Rec: 11/18/20 09:55 LRN [id number]) Posture Evaluation Position Standing Head/C-Spine Posture Forward Head L-Spine Posture Shifted Right Shoulder Posture (L) Elevated Pelvis Posture (L) ASIS Posterior,(R) ASIS Inferior Hip Posture (L) Flexed,(R) Flexed,(L) Abducted Knee Posture (L) Excess Flexion Comments Posture Comments L Breast low, hips flexed 26 deg's, Shoes on due to increase pain in L LE without. PT-OP-K Range of Motion Start: 11/12/20 16:40 Freq: Status: Active Protocol: Document 11/20/20 08:15 LRN (Rec: 11/20/20 09:20 LRN [id number]) Hip Goniometric Range of Motion Hip Right Passive Hip ROM WFL No Testing Position Supine Flexion w/Knee Flexed 109 Internal Rotation 20 External Rotation 75 Left Passive Hip ROM WFL No Testing Position Supine Flexion w/Knee Flexed 109 Internal Rotation 20 External Rotation 40 PT-OP-M Strength Start: 11/12/20 16:40 Freq: Status: Active Protocol: Document 11/18/20 09:04 LRN (Rec: 11/18/20 09:55 LRN [id number]) Hip Strength Hip Manual Muscle Testing Right Flexion (L2) 3 Fair Abduction 2 Poor Adduction 2+ Poor+ Left Flexion (L2) 3 Fair Abduction 2- Poor- Adduction 2 Poor Knee Strength Knee Manual Muscle Testing Right Flexion (S2) 5 Normal Extension (L3) 5 Normal Left Flexion (S2) 4- Good- Extension (L3) 5 Normal PT-OP-Q Treatments Start: 11/12/20 16:40 Freq: Status: Active Protocol: Document 01/15/21 09:10 LRN (Rec: 01/15/21 09:55 LRN [id number]) Therapeutic Exercises Supine Exercises Isaiah trunk rot Supine Exercise Name Hand/knee push w/proper breathing Side bilateral Reps/Minutes 6' Roll ins and roll outs Supine Exercise Name #2 band, ball Reps/Minutes 3x10 ea Comments to facilitate PF and TA TA tightening Supine Exercise Name TA tightening Reps/Minutes 6' Iliopsoas stretch Supine Exercise Name Iliopsoas static stretch with pillow under lower leg/ knee straight- revHEP Side left Reps/Minutes 10 sec x3 Comments cues to relax extended leg for stretch improves performance Hip IR Supine Exercise Name Stretch: AROM Side right Reps/Minutes 30 x 2 Hip ER Supine Exercise Name Stretch: AROM- reviewed HEP Side left Reps/Minutes 30 x3 Comments R>L tightness, feels releases Sidelying Exercises TA tightening Sidelying Exercise Name TA tightening using breathwork & cough/laugh Side bilateral Reps/Minutes 10 hold, 10x each Comments improved stabilization with cues Standing Exercises Lateral trunk shift Standing Exercise Name R shoulder on wall to correct a R lateral trunk shift Side right Reps/Minutes 2' x 2 Comments Stress in hip and L groin pull standing extension Standing Exercise Name Standing trunk extension Side bilateral Reps/Minutes 4' Comments both UE at lumbar gentle spinal extension Manual Therapy Treatment Manual Traction Lumbar traction Details Lumbar traction Body Position Supine Reps/Duration 5' Self-Care/Home Management Treatment Education Patient Education Home Exercise Program Activities Self-Care/Home Management Activities Issued & reviewed HEP: TA tightening (sup & sidelies), Isaiah trunk rot in sup ( bilateral), Bridge with hip ER /TA/breathing. PT-OP-T Assessment and Plan Start: 11/12/20 16:40 Freq: Status: Active Protocol: Document 01/15/21 09:10 LRN (Rec: 01/15/21 09:55 LRN [id number]) Physical Therapy Assessment Goals Three Impairment Pt requires use of assist device (SPC) for pt to feel safe with stance/gait Short Term Goal (STG) Pt will be able to get in/out of her car without use of step stool. STG Duration GOAL MET Postdoctoral Scientist Goal (LTG) Pt will be able to ambulate safely without use of a SPC. (12/25/20: Uses cane outside just in case). LTG Duration 02/16/21 (01/15/21: Met for inside, level surface) Two Impairment L LE weakness limiting standing ability to 15' Short Term Goal (STG) Increase core & L hip/knee strength to improve standing ability so pt can do household chore of washing dishes and carry laundry basket to laundry room. 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 Can't carry laundry basket to laundry room) STG Duration 01/01/21 (12/25/20: Can stand for dishes, not able to carry laundry basket) Postdoctoral Scientist Goal (LTG) Improve core & L LE strength with pt able to hang clothes up on clothes line without pain/weakness while reaching up. LTG Duration 02/16/21 (12/25/20: MET GOAL) One Impairment Pt lacks appropriate self care HEP Short Term Goal (STG) Pt will be educated in hip/low back ROM ex's to improve mobility. (11/27/20: Issued HEP: Supine hip ER/IR and positional Ilipsoas stretch, clamshell/ reverse clamshell AROM) STG Duration 12/05/20 (11/27/20: Progressed) Postdoctoral Scientist Goal (LTG) Pt will be educated in a self care HEP for self management of pain and LB/L hip stability . (11/27/20: Issued HEP: Supine hip ER/IR and positional Ilipsoas stretch, self STMs ball roll at wall and stick rolling) LTG Duration 02/16/21 (11/27/20: Progressed ) Progress Towards Goals Progress Comments LTG #3 MET for safe gait without cane on level surface. Assessment Summary Assessment Pt tolerated lumbar ext without increased L leg pain or weakness, but with gait after ex she felt tightness of hip AD's. Pt shows variable onset of lumbar shift throughout therapy. Possible deg of L hip limiting mobilty and causing pain. Physical Therapy Plan Frequency and Duration Frequency of Treatment 2x/Week Plan of Care Start Date 11/18/20 Plan of Care End Date 02/16/21 Next Visit Focus/Plan Next Note Type Treatment Note Next Visit Plan Gait training with cane on uneven surface to promote stability with gait outside home. Review results of MRI 01/14/21. Possible need to contact MD and discuss treatment for possible L lumbar disc involvement if LE neuro pain vs degenerative hip. Assess prone LE ext initiated, and focus on adductor release. POC: Add gentle LB flexibilty ex ( STG#1: Sitting pelvic clock movements, trunk ext, avoiding flexion). Assess hip rot strength and ankle ROM/strength for HEP if needed. Primary PT POC: L LB & LE rehab for neural/lumbar spine and mechanical dysfunction of L hip (L outflare, R inflare). Check for pelvic obliquity and correct if needed. Monitor response to MFR/STM of abdomen & the pt's progress of being able to hold TA with breathing/cough/heel slides & holding in L sidelie. Slowly progress very gentle LB extension (Jeyson ext program). As needed, STM to L Pirformis, IT Band & Quads. Assess UE DTRS,change in standing posture/pain without shoes. Modalities limited to MH & ice due to CA history.
--- NOTE | 2021-01-20 17:49 | PT.OTN ---
Current Diagnoses Sciatica, left side (01/20/21) Muscle weakness (generalized) (01/20/21) Other abnormalities of gait and mobility (01/20/21) Physical Therapy Treatment Note PT-OP-A Visit Information Start: 11/12/20 16:40 Freq: Status: Active Protocol: Document 01/20/21 08:15 LRN (Rec: 01/20/21 09:10 LRN [id number]) Out-Patient Physical Therapy Visit Information Visit Information Visit Type Treatment Note Visit Start Time 08:15 Visit Stop Time 09:07 Total Visit Minutes 52 Visit Number 18 Evaluation Information Evaluation Date 11/18/20 Precautions Precautions Surgical TAPE ALLERGY, Breast [place] [id number]; 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 Recent bowel prolapse. PT-OP-B Current Condition Start: 11/12/20 16:40 Freq: Status: Active Protocol: Document 11/18/20 09:04 LRN (Rec: 11/18/20 09:55 LRN [id number]) Current Condition History of Current Condition Onset Date 08/2020 Current Complaints Ache pressure pain in L LB > lateral thigh to knee & groin> knee. Heavy leg. History of Current Condition Chiropractor has been working on her back and other areas to maintain her health 3x/week for various different issues and was getting ready to decrease to 1x/week when the Sciatica pain started. Was visiting daughter in [place] when pain exacerbated. She thinks because she was sitting on very soft couches and ambulating stairs. She was given Prednisone that was helpful and allowed her to return in a car back to [place]. Ended dosage of Prednisone 1 week after Easter (October 03). She has been using Tylenol 2000mg/day spread out during the day (AM/ PM), primarily important to help her sleep at night. She denies pain with sitting or sleeping, but notes a constant ache is present in sitting. She has pressure pain with walking and has fear of falling due to weakness of the R leg. Has had sciatic before and is same leg but the pain is different. Can bend over and touch the floor without difficulty. Lives with daughter who works at home. Prior Treatments and Tests Seeing Chiropractor (YOLI Nye) 3x/week now and had received acupuncture weekly. Denies x-rays or MRI. Future Testing and Treatments Planned MRI if not improved. Developmental History Developmental History Insidious onset. Treatment Goals Patient/Caregiver Goals Pt goal is to relieve pain and strengthen L leg to feel safer with walking. Prior Functional Status Baseline Function- ADL's Independent Baseline Function- Mobility Independent Baseline Function- Gait Ambulated without assist. 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 Laptop is heaviest thing she can lift. Functional Limitations- Mobility/Gait Walks with a SPC outside, held on R side, and must wear shoes to have less pain. Drives self but needs step stool to get in/out of car. Personal Factors Other Personal Factors That May Effect Seeing chiropractor 3x/weeks, Therapy/Recovery holding off on acupuncture. PT-OP-C Subjective Start: 11/12/20 16:40 Freq: Status: Active Protocol: Document 01/20/21 08:15 LRN (Rec: 01/20/21 09:10 LRN [id number]) OP-PT Subjective Patient Comments Patient Comments Doesn't carry laundry basket down garcia. Back to cooking and dishes in lap layer. Fine getting in/out of car. MRI is 02/20/21. Leaving next week for a week. PT-OP-G Mobility & Gait Start: 11/12/20 16:40 Freq: Status: Active Protocol: Document 12/09/20 09:48 LRN (Rec: 12/09/20 10:34 LRN [id number]) OP Gait Assessment Gait Gait Assistance Required: Independent Able to Maintain Weight Bearing Status Yes During Gait Assistive Devices Assistive Device None Comments Gait Comments Gait - with normal gait mechanics: 20'/12 secs = 1.66 ft/sec Gait - fast: 20/8 secs = 2.5 ft/sec. Preferred speed for 70's: 2. 79 ft/sec. PT-OP-J Posture/Palpation/Skin Start: 11/12/20 16:40 Freq: Status: Active Protocol: Document 11/18/20 09:04 LRN (Rec: 11/18/20 09:55 LRN [id number]) Posture Evaluation Position Standing Head/C-Spine Posture Forward Head L-Spine Posture Shifted Right Shoulder Posture (L) Elevated Pelvis Posture (L) ASIS Posterior,(R) ASIS Inferior Hip Posture (L) Flexed,(R) Flexed,(L) Abducted Knee Posture (L) Excess Flexion Comments Posture Comments L Breast low, hips flexed 26 deg's, Shoes on due to increase pain in L LE without. PT-OP-K Range of Motion Start: 11/12/20 16:40 Freq: Status: Active Protocol: Document 11/20/20 08:15 LRN (Rec: 11/20/20 09:20 LRN [id number]) Hip Goniometric Range of Motion Hip Right Passive Hip ROM WFL No Testing Position Supine Flexion w/Knee Flexed 109 Internal Rotation 20 External Rotation 75 Left Passive Hip ROM WFL No Testing Position Supine Flexion w/Knee Flexed 109 Internal Rotation 20 External Rotation 40 PT-OP-M Strength Start: 11/12/20 16:40 Freq: Status: Active Protocol: Document 11/18/20 09:04 LRN (Rec: 11/18/20 09:55 LRN [id number]) Hip Strength Hip Manual Muscle Testing Right Flexion (L2) 3 Fair Abduction 2 Poor Adduction 2+ Poor+ Left Flexion (L2) 3 Fair Abduction 2- Poor- Adduction 2 Poor Knee Strength Knee Manual Muscle Testing Right Flexion (S2) 5 Normal Extension (L3) 5 Normal Left Flexion (S2) 4- Good- Extension (L3) 5 Normal PT-OP-Q Treatments Start: 11/12/20 16:40 Freq: Status: Active Protocol: Document 01/20/21 08:15 LRN (Rec: 01/20/21 17:41 LRN [id number]) Therapeutic Exercises Supine Exercises Iliopsoas stretch Supine Exercise Name Iliopsoas static stretch with pillow under lower leg/ knee straight- revHEP Side left Reps/Minutes 10 sec x2 Comments Attempted with leg off table, pt not tolerated Piriformis stretch Supine Exercise Name Piriformis stretch Side left Reps/Minutes 3' Comments Unable to achieve positioning to avoid groin pain Lateral Hip stretch Supine Exercise Name Lateral Hip stretch Side left Reps/Minutes 8' Comments Attempted many various positions of LLE to avoid groin pain Prone Exercises LE ext Prone Exercise Name Hip Ext (HEP) Side bilateral Reps/Minutes 2 x 5 Comments Cued to stabilize core. Stopped when pt felt tingling in LLE Gait Training Gait Activity Gait w/mirror assist Description Gait for normal wgt shift onto LLE Device Used None Surface Level Treatment Focus Proper wgt shift onto LLE and proper standing posture Comments Pt able to full WB on LLE without leg feeling weak. Improved gait posture with increased perceived WBing in LLE. Manual Therapy Treatment Soft Tissue Mobilization L Iliopsoas Body Location L Iliopsoas Mobilization Type Sustained Pressure Intensity/Depth Moderate Body Position Supine Comments LLE leg position varied from neutral to bent knee. L Glut Med & Glut Max Body Location L Glut Med & Glut Max Mobilization Type Strumming,Trigger Point Release Intensity/Depth Moderate Body Position Sidelying STMs Body Location L adductor Mobilization Type Trigger Point Release Intensity/Depth Moderate Body Position Hooklying Comments Varied throught treatment the position of LLE sometimes on pillow and sometimes without pillow underneath. Joint Mobilizations Sacrum L side Joint L SIJ Direction PA of L lateral side of sacrum Body Position Sidelying Reps/Duration 3' Comments PA Oscillation PT-OP-T Assessment and Plan Start: 11/12/20 16:40 Freq: Status: Active Protocol: Document 01/20/21 08:15 LRN (Rec: 01/20/21 09:10 LRN [id number]) Physical Therapy Assessment Goals Three Impairment Pt requires use of assist device (SPC) for pt to feel safe with stance/gait Short Term Goal (STG) Pt will be able to get in/out of her car without use of step stool. STG Duration GOAL MET Prison Goal (LTG) Pt will be able to ambulate safely without use of a SPC. (12/25/20: Uses cane outside just in case). LTG Duration 02/16/21 (01/15/21: Met for inside, level surface) Two Impairment L LE weakness limiting standing ability to 15' Short Term Goal (STG) Increase core & L hip/knee strength to improve standing ability so pt can do household chore of washing dishes and carry laundry basket to laundry room. (12/18/20: Can unload lap layer and washing pots/ pans, hasn't tried carrying weight--15 min limit. Can't carry laundry basket to laundry room) STG Duration 01/01/21 (12/25/20: Can stand for dishes, not able to carry laundry basket) Occupational Health Specialist Goal (LTG) Improve core & L LE strength with pt able to hang clothes up on clothes line without pain/weakness while reaching up. LTG Duration 02/16/21 (12/25/20: MET GOAL) One Impairment Pt lacks appropriate self care HEP Short Term Goal (STG) Pt will be educated in hip/low back ROM ex's to improve mobility. (11/27/20: Issued HEP: Supine hip ER/IR and positional Ilipsoas stretch, clamshell/ reverse clamshell AROM) STG Duration 12/05/20 (11/27/20: Progressed) Occupational Health Specialist Goal (LTG) Pt will be educated in a self care HEP for self management of pain and LB/L hip stability . (11/27/20: Issued HEP: Supine hip ER/IR and positional Ilipsoas stretch, self STMs ball roll at wall and stick rolling) LTG Duration 02/16/21 (11/27/20: Progressed ) Assessment Summary Assessment Much improved WBing in LLE after gait training and pt feeling stronger in LLE stance . She showed improved posture with standing and with gait. At end of therapy LLE pain decreased and centered in LSIJ . Pt to work on standing posture, gait and support to L SIJ in sitting. Pt had low tolerance to prone L hip ext and she demonstrates poor core control with visible rotation of core to same side of leg lifting. Core is weak. Physical Therapy Plan Frequency and Duration Frequency of Treatment 2x/Week Plan of Care Start Date 11/18/20 Plan of Care End Date 02/16/21 Next Visit Focus/Plan Next Note Type Treatment Note Next Visit Plan Recheck Gait training without or with cane on even surface, then progress to uneven surface to promote stability with gait outside home. Review LB mobility ex's for HEP (STG #1) Review results of MRI 02/20/21. Possible need to contact MD and discuss treatment for possible L lumbar disc involvement if LE neuro pain vs degenerative hip. On pt return from trip next week, Focus on adductor release, core strengthening, normalizing gait on level and uneven surface. POC: Add gentle LB flexibilty ex ( STG#1: Sitting pelvic clock movements, trunk ext, avoiding flexion). Assess hip rot strength and ankle ROM/strength for HEP if needed. Primary PT POC: L LB & LE rehab for neural/lumbar spine and mechanical dysfunction of L hip (L outflare, R inflare). Check for pelvic obliquity and correct if needed. Monitor response to MFR/STM of abdomen & the pt's progress of being able to hold TA with breathing/cough/heel slides & holding in L sidelie. Slowly progress very gentle LB extension (Jeyson ext program). As needed, STM to L Pirformis, IT Band & Quads. Assess UE DTRS,change in standing posture/pain without shoes. Modalities limited to MH & ice due to CA history.
--- NOTE | 2021-02-03 13:10 | PT.OTN ---
Current Diagnoses Sciatica, left side (02/03/21) Muscle weakness (generalized) (02/03/21) Other abnormalities of gait and mobility (02/03/21) Physical Therapy Treatment Note PT-OP-A Visit Information Start: 11/12/20 16:40 Freq: Status: Active Protocol: Document 02/03/21 09:04 LRN (Rec: 02/03/21 10:13 LRN [id number]) Out-Patient Physical Therapy Visit Information Visit Information Visit Type Progress Note Visit Note 10th visit after PN Pt walking into therapy without cane. Visit Start Time 09:04 Visit Stop Time 09:44 Total Visit Minutes 40 Visit Number 19 Evaluation Information Evaluation Date 11/18/20 Precautions Precautions Surgical TAPE ALLERGY, Breast [place] [id number]; 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 Recent bowel prolapse. PT-OP-B Current Condition Start: 11/12/20 16:40 Freq: Status: Active Protocol: Document 11/18/20 09:04 LRN (Rec: 11/18/20 09:55 LRN [id number]) Current Condition History of Current Condition Onset Date 08/2020 Current Complaints Ache pressure pain in L LB > lateral thigh to knee & groin> knee. Heavy leg. History of Current Condition Chiropractor has been working on her back and other areas to maintain her health 3x/week for various different issues and was getting ready to decrease to 1x/week when the Sciatica pain started. Was visiting daughter in [place] when pain exacerbated. She thinks because she was sitting on very soft couches and ambulating stairs. She was given Prednisone that was helpful and allowed her to return in a car back to [place]. Ended dosage of Prednisone 1 week after Easter (October 03). She has been using Tylenol 2000mg/day spread out during the day (AM/ PM), primarily important to help her sleep at night. She denies pain with sitting or sleeping, but notes a constant ache is present in sitting. She has pressure pain with walking and has fear of falling due to weakness of the R leg. Has had sciatic before and is same leg but the pain is different. Can bend over and touch the floor without difficulty. Lives with daughter who works at home. Prior Treatments and Tests Seeing Chiropractor (YOLI Nye) 3x/week now and had received acupuncture weekly. Denies x-rays or MRI. Future Testing and Treatments Planned MRI if not improved. Developmental History Developmental History Insidious onset. Treatment Goals Patient/Caregiver Goals Pt goal is to relieve pain and strengthen L leg to feel safer with walking. Prior Functional Status Baseline Function- ADL's Independent Baseline Function- Mobility Independent Baseline Function- Gait Ambulated without assist. 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 Laptop is heaviest thing she can lift. Functional Limitations- Mobility/Gait Walks with a SPC outside, held on R side, and must wear shoes to have less pain. Drives self but needs step stool to get in/out of car. Personal Factors Other Personal Factors That May Effect Seeing chiropractor 3x/weeks, Therapy/Recovery holding off on acupuncture. PT-OP-C Subjective Start: 11/12/20 16:40 Freq: Status: Active Protocol: Document 02/03/21 09:04 LRN (Rec: 02/03/21 10:13 LRN [id number]) OP-PT Subjective Patient Comments Patient Comments MRI planned 02/20/21. On trip had problem standing and walking sometimes long and short distances. Had stress feeling across low back and on L hip and above L knee. Wasn 't impaired functionally. Slept well, mornings good, driving in car (all day) was great. Almost back to the way she was before leaving on her trip. Can't do things for > 15' before needing to sit due to stress across the back not sciatica. [place] safe walking cane in all different types of terrain. Climbed stairs without difficulty using railing. PT-OP-G Mobility & Gait Start: 11/12/20 16:40 Freq: Status: Active Protocol: Document 12/09/20 09:48 LRN (Rec: 12/09/20 10:34 LRN [id number]) OP Gait Assessment Gait Gait Assistance Required: Independent Able to Maintain Weight Bearing Status Yes During Gait Assistive Devices Assistive Device None Comments Gait Comments Gait - with normal gait mechanics: 20'/12 secs = 1.66 ft/sec Gait - fast: 20/8 secs = 2.5 ft/sec. Preferred speed for 70's: 2. 79 ft/sec. PT-OP-J Posture/Palpation/Skin Start: 11/12/20 16:40 Freq: Status: Active Protocol: Document 11/18/20 09:04 LRN (Rec: 11/18/20 09:55 LRN [id number]) Posture Evaluation Position Standing Head/C-Spine Posture Forward Head L-Spine Posture Shifted Right Shoulder Posture (L) Elevated Pelvis Posture (L) ASIS Posterior,(R) ASIS Inferior Hip Posture (L) Flexed,(R) Flexed,(L) Abducted Knee Posture (L) Excess Flexion Comments Posture Comments L Breast low, hips flexed 26 deg's, Shoes on due to increase pain in L LE without. PT-OP-K Range of Motion Start: 11/12/20 16:40 Freq: Status: Active Protocol: Document 11/20/20 08:15 LRN (Rec: 11/20/20 09:20 LRN [id number]) Hip Goniometric Range of Motion Hip Right Passive Hip ROM WFL No Testing Position Supine Flexion w/Knee Flexed 109 Internal Rotation 20 External Rotation 75 Left Passive Hip ROM WFL No Testing Position Supine Flexion w/Knee Flexed 109 Internal Rotation 20 External Rotation 40 PT-OP-M Strength Start: 11/12/20 16:40 Freq: Status: Active Protocol: Document 11/18/20 09:04 LRN (Rec: 11/18/20 09:55 LRN [id number]) Hip Strength Hip Manual Muscle Testing Right Flexion (L2) 3 Fair Abduction 2 Poor Adduction 2+ Poor+ Left Flexion (L2) 3 Fair Abduction 2- Poor- Adduction 2 Poor Knee Strength Knee Manual Muscle Testing Right Flexion (S2) 5 Normal Extension (L3) 5 Normal Left Flexion (S2) 4- Good- Extension (L3) 5 Normal PT-OP-Q Treatments Start: 11/12/20 16:40 Freq: Status: Active Protocol: Document 02/03/21 09:04 LRN (Rec: 02/03/21 10:13 LRN [id number]) Therapeutic Exercises Supine Exercises Core brace w/bridge Supine Exercise Name Core brace in neutral w/ tolerated bridge Reps/Minutes 15x 2 Comments Pt needed cuing to keep spine neutral (minimal lift done) Isaiah trunk rot Supine Exercise Name Hand/knee push w/proper breathing Side bilateral Reps/Minutes 6' Roll ins and roll outs Supine Exercise Name #2 band, ball Reps/Minutes 2' Comments to facilitate PF and TA, phys & v cuing needed TA tightening Supine Exercise Name TA tightening Reps/Minutes 4' Iliopsoas stretch Supine Exercise Name Iliopsoas static stretch with pillow under lower leg/ knee straight- revHEP Side left Reps/Minutes 60 sec x2 Comments Attempted with leg off table, pt not tolerated Piriformis stretch Supine Exercise Name Piriformis stretch Side left Reps/Minutes 3' Comments Unable to achieve positioning to avoid groin pain Lateral Hip stretch Supine Exercise Name Lateral Hip stretch, with ankle resting on opposite knee Side left Reps/Minutes 6' Comments Attempted many various positions of LLE to avoid groin pain Sidelying Exercises reverse clamshell Sidelying Exercise Name Hip IR Side right Resistance AROM Equipment Used pillow between knees Reps/Minutes 1x10 Comments no pain if mvmt limited-cued trunk still clamshell Sidelying Exercise Name Clamshell Side left Resistance AROM Equipment Used pillow between knees Reps/Minutes 1x10 Comments including TA contraction Standing Exercises Trunk rot Standing Exercise Name Active trunk rot against wall Side bilateral Reps/Minutes 4' Comments L rot caused L groin stain and at rest tingling. standing extension Standing Exercise Name Standing trunk extension against wall Reps/Minutes 4' Comments Cuing for gentle spinal extension, pusing into wall Self-Care/Home Management Treatment Education Patient Education Home Exercise Program Activities Self-Care/Home Management Activities Issued and reviewed HEP: Supine active trunk ext and Bridge with L/S in neutral brace. PT-OP-T Assessment and Plan Start: 11/12/20 16:40 Freq: Status: Active Protocol: Document 02/03/21 09:04 LRN (Rec: 02/03/21 10:13 LRN [id number]) Physical Therapy Assessment Rehab Potential Rehabilitation Potential Good Evaluation Complexity Number of Personal Factors/Comorbidities 1-2 Number of Body Systems Impaired 1-2 Clinical Presentation at Evaluation Stable Impairments Impairments Pain,Strength Goals Three Impairment Pt requires use of assist device (SPC) for pt to feel safe with stance/gait Short Term Goal (STG) Pt will be able to get in/out of her car without use of step stool. STG Duration GOAL MET Group Home Goal (LTG) Pt will be able to ambulate safely without use of a SPC. (12/25/20: Uses cane outside just in case). LTG Duration 05/04/21 (01/15/21: Met for inside, level surface) Two Impairment L LE weakness limiting standing ability to 15' Short Term Goal (STG) Increase core & L hip/knee strength to improve standing ability so pt can do household chore of washing dishes and carry laundry basket to laundry room. (12/18/20: Can unload shanker out and washing pots/ pans, hasn't tried carrying weight--15 min limit. Can't carry laundry basket to laundry room) STG Duration 03/20/21 (12/25/20: Can stand for dishes, not able to carry laundry basket) Upholsterer Outside Goal (LTG) Improve core & L LE strength with pt able to hang clothes up on clothes line without pain/weakness while reaching up. LTG Duration GOAL MET One Impairment Pt lacks appropriate self care HEP Short Term Goal (STG) Pt will be educated in hip/low back ROM ex's to improve mobility. (11/27/20: Issued HEP: Supine hip ER/IR and positional Ilipsoas stretch, clamshell/ reverse clamshell AROM) STG Duration 03/20/21 (11/27/20: Progressed) Upholsterer Outside Goal (LTG) Pt will be educated in a self care HEP for self management of pain and LB/L hip stability . (02/03/21: Issued HEP: Sup: trunk ext & bridge) (11/27/20: Issued HEP: Supine hip ER/IR and positional Ilipsoas stretch, self STMs ball roll at wall and stick rolling) LTG Duration 05/04/21 (11/27/20: Progressed) Progress Towards Goals Progress Comments Progressed HEP of LB stab. Assessment Summary Assessment Pt has returned for her vacation with reports of safety with gait on different terrains using a cane, but not without cane. Pt noted limited with standing of 15'. Overall pt has improved in function. Pt will have MRI and if it shows no degen in L hip, then the pt would benefit from further core/ pelvic stabilization to work to achieve above stated goals. If pt dysfunction due to L hip, then pt would be appropriate for DC to self care core/pelvic stab program. Recommend continuation of therapy until further assessment is completed, in order to progress towards meeting above stated goals that have yet to be met. Physical Therapy Plan Frequency and Duration Frequency of Treatment 2x/Week Plan of Care Start Date 02/03/21 Plan of Care End Date 05/04/21 Therapeutic Interventions Therapeutic Interventions Gait Training,Home Exercise Program,Joint Mobilizations, Manual Therapy,Neuromuscular Re-education,Patient/Caregiver Education,Self-Care/Home Management,Soft Tissue Mobilization,Therapeutic Activities,Therapeutic Exercises Modalities Cold Pack/Ice Massage,Hot Packs Next Visit Focus/Plan Next Note Type Treatment Note Next Visit Plan MRI 02/20/21, pt will cont HEP until after MRI results. Possible need to contact MD and discuss treatment for lumbar neuro vs sciatica. If degen hip, then DC to HEP for further medical management. If lumbar involvement, focus on adductor release, core strengthening, normalizing gait on level and uneven surface. Next: Recheck Gait training without or w/cane on even surface, progress to uneven surface. Review LB mobility ex's for HEP (STG #1) Add gentle LB flexibilty ex ( STG#1: Sitting pelvic clock movements, trunk ext, avoiding flexion). Assess hip rot strength and ankle ROM/strength for HEP if needed. POC: L LB & LE rehab for neural/lumbar spine and mechanical dysfunction of L hip (L outflare, R inflare). Check for pelvic obliquity and correct if needed. Cont to monitor pt's progress of being able to hold TA with breathing/cough/heel slides & holding in L sidelie. Slowly progress very gentle LB extension (Jeyson ext program). As needed, STM to L Pirformis, IT Band & Quads. Assess UE DTRS,change in standing posture/pain without shoes. Modalities limited to MH & ice due to CA history.
--- NOTE | 2021-03-16 08:53 | PT.OPDS ---
Current Diagnoses Sciatica, left side (02/03/21) Muscle weakness (generalized) (02/03/21) Other abnormalities of gait and mobility (02/03/21) Visit Care Team Role Provider Type Maryanne Baker PA-C Attending Provider Non-Staff Family Provider Primary Care Provider Referring Provider Specialty: Medical Address: [address] [place] [address], [id number] Email: Visit Number Visit Number 19 Discharge Summary PT-OP-B Current Condition Start: 11/12/20 16:40 Freq: Status: Active Protocol: Document 11/18/20 09:04 LRN (Rec: 11/18/20 09:55 LRN [id number]) Current Condition History of Current Condition Onset Date 08/2020 Current Complaints Ache pressure pain in L LB > lateral thigh to knee & groin> knee. Heavy leg. History of Current Condition Chiropractor has been working on her back and other areas to maintain her health 3x/week for various different issues and was getting ready to decrease to 1x/week when the Sciatica pain started. Was visiting daughter in [place] when pain exacerbated. She thinks because she was sitting on very soft couches and ambulating stairs. She was given Prednisone that was helpful and allowed her to return in a car back to [place]. Ended dosage of Prednisone 1 week after (October 03). She has been using Tylenol 2000mg/day spread out during the day (AM/ PM), primarily important to help her sleep at night. She denies pain with sitting or sleeping, but notes a constant ache is present in sitting. She has pressure pain with walking and has fear of falling due to weakness of the R leg. Has had sciatic before and is same leg but the pain is different. Can bend over and touch the floor without difficulty. Lives with daughter who works at home. Prior Treatments and Tests Seeing Chiropractor (YOLI Nye) 3x/week now and had received acupuncture weekly. Denies x-rays or MRI. Future Testing and Treatments Planned MRI if not improved. Developmental History Developmental History Insidious onset. Treatment Goals Patient/Caregiver Goals Pt goal is to relieve pain and strengthen L leg to feel safer with walking. Prior Functional Status Baseline Function- ADL's Independent Baseline Function- Mobility Independent Baseline Function- Gait Ambulated without assist. 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 Laptop is heaviest thing she can lift. Functional Limitations- Mobility/Gait Walks with a SPC outside, held on R side, and must wear shoes to have less pain. Drives self but needs step stool to get in/out of car. Personal Factors Other Personal Factors That May Effect Seeing chiropractor 3x/weeks, Therapy/Recovery holding off on acupuncture. PT-OP-C Subjective Start: 11/12/20 16:40 Freq: Status: Active Protocol: Document 02/03/21 09:04 LRN (Rec: 02/03/21 10:13 LRN [id number]) OP-PT Subjective Patient Comments Patient Comments MRI planned 02/20/21. On trip had problem standing and walking sometimes long and short distances. Had stress feeling across low back and on L hip and above L knee. Wasn 't impaired functionally. Slept well, mornings good, driving in car (all day) was great. Almost back to the way she was before leaving on her trip. Can't do things for > 15' before needing to sit due to stress across the back not sciatica. [place] safe walking cane in all different types of terrain. Climbed stairs without difficulty using railing. PT-OP-G Mobility & Gait Start: 11/12/20 16:40 Freq: Status: Active Protocol: Document 12/09/20 09:48 LRN (Rec: 12/09/20 10:34 LRN [id number]) OP Gait Assessment Gait Gait Assistance Required: Independent Able to Maintain Weight Bearing Status Yes During Gait Assistive Devices Assistive Device None Comments Gait Comments Gait - with normal gait mechanics: 20'/12 secs = 1.66 ft/sec Gait - fast: 20/8 secs = 2.5 ft/sec. Preferred speed for 70's: 2. 79 ft/sec. PT-OP-J Posture/Palpation/Skin Start: 11/12/20 16:40 Freq: Status: Active Protocol: Document 11/18/20 09:04 LRN (Rec: 11/18/20 09:55 LRN [id number]) Posture Evaluation Position Standing Head/C-Spine Posture Forward Head L-Spine Posture Shifted Right Shoulder Posture (L) Elevated Pelvis Posture (L) ASIS Posterior,(R) ASIS Inferior Hip Posture (L) Flexed,(R) Flexed,(L) Abducted Knee Posture (L) Excess Flexion Comments Posture Comments L Breast low, hips flexed 26 deg's, Shoes on due to increase pain in L LE without. PT-OP-K Range of Motion Start: 11/12/20 16:40 Freq: Status: Active Protocol: Document 11/20/20 08:15 LRN (Rec: 11/20/20 09:20 LRN [id number]) Hip Goniometric Range of Motion Hip Right Passive Hip ROM WFL No Testing Position Supine Flexion w/Knee Flexed 109 Internal Rotation 20 External Rotation 75 Left Passive Hip ROM WFL No Testing Position Supine Flexion w/Knee Flexed 109 Internal Rotation 20 External Rotation 40 PT-OP-M Strength Start: 11/12/20 16:40 Freq: Status: Active Protocol: Document 11/18/20 09:04 LRN (Rec: 11/18/20 09:55 LRN [id number]) Hip Strength Hip Manual Muscle Testing Right Flexion (L2) 3 Fair Abduction 2 Poor Adduction 2+ Poor+ Left Flexion (L2) 3 Fair Abduction 2- Poor- Adduction 2 Poor Knee Strength Knee Manual Muscle Testing Right Flexion (S2) 5 Normal Extension (L3) 5 Normal Left Flexion (S2) 4- Good- Extension (L3) 5 Normal PT-OP-T Assessment and Plan Start: 11/12/20 16:40 Freq: Status: Active Protocol: Document 03/16/21 08:44 LRN (Rec: 03/16/21 08:53 LRN [id number]) Physical Therapy Assessment Goals Three Impairment Pt requires use of assist device (SPC) for pt to feel safe with stance/gait Short Term Goal (STG) Pt will be able to get in/out of her car without use of step stool. STG Duration GOAL MET Home Care Liaison Goal (LTG) Pt will be able to ambulate safely without use of a SPC. (12/25/20: Uses cane outside just in case). LTG Duration 05/04/21 (01/15/21: Met for inside, level surface) Two Impairment L LE weakness limiting standing ability to 15' Short Term Goal (STG) Increase core & L hip/knee strength to improve standing ability so pt can do household chore of washing dishes and carry laundry basket to laundry room. 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 Can't carry laundry basket to laundry room) STG Duration 03/20/21 (12/25/20: Can stand for dishes, not able to carry laundry basket) Home Care Liaison Goal (LTG) Improve core & L LE strength with pt able to hang clothes up on clothes line without pain/weakness while reaching up. LTG Duration GOAL MET One Impairment Pt lacks appropriate self care HEP Short Term Goal (STG) Pt will be educated in hip/low back ROM ex's to improve mobility. (11/27/20: Issued HEP: Supine hip ER/IR and positional Ilipsoas stretch, clamshell/ reverse clamshell AROM) STG Duration 03/20/21 (11/27/20: Progressed) Home Care Liaison Goal (LTG) Pt will be educated in a self care HEP for self management of pain and LB/L hip stability . (02/03/21: Issued HEP: Sup: trunk ext & bridge) (11/27/20: Issued HEP: Supine hip ER/IR and positional Ilipsoas stretch, self STMs ball roll at wall and stick rolling) LTG Duration 05/04/21 (11/27/20: Progressed) Assessment Summary Assessment Pt called 02/06/21 and advised that she had COVID. Pt was last seen 02/03/21. On her last attended appt she reported safety with gait on different terrains using a cane, but not without cane. Pt was limited with standing of 15'. Overall pt improved in function. Pt was scheduled to have MRI 02/20/21 of L hip. The pt would benefit from further core/pelvic stabilization if there is no degeneration in her L hip, in order to work towards improved mobility & function. Physical Therapy Plan Discharge Physical Therapy Discharge Reasons Change in Medical Status Discharge Comments Pt is being discharged due to onset of COVID illness. Thank you for your referral.
== END 2021-03-16 10:57 | disposition home or self-care (01) ==
LOC: PHYS 09:00
PROVIDERS: Family Provider Physician Assistant; PCP Physician Assistant; Referring Provider Physician Assistant; Visit Provider Physician Assistant
DX: M54.32 Sciatica, left side (principal); M62.81 Muscle weakness (generalized); R26.89 Other abnormalities of gait and mobility
CPT/HCPCS: 97110; 97116; 97140; 97162; 97535

== ENCOUNTER → 2021-02-05 14:04 | Outpatient (CLI) | payer MEDICARE, OTHER, SELFPAY ==
[2021-02-06 10:33] LABS: COVID19 -Nasal RAPID POSITIVE (Negative)
== END ==
PROVIDERS: PCP Physician Assistant; Referring Provider Physician Assistant; Visit Provider Physician Assistant
DX: U07.1 COVID-19 (principal)
CPT/HCPCS: 87635

== ENCOUNTER 2021-02-11 18:47 | Inpatient (IN) | payer MEDICARE, OTHER, SELFPAY ==
[2021-02-11 18:52] VITALS: BP 148/83; PULSE 106; RESP 22; TEMP 36.4; O2SAT 92
[2021-02-11 19:23] VITALS: PULSE 98; RESP 25; O2SAT 89
[2021-02-11 19:30] VITALS: PULSE 101; RESP 27; O2SAT 94
--- NOTE | 2021-02-11 19:31 | DI.RAD.S_ITS ---
PROCEDURE: XR CHEST 1V INDICATIONS: flu-like symptoms TECHNIQUE: One view of the chest was acquired. COMPARISON: [facility], , CHEST 2 VIEW, 12/20/2013, 15:17. FINDINGS: Surgical changes and devices: Surgical clips are seen in right axilla.. Lungs and pleura: Mild pulmonary vascular congestion is seen. Subtle opacity in right mid lung field and bilateral lower lung medrano are seen. No pleural effusions or pneumothorax. Mediastinum: Mediastinal contours appear normal. Heart size is enlarged. Bones and chest wall: No suspicious bony lesions. Overlying soft tissues appear unremarkable. IMPRESSION: Subtle opacities scattered in bilateral lung medrano concerning for developing bilateral multilobar infiltrates. Mild pulmonary vascular congestion. Dictated by: Rom Cage M.D. on 02/11/2021 at 20:26 Approved by: Rom Cage M.D. on 02/11/2021 at 20:26
[2021-02-11 19:43] VITALS: BP 117/74; PULSE 96; RESP 21; O2SAT 93
[2021-02-11 19:52] LABS: Add Manual Diff / Slide Review NO; Basophils Absolute Auto 0 /uL (0-100); Basophils Percent Auto 0.4 % (0-2); Eosinophils Absolute Auto 0 /uL (0-450); Eosinophils Percent Auto 0.1 % (2-4); Hematocrit 43.6 % (36-46); Hemoglobin 15.3 g/dL (12.0-16.0); Lymphocytes Absolute Auto 700 /uL (1100-4500); Lymphocytes Percent Auto 21.1 % (25-40); Mean Corpuscular Hemoglobin 32.3 PG (26-34); Mean Corpuscular Volume 92.3 fL (80-100); Monocytes Absolute Auto 400 /uL (0-900); Monocytes Percent Auto 12.2 % (3-14); Neutrophils Absolute Auto 2300 /uL (1500-7000); Neutrophils Percent Auto 66.2 % (50-75); Platelet Count 165 X10^3/uL (150-400); Red Blood Cell Count 4.73 X10^6/uL (4.0-5.2); Red Cell Distribution Width 12.7 % (11.6-14.8); White Blood Cell Count 3.5 X10^3/uL (4.5-11.0)
[2021-02-11] MEDS: SODIUM CHLORIDE 0.9% 1,000 ML 125 ML IV (19:53)
[2021-02-11 20:01] LABS: HCO3 ABG 27 mmol/L (22-26); PCO2 ABG 37.5 mmHg (35-45); PO2 ABG 81 mmHg (80-100); TCO2 ABG 28 mmol/L (21-31); pH ABG 7.46 (7.35-7.45)
[2021-02-11 20:02] LABS: Fractionated Inspired Oxygen 32; Oxygen Saturation ABG 97 % (95-100)
[2021-02-11 20:07] LABS: Alanine Aminotransferase 24 IU/L (<35); Albumin 3.6 g/dL (3.5-5.0); Albumin Globulin Ratio 1.1 (1.0-2.8); Alkaline Phosphatase 60 U/L (38-126); Aspartate Aminotransferase 47 IU/L (14-36); Bilirubin Total 0.6 mg/dL (0.2-1.3); Blood Urea Nitrogen 12 mg/dL (7-17); Calcium 8.7 mg/dL (8.4-10.2); Carbon Dioxide 27 mmol/L (22-32); Chloride 98 mmol/L (98-107); Creatine Kinase 71 U/L (30-135); D Dimer < 200 ng/mL (<230); Estimated Glomerular Filt Rate > 60.0 mL/min (>60); Globulin 3.2 g/dL (1.7-4.1); Glucose 125 mg/dL (80-110); HEMOLYSIS < 15 (0-50); Potassium 3.3 mmol/L (3.4-5.1); Sodium 132 mmol/L (137-145); Total Protein 6.8 g/dL (6.3-8.2)
[2021-02-11 20:09] LABS: C-Reactive Protein Quant 3.6 mg/dL (<1.0); Lactate Dehydrogenase 719 U/L (313-618)
[2021-02-11 20:16] LABS: NT-proBNP (BNP-Adult 18+) 66 pg/mL (<450)
[2021-02-11 20:20] LABS: Troponin I < 0.012 ng/mL (0.01-0.034)
[2021-02-11 20:24] LABS: Procalcitonin 0.07 ng/mL (<0.5)
[2021-02-11 20:42] LABS: Ferritin 589 ng/mL (11-264)
[2021-02-11 20:58] VITALS: BP 115/75; PULSE 85; RESP 22; O2SAT 96
[2021-02-11 21:07] LABS: Adenovirus Not Detected (Not Detect); B. parapertussis Not Detected (Not Detecte); Bordetella pertussis Not Detected (Not Detecte); Chlamydophila pneumoniae Not Detected (Not Detect); Coronavirus 229E Not Detected (Not Detect); Coronavirus HKU1 Not Detected (Not Detect); Coronavirus NL 63 Not Detected (Not Detect); Coronavirus OC43 Not Detected (Not Detect); Human Metapneumovirus Not Detected (Not Detect); Human Rhinovirus/Enterovirus Not Detected (Not Detect); Influenza A Not Detected (Not Detect); Influenza B Not Detected (Not Detect); Mycoplasma pneumoniae Not Detected (Not Detect); Parainfluenza Virus 1 Not Detected (Not Detect); Parainfluenza Virus 2 Not Detected (Not Detect); Parainfluenza Virus 3 Not Detected (Not Detect); Parainfluenza Virus 4 Not Detected (Not Detect); Respiratory Syncytial Virus Not Detected (Not Detect)
[2021-02-11 21:11] LABS: SARS- CoV-2 Detected (Not Detecte)
--- NOTE | 2021-02-11 21:34 | ED_ITS ---
HPI - General Adult General Chief complaint: Shortness of Breath/Dyspnea Stated complaint: covid positive, progressively worse, zpack taken Time Seen by Provider: 02/11/21 19:16 Source: patient Mode of arrival: Ambulatory History of Present Illness HPI narrative: 75-year-old woman with a distant history of breast cancer currently in remission, sleep apnea with CPAP on atenolol presents with extreme fatigue, mild cough minimal body aches no change to smell or taste, mild headache no vomiting or diarrhea. She is COVID positive and is unvaccinated. Oxygen saturations at rest on room air are 92% and come up to the 96-97% range on 3 L. she does not complain of heart palpitations. Related Data Home Medications Medication Instructions Recorded Confirmed atenolol 50 mg tablet 25 mg PO QDAY #0 01/19/13 01/13/21 melatonin 5 mg tablet 5 mg PO BEDTIME #0 01/19/13 01/13/21 omega 5-vtq-wmx-fish oil 1,000 mg 800 mg PO BID #0 01/19/13 01/13/21 (120 mg-180 mg) capsule (Fish Oil) cholecalciferol (vitamin D3) 50 2,000 unit PO BID 01/02/19 01/13/21 mcg (2,000 unit) capsule (Vitamin D3) Respironics DreamStation CPAP #1 ea 06/05/20 01/13/21 Allergies Allergy/AdvReac Type Severity Reaction Status Date / Time adhesive tape [ADHESIVE TAPE] AdvReac Mild BLISTERS, Verified 01/02/19 13:50 BANDAIDS AND PAPER TAPE OK Review of Systems Review of Systems Narrative: Remainder of complete review of systems is otherwise unremarkable except for that included in the HPI. Patient History Medical History Breast cancer, right breast Chronic left hip pain Hypertension Insomnia, persistent Obesity (BMI 30-39.9) Obstructive sleep apnea Personal history of malignant neoplasm of breast Pneumonia due to COVID-19 virus Rhinitis Surgical History History of appendectomy Social History marital status: details: in March 2018 household members: children (is living with her daughter) lives independently: Yes caregiver/support person: No leisure activities: reading seatbelt use: always do you feel safe at home: Yes Smoking Status: Former smoker substance use type: does not use additional social history: Describes very supportive community; daughters, friends, fellow christian members Smoking Status: Former smoker Exam Narrative Exam Narrative: General: Very fatigued appearing and somewhat pale but Able to give a complete and coherent history. Well-nourished well-developed HEENT: Moist mucous membranes, normal sclera with reactive pupils, Neck: No JVD, supple Respiratory: Lungs with mild scattered wheeze but no rales or rhonchi. Full and symmetrical air movement Cardiac: Tachycardic but otherwise Regular rate and rhythm no murmurs no bruits Abdomen: Soft, nontender, good bowel tones, no flank pain Skin: Warm and dry, no rashes Neurologic: Globally weak but Grossly neurologically intact with no obvious asymmetries or abnormalities Extremities: No trauma, well perfused Psych: Cooperative, appropriate insight and affect Initial Vital Signs Initial Vital Signs: Vital Signs Temperature 97.6 F 02/11/21 18:52 Pulse Rate 106 H 02/11/21 18:52 Respiratory Rate 22 02/11/21 18:52 Blood Pressure 148/83 H 02/11/21 18:52 Pulse Oximetry 92 02/11/21 18:52 Course Orders Ordered: ED Orders 02/11/21 19:30 EKG-12 Lead Stat 02/11/21 19:31 XR chest 1V Stat 02/11/21 19:45 C-Reactive Protein Quant Stat Complete Blood Count AUTO DIFF Stat Comprehensive Metabolic Panel Stat D Dimer Stat Ferritin Stat Lactate (Lactic Acid) Stat Lactate Dehydrogenase Stat NT-proBNP (BNP-Adult 18+) Stat Procalcitonin Stat Troponin & CK Cardiac Panel Stat 02/11/21 19:49 Arterial Blood Gas Stat 02/11/21 20:13 Respiratory Panel (Film Array) Stat 02/11/21 20:41 Blood Culture Stat Sodium Chloride (Normal Saline 0.9%) 1,000 mls @ 125 mls/hr IV CONT YAQUELIN Last Admin: 02/11/21 19:53 Dose: 125 mls/hr Documented by: [place] Discontinued Medications Dexamethasone (Dexamethasone 10 Mg/Ml Vial) 10 mg IV NOW ONE Stop: 02/11/21 21:50 Last Admin: 02/11/21 22:09 Dose: 10 mg Documented by: Remdesivir 200 mg/ Sodium (Chloride) 270 mls @ 270 mls/hr IV NOW ONE Stop: 02/11/21 21:53 Last Admin: 02/11/21 22:09 Dose: 270 mls/hr Documented by: Vital Signs Vital signs: Vital Signs - 8 hr 02/11/21 18:52 02/11/21 19:23 02/11/21 19:30 Temperature 97.6 F Pulse Rate 106 H 98 H 101 H Respiratory Rate 22 25 H 27 H Blood Pressure 148/83 H Pulse Oximetry 92 89 L 94 02/11/21 19:43 02/11/21 20:58 Temperature Pulse Rate 96 H 85 Respiratory Rate 21 22 Blood Pressure 117/74 115/75 Pulse Oximetry 93 96 Medical Decision Making Lab Data Result diagrams: 02/11/21 19:45 02/11/21 19:45 Labs: Lab Results 02/11/21 02/11/21 02/11/21 Range/Units 19:45 19:45 19:45 WBC 3.5 L (4.5-11.0) X10^3/uL RBC 4.73 (4.0-5.2) X10^6/uL Hgb 15.3 (12.0-16.0) g/dL Hct 43.6 (36-46) % MCV 92.3 (80-100) fL MCH 32.3 (26-34) PG MCHC 35.0 (30-36) % RDW 12.7 (11.6-14.8) % Plt Count 165 (150-400) X10^3/uL Neut % (Auto) 66.2 (50-75) % Lymph % (Auto) 21.1 L (25-40) % [place] % (Auto) 12.2 (3-14) % Eos % (Auto) 0.1 L (2-4) % Baso % (Auto) 0.4 (0-2) % Neut # (Auto) 2300 (9337-7285) /uL Lymph # (Auto) 700 L (3665-7818) /uL [place] # (Auto) 400 (0-900) /uL Eos # (Auto) 0 (0-450) /uL Baso # (Auto) 0 (0-100) /uL D-Dimer < 200 (<230) ng/mL ABG pH (7.35-7.45) ABG pCO2 (35-45) mmHg ABG pO2 (80-100) mmHg ABG HCO3 (22-26) mmol/L ABG Total CO2 (21-31) mmol/L ABG O2 Saturation (95-100) % ABG Base Excess (-2-2) mmol/L FiO2 Sodium 132 L (137-145) mmol/L Potassium 3.3 L (3.4-5.1) mmol/L Chloride 98 (98-107) mmol/L Carbon Dioxide 27 (22-32) mmol/L BUN 12 (7-17) mg/dL Creatinine 0.50 L (0.52-1.04) mg/dL Estimated GFR > 60.0 (>60) mL/min BUN/Creatinine Ratio 24.0 H (6-22) Glucose 125 H (80-110) mg/dL Lactate (0.7-2.1) mmol/L Calcium 8.7 (8.4-10.2) mg/dL Ferritin (11-264) ng/mL Total Bilirubin 0.6 (0.2-1.3) mg/dL AST 47 H (14-36) IU/L ALT 24 (<35) IU/L Alkaline Phosphatase 60 (38-126) U/L Lactate Dehydrogenase (313-618) U/L Total Creatine Kinase 71 (30-135) U/L CK-MB (CK-2) TNP CK-MB (CK-2) Rel Index TNP Troponin I < 0.012 (0.01-0.034) ng/mL C-Reactive Protein (<1.0) mg/dL NT-Pro-B Natriuret Pep (<450) pg/mL Total Protein 6.8 (6.3-8.2) g/dL Albumin 3.6 (3.5-5.0) g/dL Globulin 3.2 (1.7-4.1) g/dL Albumin/Globulin Ratio 1.1 (1.0-2.8) Procalcitonin 0.07 (<0.5) ng/mL Chlamy pneumoniae PCR (Not Detect) Adenovirus (PCR) (Not Detect) B. pertussis DNA (PCR) (Not Detecte) B.parapertussis DNA PCR (Not Detecte) Coronavirus OC43 (PCR) (Not Detect) Coronavirus HKU1 (PCR) (Not Detect) Coronavirus 229E (PCR) (Not Detect) SARS-CoV-2 (PCR) (Not Detecte) Coronavirus NL63 (PCR) (Not Detect) Human Metapneumovir PCR (Not Detect) Influenza Type A (PCR) (Not Detect) Influenza Type B (PCR) (Not Detect) M. pneumoniae (PCR) (Not Detect) Parainfluenza 1 (PCR) (Not Detect) Parainfluenza 2 (PCR) (Not Detect) Parainfluenza 3 (PCR) (Not Detect) Parainfluenza 4 (PCR) (Not Detect) RSV (PCR) (Not Detect) Entero/Rhino (PCR) (Not Detect) 02/11/21 02/11/21 02/11/21 Range/Units 19:45 19:45 19:49 WBC (4.5-11.0) X10^3/uL RBC (4.0-5.2) X10^6/uL Hgb (12.0-16.0) g/dL Hct (36-46) % MCV (80-100) fL MCH (26-34) PG MCHC (30-36) % RDW (11.6-14.8) % Plt Count (150-400) X10^3/uL Neut % (Auto) (50-75) % Lymph % (Auto) (25-40) % [place] % (Auto) (3-14) % Eos % (Auto) (2-4) % Baso % (Auto) (0-2) % Neut # (Auto) (2995-2809) /uL Lymph # (Auto) (8640-7863) /uL [place] # (Auto) (0-900) /uL Eos # (Auto) (0-450) /uL Baso # (Auto) (0-100) /uL D-Dimer (<230) ng/mL ABG pH 7.46 H (7.35-7.45) ABG pCO2 37.5 (35-45) mmHg ABG pO2 81 (80-100) mmHg ABG HCO3 27 H (22-26) mmol/L ABG Total CO2 28 (21-31) mmol/L ABG O2 Saturation 97 (95-100) % ABG Base Excess 3.0 H (-2-2) mmol/L FiO2 32 Sodium (137-145) mmol/L Potassium (3.4-5.1) mmol/L Chloride (98-107) mmol/L Carbon Dioxide (22-32) mmol/L BUN (7-17) mg/dL Creatinine (0.52-1.04) mg/dL Estimated GFR (>60) mL/min BUN/Creatinine Ratio (6-22) Glucose (80-110) mg/dL Lactate 1.0 (0.7-2.1) mmol/L Calcium (8.4-10.2) mg/dL Ferritin 589 H (11-264) ng/mL Total Bilirubin (0.2-1.3) mg/dL AST (14-36) IU/L ALT (<35) IU/L Alkaline Phosphatase (38-126) U/L Lactate Dehydrogenase 719 H (313-618) U/L Total Creatine Kinase (30-135) U/L CK-MB (CK-2) CK-MB (CK-2) Rel Index Troponin I (0.01-0.034) ng/mL C-Reactive Protein 3.6 H (<1.0) mg/dL NT-Pro-B Natriuret Pep 66 (<450) pg/mL Total Protein (6.3-8.2) g/dL Albumin (3.5-5.0) g/dL Globulin (1.7-4.1) g/dL Albumin/Globulin Ratio (1.0-2.8) Procalcitonin (<0.5) ng/mL Chlamy pneumoniae PCR (Not Detect) Adenovirus (PCR) (Not Detect) B. pertussis DNA (PCR) (Not Detecte) B.parapertussis DNA PCR (Not Detecte) Coronavirus OC43 (PCR) (Not Detect) Coronavirus HKU1 (PCR) (Not Detect) Coronavirus 229E (PCR) (Not Detect) SARS-CoV-2 (PCR) (Not Detecte) Coronavirus NL63 (PCR) (Not Detect) Human Metapneumovir PCR (Not Detect) Influenza Type A (PCR) (Not Detect) Influenza Type B (PCR) (Not Detect) M. pneumoniae (PCR) (Not Detect) Parainfluenza 1 (PCR) (Not Detect) Parainfluenza 2 (PCR) (Not Detect) Parainfluenza 3 (PCR) (Not Detect) Parainfluenza 4 (PCR) (Not Detect) RSV (PCR) (Not Detect) Entero/Rhino (PCR) (Not Detect) 02/11/21 Range/Units 20:13 WBC (4.5-11.0) X10^3/uL RBC (4.0-5.2) X10^6/uL Hgb (12.0-16.0) g/dL Hct (36-46) % MCV (80-100) fL MCH (26-34) PG MCHC (30-36) % RDW (11.6-14.8) % Plt Count (150-400) X10^3/uL Neut % (Auto) (50-75) % Lymph % (Auto) (25-40) % [place] % (Auto) (3-14) % Eos % (Auto) (2-4) % Baso % (Auto) (0-2) % Neut # (Auto) (6209-3763) /uL Lymph # (Auto) (5982-1756) /uL [place] # (Auto) (0-900) /uL Eos # (Auto) (0-450) /uL Baso # (Auto) (0-100) /uL D-Dimer (<230) ng/mL ABG pH (7.35-7.45) ABG pCO2 (35-45) mmHg ABG pO2 (80-100) mmHg ABG HCO3 (22-26) mmol/L ABG Total CO2 (21-31) mmol/L ABG O2 Saturation (95-100) % ABG Base Excess (-2-2) mmol/L FiO2 Sodium (137-145) mmol/L Potassium (3.4-5.1) mmol/L Chloride (98-107) mmol/L Carbon Dioxide (22-32) mmol/L BUN (7-17) mg/dL Creatinine (0.52-1.04) mg/dL Estimated GFR (>60) mL/min BUN/Creatinine Ratio (6-22) Glucose (80-110) mg/dL Lactate (0.7-2.1) mmol/L Calcium (8.4-10.2) mg/dL Ferritin (11-264) ng/mL Total Bilirubin (0.2-1.3) mg/dL AST (14-36) IU/L ALT (<35) IU/L Alkaline Phosphatase (38-126) U/L Lactate Dehydrogenase (313-618) U/L Total Creatine Kinase (30-135) U/L CK-MB (CK-2) CK-MB (CK-2) Rel Index Troponin I (0.01-0.034) ng/mL C-Reactive Protein (<1.0) mg/dL NT-Pro-B Natriuret Pep (<450) pg/mL Total Protein (6.3-8.2) g/dL Albumin (3.5-5.0) g/dL Globulin (1.7-4.1) g/dL Albumin/Globulin Ratio (1.0-2.8) Procalcitonin (<0.5) ng/mL Chlamy pneumoniae PCR Not detected (Not Detect) Adenovirus (PCR) Not detected (Not Detect) B. pertussis DNA (PCR) Not detected (Not Detecte) B.parapertussis DNA PCR Not detected (Not Detecte) Coronavirus OC43 (PCR) Not detected (Not Detect) Coronavirus HKU1 (PCR) Not detected (Not Detect) Coronavirus 229E (PCR) Not detected (Not Detect) SARS-CoV-2 (PCR) Detected H (Not Detecte) Coronavirus NL63 (PCR) Not detected (Not Detect) Human Metapneumovir PCR Not detected (Not Detect) Influenza Type A (PCR) Not detected (Not Detect) Influenza Type B (PCR) Not detected (Not Detect) M. pneumoniae (PCR) Not detected (Not Detect) Parainfluenza 1 (PCR) Not detected (Not Detect) Parainfluenza 2 (PCR) Not detected (Not Detect) Parainfluenza 3 (PCR) Not detected (Not Detect) Parainfluenza 4 (PCR) Not detected (Not Detect) RSV (PCR) Not detected (Not Detect) Entero/Rhino (PCR) Not detected (Not Detect) Imaging Data Chest x-ray: Radiologist's Impression: FINDINGS: Surgical changes and devices: Surgical clips are seen in right axilla.. Lungs and pleura: Mild pulmonary vascular congestion is seen. Subtle opacity in right mid lung field and bilateral lower lung medrano are seen. No pleural effusions or pneumothorax. Mediastinum: Mediastinal contours appear normal. Heart size is enlarged. Bones and chest wall: No suspicious bony lesions. Overlying soft tissues appear unremarkable. IMPRESSION: Subtle opacities scattered in bilateral lung medrano concerning for developing bilateral multilobar infiltrates. Mild pulmonary vascular congestion. Dictated by: Rom Cage M.D. on 02/11/2021 at 20:26 ECG Data Interpretation: Sinus rhythm at a rate of [address] T wave changes Normal intervals, normal axis No acute ischemic changes MDM Narrative Medical decision making narrative: 75-year-old woman on day 9-10 of COVID-19 symptoms with COVID pneumonia now requiring oxygen with significant weakness and moderate headache. She is doing well with 3 L of oxygen at this time. She is given Decadron in the emergency department and loaded with 200 mg of from disc severe. Will plan for hospital admission with the hospitalist's service. Questions are answered and patient is safe for transfer to the floor Discharge Plan Departure Patient Disposition: Admitted As Inpatient Clinical Impression: Pneumonia due to 2019 novel coronavirus Prescriptions: No Action atenolol 50 MG tablet 25 mg PO QDAY Qty: 0 RF: 0 melatonin 5 mg Tablet 5 mg PO BEDTIME Qty: 0 RF: 0 omega 3-lws-xxg-fish oil [Fish Oil] 1,000 mg (120 mg-180 mg) Capsule 800 mg PO BID Qty: 0 RF: 0 cholecalciferol (vitamin D3) [Vitamin D3] 2,000 unit Capsule 2,000 unit PO BID RF: 0 (DME) Respironics DreamStation CPAP Qty: 1 RF: 0 Referrals: Maryanne Baker PA-C [Primary Care Provider] -
--- NOTE | 2021-02-11 21:38 | PC.NURSE ---
Daughter Arianne Saucedo called x2 for update on pt condition, questions answered.
[2021-02-11] MEDS: DEXAMETHASONE 10 MG/ML VIAL IV (22:09)
[2021-02-11] MEDS: REMDESIVIR IV (22:09)
[2021-02-11] MEDS: SODIUM CHLORIDE 0.9% IV (22:09)
[2021-02-11 22:26] VITALS: BP 125/69; PULSE 88; RESP 21; O2SAT 96
[2021-02-12] VITALS (11 sets, daily range): BP systolic 99–136; BP diastolic 59–87; PULSE 65–98; RESP 16–20; TEMP 35.9–36.6; O2SAT 91–96; BMI 37.0
--- NOTE | 2021-02-12 01:10 | P.HP_ITS ---
History of Present Illness History of Present Illness Date Patient Seen: 02/12/21 Time Patient Seen: 00:45 Chief complaint: COVID-19, no improvement X 1 week Narrative: Vivienne Najera is a 75 y.o. unvaccinated female with essential hypertension, a remote history of HER-2+ breast cancer in remission, obstructive sleep apnea, and obesity had completed travelling to [place] for her brother's service from [facility] to the [facility] and was intermixing with a number of people she did not have regular contract with. States on 02/05, she had a nurse visit at her PCPs, was tested and found to have contracted COVID-19. She was quarantining at home and her only symptoms was that she felt lousy, had a headache and had no appetite. States she still has a sense of taste and smell, denies chest pain, nausea or vomiting, abdominal pain, dysurea, diarrhea or constipation or upper or lower extremity numbness or tingling. She states she did not take a vaccination because she has not gone anywhere but now that she has come down with COVID-19, will get one once she is able to. Chest x-ray done in the ED indicated a bilateral pleural effusions. Oxygen saturations at rest on room air were 92% and come up to the 96-97% range on 3 L. She has afebrile, blood pressure 125/82, heart rate 91, respiratory rate 20, oxygen saturation is 96% on 3 L and she weighs 99.7 kg. CBC is unremarkable, ABG pH was 7.46 bicarb 27 pCO2 was 81 ABG O2 was 97% with a base excess of 3. Sodium 132, potassium 3.3, creatinine is 0.5 with a normal GFR, glucose is 125, ferritin 589, AST 47, lactate dehydrogenase is 719, C-reactive protein is 3.6, procalcitonin is negative, respiratory panel with exception of COVID-19 PCR is negative. Patient History Medical History Breast cancer, right breast Chronic left hip pain Essential hypertension Hypertension Insomnia, persistent Obesity (BMI 30-39.9) Obesity hypoventilation syndrome Obstructive sleep apnea Personal history of malignant neoplasm of breast Rhinitis Surgical History History of appendectomy Family & Social History Family History Mother Dementia Father Congestive heart failure Brother Fall Social History: household members children lives independently Yes caregiver/support person No Tobacco & Substance use: Smoking Status Former smoker Meds Home Medications and Allergies Home Medications Medication Instructions Recorded Confirmed Type atenolol 50 mg tablet 25 mg PO QDAY #0 01/19/13 01/13/21 History melatonin 5 mg tablet 5 mg PO BEDTIME #0 01/19/13 01/13/21 History omega 9-hrc-mce-fish oil 1,000 mg 800 mg PO BID #0 01/19/13 01/13/21 History (120 mg-180 mg) capsule (Fish Oil) cholecalciferol (vitamin D3) 50 2,000 unit PO BID 01/02/19 01/13/21 History mcg (2,000 unit) capsule (Vitamin D3) Respironics DreamStation CPAP #1 ea 06/05/20 01/13/21 History Allergies Allergy/AdvReac Type Severity Reaction Status Date / Time adhesive tape [ADHESIVE TAPE] AdvReac Mild BLISTERS, Verified 01/02/19 13:50 BANDAIDS AND PAPER TAPE OK Review of Systems Review of Systems ROS: Yes All systems reviewed with the patient and are negative except as otherwise documented Exam Vital Signs (past 8 hours): - 02/11/21 18:52 02/11/21 19:23 02/11/21 19:30 Temperature 97.6 F Pulse Rate 106 H 98 H 101 H Respiratory Rate 22 25 H 27 H Blood Pressure 148/83 H Pulse Oximetry 92 89 L 94 02/11/21 19:43 02/11/21 20:58 02/11/21 22:26 Temperature Pulse Rate 96 H 85 88 Respiratory Rate 21 22 21 Blood Pressure 117/74 115/75 125/69 Pulse Oximetry 93 96 96 02/12/21 00:23 Temperature Pulse Rate 91 H Respiratory Rate 20 Blood Pressure 125/82 Pulse Oximetry 96 Oxygen Delivery Method Nasal Cannula Oxygen Flow Rate 3 Narrative Exam Narrative: Gen: Alert, oriented, obese 75 y.o. female, appears fatigued HEENT: normocephalic, atraumatic, conjunctiva clear, sclera non-icteric, oral mucosa pink and moist Neck: supple, full ROM, no JVD, trachea is midline Resp: Lungs CTA and diminished, non-labored breathing on 3L O2. CV: RRR, no murmur or rubs Abd: soft, non-tender, normoactive BTs Skin: no lesions or rashes, dry and intact Neuro: Alert and oriented X 4 w/no focal deficits. Speech clear and coherent. Extremities: moves all 4 extremities, is ambulatory, negative Camille?s sign Psyche: normal mood and affect. Objective Labs Result Diagrams: 02/11/21 19:45 02/11/21 19:45 Labs: Laboratory Results - last 24 hr 02/11/21 02/11/21 02/11/21 19:45 19:45 19:45 WBC 3.5 L RBC 4.73 Hgb 15.3 Hct 43.6 MCV 92.3 MCH 32.3 MCHC 35.0 RDW 12.7 Plt Count 165 Neut % (Auto) 66.2 Lymph % (Auto) 21.1 L [place] % (Auto) 12.2 Eos % (Auto) 0.1 L Baso % (Auto) 0.4 Neut # (Auto) 2300 Lymph # (Auto) 700 L [place] # (Auto) 400 Eos # (Auto) 0 Baso # (Auto) 0 D-Dimer < 200 ABG pH ABG pCO2 ABG pO2 ABG HCO3 ABG Total CO2 ABG O2 Saturation ABG Base Excess FiO2 Sodium 132 L Potassium 3.3 L Chloride 98 Carbon Dioxide 27 BUN 12 Creatinine 0.50 L Estimated GFR > 60.0 BUN/Creatinine Ratio 24.0 H Glucose 125 H Lactate Calcium 8.7 Ferritin Total Bilirubin 0.6 AST 47 H ALT 24 Alkaline Phosphatase 60 Lactate Dehydrogenase Total Creatine Kinase 71 CK-MB (CK-2) TNP CK-MB (CK-2) Rel Index TNP Troponin I < 0.012 C-Reactive Protein NT-Pro-B Natriuret Pep Total Protein 6.8 Albumin 3.6 Globulin 3.2 Albumin/Globulin Ratio 1.1 Procalcitonin 0.07 Chlamy pneumoniae PCR Adenovirus (PCR) B. pertussis DNA (PCR) B.parapertussis DNA PCR Coronavirus OC43 (PCR) Coronavirus HKU1 (PCR) Coronavirus 229E (PCR) SARS-CoV-2 (PCR) Coronavirus NL63 (PCR) Human Metapneumovir PCR Influenza Type A (PCR) Influenza Type B (PCR) M. pneumoniae (PCR) Parainfluenza 1 (PCR) Parainfluenza 2 (PCR) Parainfluenza 3 (PCR) Parainfluenza 4 (PCR) RSV (PCR) Entero/Rhino (PCR) 02/11/21 02/11/21 02/11/21 19:45 19:45 19:49 WBC RBC Hgb Hct MCV MCH MCHC RDW Plt Count Neut % (Auto) Lymph % (Auto) [place] % (Auto) Eos % (Auto) Baso % (Auto) Neut # (Auto) Lymph # (Auto) [place] # (Auto) Eos # (Auto) Baso # (Auto) D-Dimer ABG pH 7.46 H ABG pCO2 37.5 ABG pO2 81 ABG HCO3 27 H ABG Total CO2 28 ABG O2 Saturation 97 ABG Base Excess 3.0 H FiO2 32 Sodium Potassium Chloride Carbon Dioxide BUN Creatinine Estimated GFR BUN/Creatinine Ratio Glucose Lactate 1.0 Calcium Ferritin 589 H Total Bilirubin AST ALT Alkaline Phosphatase Lactate Dehydrogenase 719 H Total Creatine Kinase CK-MB (CK-2) CK-MB (CK-2) Rel Index Troponin I C-Reactive Protein 3.6 H NT-Pro-B Natriuret Pep 66 Total Protein Albumin Globulin Albumin/Globulin Ratio Procalcitonin Chlamy pneumoniae PCR Adenovirus (PCR) B. pertussis DNA (PCR) B.parapertussis DNA PCR Coronavirus OC43 (PCR) Coronavirus HKU1 (PCR) Coronavirus 229E (PCR) SARS-CoV-2 (PCR) Coronavirus NL63 (PCR) Human Metapneumovir PCR Influenza Type A (PCR) Influenza Type B (PCR) M. pneumoniae (PCR) Parainfluenza 1 (PCR) Parainfluenza 2 (PCR) Parainfluenza 3 (PCR) Parainfluenza 4 (PCR) RSV (PCR) Entero/Rhino (PCR) 02/11/21 20:13 WBC RBC Hgb Hct MCV MCH MCHC RDW Plt Count Neut % (Auto) Lymph % (Auto) [place] % (Auto) Eos % (Auto) Baso % (Auto) Neut # (Auto) Lymph # (Auto) [place] # (Auto) Eos # (Auto) Baso # (Auto) D-Dimer ABG pH ABG pCO2 ABG pO2 ABG HCO3 ABG Total CO2 ABG O2 Saturation ABG Base Excess FiO2 Sodium Potassium Chloride Carbon Dioxide BUN Creatinine Estimated GFR BUN/Creatinine Ratio Glucose Lactate Calcium Ferritin Total Bilirubin AST ALT Alkaline Phosphatase Lactate Dehydrogenase Total Creatine Kinase CK-MB (CK-2) CK-MB (CK-2) Rel Index Troponin I C-Reactive Protein NT-Pro-B Natriuret Pep Total Protein Albumin Globulin Albumin/Globulin Ratio Procalcitonin Chlamy pneumoniae PCR Not detected Adenovirus (PCR) Not detected B. pertussis DNA (PCR) Not detected B.parapertussis DNA PCR Not detected Coronavirus OC43 (PCR) Not detected Coronavirus HKU1 (PCR) Not detected Coronavirus 229E (PCR) Not detected SARS-CoV-2 (PCR) Detected H Coronavirus NL63 (PCR) Not detected Human Metapneumovir PCR Not detected Influenza Type A (PCR) Not detected Influenza Type B (PCR) Not detected M. pneumoniae (PCR) Not detected Parainfluenza 1 (PCR) Not detected Parainfluenza 2 (PCR) Not detected Parainfluenza 3 (PCR) Not detected Parainfluenza 4 (PCR) Not detected RSV (PCR) Not detected Entero/Rhino (PCR) Not detected Assessment & Plan Assessment & Plan narrative: Vivienne Najera will be admitted for further treatment of COVID-19. 1. COVID-19, acute, present on admission * She was given loading doses of IV remdesivir 200 mg and IV dexamethasone 6 mg * She will be given a maintenance dose of remdesivir 100 mg and IV dexamethasone 6 mg starting 02/12 * I have started her on a Z-Yordan * RT assess and treat * Patient is a DNI 2. Hypokalemia and hyponatremia * Potassium was 3.3 and sodium was 1.32 * She will receive oral potassium 40 mEq x 1 recheck in the morning * Normal diet 2. Obesity hypoventilation syndrome, chronic likely present on admission * Recommend proning at least 12 hours a day 3. Obstructive sleep apnea, chronic, present on admission * Patient may use own CPAP machine 4. Essential hypertension, chronic currently normotensive * Normally takes atenolol 25 mg p.o. daily will continue tomorrow VTE Prophylaxis: Wells risk score 0 Enoxaparin 40 mg subQ once daily Patient is admitted to the inpatient service due to the severity of disease, risks of further disease progression and this stay is expected to exceed 2 midnights. FEN: IV fluids: saline lock, diet: general diet, labs: CBC, C/BMP, liver enzymes, [employer] None Dispo: Unknown at this time, her prognosis is guarded given her chronic res piratory issues Code status: DNI as discussed extensively with the patient who identifies danita Najera as her surrogate and POA. I have utilized all available immediate resources (patient, family member, internal and external medical records) to obtain, update, or review the kevin ent?s current home medications. COVID-19 COVID-19 status: Positive Result date/Date tested (Pos, Neg/Pending): 02/05/21 Scores Wells' Criteria for PE Clinical signs and symptoms of DVT: No PE is #1 Dx or equally likely: No Heart rate > 100: No Immobilization at least 3 days or surg in previous 4 weeks: No History of PE or DVT: No Hemoptysis: No Malignancy w/Treatment within 6 months or palliative: No Wells' PE Score total: 0 Quality VTE Deep Vein Thrombosis/Pulmonary Embolism Present on Admission: No MIPS - Admit I confirm the patient?s Advance Care Plan is present, Code status is documented, Surrogate decision maker is in patient?s record [If Yes, STOP here]: Yes MIPS - DC The patient has current or prior documentation of left ventricular ejection fraction (LVEF) less than 40%, or moderate or severely depressed left ventricular systolic function.: No
[2021-02-12] MEDS: POTASSIUM CHLORIDE 20 MEQ TAB 40 MEQ PO (02:37)
[2021-02-12] MEDS: AZITHROMYCIN 250 MG TABLET 500 MG PO (02:37)
[2021-02-12 05:41] LABS: Add Manual Diff / Slide Review NO; Basophils Absolute Auto 0 /uL (0-100); Basophils Percent Auto 0.2 % (0-2); Eosinophils Absolute Auto 0 /uL (0-450); Hematocrit 44.3 % (36-46); Hemoglobin 15.4 g/dL (12.0-16.0); Lymphocytes Absolute Auto 400 /uL (1100-4500); Lymphocytes Percent Auto 11.2 % (25-40); Mean Corpuscular HGB Conc 34.7 % (30-36); Mean Corpuscular Hemoglobin 32.5 PG (26-34); Mean Corpuscular Volume 93.6 fL (80-100); Monocytes Absolute Auto 200 /uL (0-900); Monocytes Percent Auto 5.9 % (3-14); Neutrophils Absolute Auto 2800 /uL (1500-7000); Neutrophils Percent Auto 82.7 % (50-75); Platelet Count 166 X10^3/uL (150-400); Red Blood Cell Count 4.73 X10^6/uL (4.0-5.2); Red Cell Distribution Width 12.7 % (11.6-14.8); White Blood Cell Count 3.4 X10^3/uL (4.5-11.0)
[2021-02-12 05:47] LABS: Alanine Aminotransferase 26 IU/L (<35); Albumin 3.6 g/dL (3.5-5.0); Albumin Globulin Ratio 1.1 (1.0-2.8); Alkaline Phosphatase 60 U/L (38-126); Aspartate Aminotransferase 48 IU/L (14-36); BUN Creatinine Ratio 19.2 (6-22); Bilirubin Total 0.6 mg/dL (0.2-1.3); Bilirubin Unconjugated 0.4 mg/dL (0.0-1.1); Blood Urea Nitrogen 10 mg/dL (7-17); Calcium 8.5 mg/dL (8.4-10.2); Carbon Dioxide 29 mmol/L (22-32); Chloride 100 mmol/L (98-107); Estimated Glomerular Filt Rate > 60.0 mL/min (>60); Globulin 3.2 g/dL (1.7-4.1); Glucose 183 mg/dL (80-110); HEMOLYSIS < 15 (0-50); Magnesium 1.9 mg/dL (1.6-2.3); Potassium 4.1 mmol/L (3.4-5.1); Sodium 135 mmol/L (137-145); Total Protein 6.8 g/dL (6.3-8.2)
[2021-02-12] MEDS: atenoloL 50 MG TABLET 25 MG PO (09:16)
[2021-02-12] MEDS: FUROSEMIDE 40 MG/4 ML VIAL IV ×2 (09:16→17:57)
[2021-02-12] MEDS: ENOXAPARIN 40 MG/0.4 ML SYRINGE SUBCUT (09:17)
[2021-02-12] MEDS: DEXAMETHASONE 10 MG/ML VIAL 6 MG IV (09:17)
[2021-02-12] MEDS: ACETAMINOPHEN 325 MG TABLET 650 MG PO ×2 (09:17→18:17)
--- NOTE | 2021-02-12 17:07 | PC.NURSE ---
Addendum entered by Ophelia Floyd R.N. 02/12/21 23:05: Positioned onto right side in bed after RN Miriam discussed proning with pt. CPAP with [address]. Oxygen level 92-93%. Yusef Bustamante, in to draw ABG as ordered. VENANCIO Mederos aware as well as evening shift production associate, Hilda. Addendum entered by Ophelia Floyd R.N. 02/12/21 21:27: R.T. informed of orders for stat ABG. R.T. reports currently involved in intubation, but aware of order and will perform when able. Addendum entered by Ophelia Floyd R.N. 02/12/21 21:21: Yusef Bustamante, exits room and informs this newswriter pt required 7 L to obtain oxygen saturation level of 93%. Has bled in oxygen to pt's own cpap. VENANCIO Mederos informed of pt's increased oxygen requirements. Per VENANCIO, will order ABG and have R.T. evaluate for heated hi flow oxygen. Addendum entered by Ophelia Floyd R.N. 02/12/21 20:57: Pt's oxygen level on 4L per nc 91%. Pt's output has been 300 cc's since receiving lasix this evening. Yusef Bustamante, informed and in to see patient and assess as well as set up pt's own cpap that was brought to hospital by family. Original Note: Pt in bed with head of bed upright. 02 per NC @ 3L/min with saturation level 90-91% per monitor. Increased oxygen delivery to 4L/min and oxygen levels increase to 92-94%. Dr. Davidson informed. Per , administer morning's dose lasix once again at this time.
[2021-02-12] MEDS: SODIUM CHLORIDE 0.9% FLUSH 10 ML IV ×2 (17:58→21:19)
[2021-02-12] MEDS: REMDESIVIR 100 MG in SODIUM CHLORIDE 0.9% 230 ML 250 ML IV (21:18)
[2021-02-12] MEDS: MELATONIN 3 MG TABLET 6 MG PO (21:19)
[2021-02-12] MEDS: SODIUM CHLORIDE 0.9% 250 ML 21 ML IV (21:31)
[2021-02-12 23:31] LABS: PCO2 ABG 36.2 mmHg (35-45); PO2 ABG 73 mmHg (80-100); pH ABG 7.46 (7.35-7.45)
[2021-02-12 23:32] LABS: Fractionated Inspired Oxygen 48; HCO3 ABG 26 mmol/L (22-26); Oxygen Saturation ABG 95 % (95-100); TCO2 ABG 27 mmol/L (21-31)
[2021-02-13] VITALS (11 sets, daily range): BP systolic 100–127; BP diastolic 52–87; PULSE 67–72; RESP 18–22; TEMP 36.2–36.8; O2SAT 92–99
--- NOTE | 2021-02-13 01:15 | PC.NURSE ---
Patient is alert and oriented. Breath sounds diminished throughout. On oxygen at 7L/min bled into CPAP with sat of 92% at rest. Took oxygen off to use BSC and sat was 88-90% when seated on commode but dropped to 81% during transfer. Denied SOB. HRR with telemetry reading of SR. Denied nausea. BT hypoactive but is passing flatus. Denied dysuria, frequency or urgency with urination. Is able to move self in bed. Declines to lie prone but is agreeable to lying on side. Up to [facility] with SBA. Denied pain. Fall risk score is moderate; patient calls for assistance appropriately so bed alarm not in use at this time. On 0100 bed check patient found with sat of 89% so RT called and in to assess patient. Per RT patient's oxygen was increased to 13L/min with sat now at 92%. Gatito CRAFT, informed.
[2021-02-13 06:02] LABS: Hematocrit 43.8 % (36-46); Mean Corpuscular HGB Conc 34.2 % (30-36); Mean Corpuscular Volume 93.4 fL (80-100); Platelet Count 189 X10^3/uL (150-400); Red Blood Cell Count 4.69 X10^6/uL (4.0-5.2); Red Cell Distribution Width 12.4 % (11.6-14.8); White Blood Cell Count 6.2 X10^3/uL (4.5-11.0)
--- NOTE | 2021-02-13 06:02 | DI.RAD.S_ITS ---
PROCEDURE: XR CHEST 1V INDICATIONS: COVID+, got lasix, improved vascular congestion? TECHNIQUE: One view of the chest was acquired. COMPARISON: [facility], CR, XR CHEST 1V, 02/11/2021, 20:07. FINDINGS: Surgical changes and devices: None. Lungs and pleura: Shallow inspiration. Chronic right hemidiaphragm elevation. Mild infiltrate in the right upper lung zone.. No pleural effusions or pneumothorax. Mediastinum: Mediastinal contours appear normal. Heart size is normal. Bones and chest wall: No suspicious bony lesions. Overlying soft tissues appear unremarkable. IMPRESSION: Mild infiltrate in the upper lung zone suspicious for pneumonia. No significant discrepancy with the night auditor radiology preliminary report. Dictated by: Dhara Brink M.D. on 02/13/2021 at 7:21 Approved by: Dhara Brink M.D. on 02/13/2021 at 7:22
[2021-02-13 06:14] LABS: Alanine Aminotransferase 25 IU/L (<35); Albumin 3.4 g/dL (3.5-5.0); Albumin Globulin Ratio 1.1 (1.0-2.8); Alkaline Phosphatase 55 U/L (38-126); Aspartate Aminotransferase 44 IU/L (14-36); BUN Creatinine Ratio 29.7 (6-22); Bilirubin Total 0.6 mg/dL (0.2-1.3); Bilirubin Unconjugated 0.5 mg/dL (0.0-1.1); Blood Urea Nitrogen 19 mg/dL (7-17); Calcium 8.6 mg/dL (8.4-10.2); Carbon Dioxide 28 mmol/L (22-32); Chloride 98 mmol/L (98-107); Estimated Glomerular Filt Rate > 60.0 mL/min (>60); Globulin 3.1 g/dL (1.7-4.1); Glucose 138 mg/dL (80-110); HEMOLYSIS < 15 (0-50); Magnesium 1.9 mg/dL (1.6-2.3); Potassium 4.2 mmol/L (3.4-5.1); Sodium 136 mmol/L (137-145); Total Protein 6.5 g/dL (6.3-8.2)
[2021-02-13] MEDS: ACETAMINOPHEN 325 MG TABLET 650 MG PO ×3 (07:48→22:03)
[2021-02-13] MEDS: DEXAMETHASONE 10 MG/ML VIAL 6 MG IV (08:02)
[2021-02-13] MEDS: ENOXAPARIN 40 MG/0.4 ML SYRINGE SUBCUT (08:02)
[2021-02-13] MEDS: SODIUM CHLORIDE 0.9% FLUSH 10 ML IV ×2 (08:06→22:12)
[2021-02-13] MEDS: atenoloL 50 MG TABLET 25 MG PO (08:07)
--- NOTE | 2021-02-13 09:11 | CM.IDA ---
Initial DCP Assessment Note Pt is a 75 yo female, resident of [place], arrives w/worsening symptoms of COVID-19 pneumonia. Patient unvaccinated and recently had come back from her brother's service in [place] PCP: Maryanne Baker Payer: [employer] Reviewed chart, pt's functional baseline unclear. Appears as though patient lives alone and is independent in ADLs. two daughters are listed as contacts. Patient currently on 15L via CPAP. This RESERVATION SALES AGENT will follow closely and can place call into patient's room and/or to her family, if given permission, to review DCP. CHRIS Brown
--- NOTE | 2021-02-13 11:02 | P.PN_ITS ---
Subjective Subjective Date Patient Seen: 02/13/21 Time Patient Seen: 08:00 Interval history: She says she feels about the same. Still fatigued and slight short of breath with a cough. Overnight was more hypoxemic so had her oxygen requirements raised. Exam Vital Signs (past 8 hours): - 02/13/21 04:34 02/13/21 06:17 02/13/21 07:50 Temperature 98.3 F 98.3 F Pulse Rate 72 68 Respiratory Rate 22 20 Blood Pressure 106/59 L 113/76 Pulse Oximetry 94 99 93 02/13/21 08:58 Temperature Pulse Rate Respiratory Rate Blood Pressure Pulse Oximetry 98 Fraction of Inspired Oxygen 35 Oxygen Delivery Method CPAP Oxygen Flow Rate 15 Narrative Exam Narrative: Gen: fatigued, no acute distress Resp: diminished breath sound bilaterally CV: regular rate and rhythm, no murmur or rubs Abd: soft, non-tender, normal bowel sounds Skin: no lesions or rashes, dry and intact Psyche: normal mood and affect. Objective Labs Result Diagrams: 02/13/21 05:10 02/13/21 05:10 Labs: Laboratory Results - last 24 hr 02/12/21 02/13/21 02/13/21 23:00 05:10 05:10 WBC RBC Hgb Hct MCV MCH MCHC RDW Plt Count ABG pH 7.46 H ABG pCO2 36.2 ABG pO2 73 L ABG HCO3 26 ABG Total CO2 27 ABG O2 Saturation 95 ABG Base Excess 2.0 FiO2 48 Sodium 136 L Potassium 4.2 Chloride 98 Carbon Dioxide 28 BUN 19 H Creatinine 0.64 Estimated GFR > 60.0 BUN/Creatinine Ratio 29.7 H Glucose 138 H Calcium 8.6 Magnesium 1.9 Total Bilirubin 0.6 Conjugated Bilirubin 0.0 Unconjugated Bilirubin 0.5 AST 44 H ALT 25 Alkaline Phosphatase 55 Total Protein 6.5 Albumin 3.4 L Globulin 3.1 Albumin/Globulin Ratio 1.1 02/13/21 05:10 WBC 6.2 D RBC 4.69 Hgb 15.0 Hct 43.8 MCV 93.4 MCH 32.0 MCHC 34.2 RDW 12.4 Plt Count 189 ABG pH ABG pCO2 ABG pO2 ABG HCO3 ABG Total CO2 ABG O2 Saturation ABG Base Excess FiO2 Sodium Potassium Chloride Carbon Dioxide BUN Creatinine Estimated GFR BUN/Creatinine Ratio Glucose Calcium Magnesium Total Bilirubin Conjugated Bilirubin Unconjugated Bilirubin AST ALT Alkaline Phosphatase Total Protein Albumin Globulin Albumin/Globulin Ratio [facility] Medical History Breast cancer, right breast Chronic left hip pain Essential hypertension Hypertension Insomnia, persistent Obesity (BMI 30-39.9) Obesity hypoventilation syndrome Obstructive sleep apnea Personal history of malignant neoplasm of breast Rhinitis Surgical History History of appendectomy Family History Mother Dementia Father Congestive heart failure Brother Fall Social History marital status: details: in March 2018 household members: children lives independently: Yes caregiver/support person: No leisure activities: reading seatbelt use: always do you feel safe at home: Yes Smoking Status: Former smoker substance use type: does not use additional social history: Describes very supportive community; daughters, friends, fellow adventism members Assessment & Plan Assessment & Plan narrative: 1. Acute hypoxemic respiratory failure secondary to COVIVD pneumonia -continue remdesivir and dexamethasone -RT eval -patient is DNI -encourage proning 2. Hypokalemia and hyponatremia, improved 3. Obstructive sleep apnea, chronic, present on admission -patient may use own CPAP machine overnight 4. Essential hypertension, chronic currently normotensive -continue atenolol 5. Obesity -likely contributing to severity of disease -BMI 37.1 Quality VTE Deep Vein Thrombosis/Pulmonary Embolism Present on Admission: No
--- NOTE | 2021-02-13 17:44 | PC.NURSE ---
Addendum entered by Ophelia Floyd R.N. 02/13/21 21:43: Pt prefers out of bed to recliner for sleep. Requires one assist to mobilize d/t weakness. Commode use prior to reclining in recliner. Desats with activity, but quickly recovers to 91-92% on 7L per NC. R.T. in to set up pt's cpap for sleep and pt refuses cpap. Oxygen level 94% on 7L NC per R.T. Original Note: Pt up in chair taking diet slowly. On telephone speaking in complete sentences. 02 @ 7L per nc with continuous pulse oximeter in place and saturation level 94%. Provided with plenty of oral fluids. Bed zero'd and will obtain weight when returns to bed. Plan to encourage/instruct in benefit of proning when in bed.
[2021-02-13] MEDS: REMDESIVIR 100 MG in SODIUM CHLORIDE 0.9% 230 ML 250 ML IV (22:00)
[2021-02-13] MEDS: MELATONIN 3 MG TABLET 6 MG PO (22:00)
[2021-02-13] MEDS: SODIUM CHLORIDE 0.9% 250 ML 21 ML IV (22:01)
[2021-02-14] VITALS (10 sets, daily range): BP systolic 108–126; BP diastolic 69–79; PULSE 58–69; RESP 16–22; TEMP 35.7–36.6; O2SAT 91–96
--- NOTE | 2021-02-14 00:59 | PC.NURSE ---
Patient is alert and oriented. Breath sounds diminished/coarse throughout. Oxygen at 7L/min per NC with sat of 91% so gradually to 10L/min in order to keep sats at 93%. Occasional cough which she states has been productive of scant, white sputum. Report from evening RN indicates patient also desats with activity but denies SOB at rest. Being monitored on continuous oximetry. HRR with telemetry reading of SR. Denied nausea. BT hypoactive but is passing flatus. Denies dysuria, frequency or urgency with urination. Able to move self in bed/chair and receives SBA to BSC due to weakness. Denied pain. Fall risk score is moderate but patient calls for assistance appropriately so bed alarm not in use at this time. Patient declines to prone in bed and is currently sleeping in recliner. Refused use of CPAP tonight.
[2021-02-14 05:01] LABS: Hematocrit 43.4 % (36-46); Hemoglobin 15.2 g/dL (12.0-16.0); Mean Corpuscular HGB Conc 34.9 % (30-36); Mean Corpuscular Hemoglobin 32.6 PG (26-34); Mean Corpuscular Volume 93.4 fL (80-100); Platelet Count 196 X10^3/uL (150-400); Red Blood Cell Count 4.65 X10^6/uL (4.0-5.2); Red Cell Distribution Width 12.3 % (11.6-14.8); White Blood Cell Count 5.2 X10^3/uL (4.5-11.0)
[2021-02-14 05:16] LABS: BUN Creatinine Ratio 34.5 (6-22); Blood Urea Nitrogen 19 mg/dL (7-17); Calcium 8.7 mg/dL (8.4-10.2); Carbon Dioxide 30 mmol/L (22-32); Chloride 100 mmol/L (98-107); Estimated Glomerular Filt Rate > 60.0 mL/min (>60); Glucose 149 mg/dL (80-110); HEMOLYSIS 23 (0-50); Magnesium 2.1 mg/dL (1.6-2.3); Potassium 4.7 mmol/L (3.4-5.1); Sodium 135 mmol/L (137-145)
[2021-02-14 05:18] LABS: Alanine Aminotransferase 31 IU/L (<35); Albumin 3.1 g/dL (3.5-5.0); Albumin Globulin Ratio 1.2 (1.0-2.8); Alkaline Phosphatase 52 U/L (38-126); Aspartate Aminotransferase 48 IU/L (14-36); Bilirubin Total 0.6 mg/dL (0.2-1.3); Bilirubin Unconjugated 0.5 mg/dL (0.0-1.1); C-Reactive Protein Quant 2.9 mg/dL (<1.0); D Dimer < 200 ng/mL (<230); Globulin 2.6 g/dL (1.7-4.1); HEMOLYSIS < 15 (0-50); Lactate Dehydrogenase 907 U/L (313-618); Total Protein 5.7 g/dL (6.3-8.2)
[2021-02-14 05:32] LABS: Procalcitonin 0.13 ng/mL (<0.5)
[2021-02-14] MEDS: DEXAMETHASONE 10 MG/ML VIAL 6 MG IV (08:08)
[2021-02-14] MEDS: ENOXAPARIN 40 MG/0.4 ML SYRINGE SUBCUT (08:08)
[2021-02-14] MEDS: atenoloL 50 MG TABLET 25 MG PO (08:08)
[2021-02-14] MEDS: SODIUM CHLORIDE 0.9% FLUSH 10 ML IV ×2 (08:08→22:06)
--- NOTE | 2021-02-14 13:10 | PC.NURSE ---
Addendum entered by Kelly Hernandez R.N. 02/14/21 14:53: Patient sitting up in chair, O2 sat remain 94% on 7L via humidified NC. States breathing effort is improved in comparison to this morning. Patient appears more comfortable. Discussed importance of proning. Original Note: Day shift note: Patient awake, alert, and pleasantly calm. Up OOB to BSC with minimal assistance, voiding sufficiently. At rest O2 sats 91-96% at 7L via humidified NC, with activity and post-tussive episodes patient desats to mid 80's and noted 77%, however recovers between 6-10 seconds to low 90's. Dr. Sheehan at bedside, made aware regarding desaturation with activity. Encouraging fluids and small frequent bites with meal, however poor appetite. Sitting up chair with meals, daughter Soraida was updated this shift and transferred call to patient. Patient states breathing effort is not worse or improved from previous day. Frequent productive cough noted this am, and sporadic as day progressed. Calls appropriately for staff assistance.
--- NOTE | 2021-02-14 14:32 | CM.DPNOTE ---
DCP Note Placed call into patient's room. Patient able to carry on conversation w/o becoming SOB; states she lives w/her dtr Ivy, patient indp. at baseline; dtr will be available to assist patient upon her return home as she recovers. Dtr Ava also lives locally. Patient feels she has what she needs for her recovery at home and denies additional needs from this ACTIVITIES COUNSELOR at this time. Plan: DC home w/family once medically cleared. CM team will plan to follow closely in case any DC needs or concerns arise. VINICIUS
--- NOTE | 2021-02-14 15:07 | P.PN_ITS ---
Subjective Subjective Date Patient Seen: 02/14/21 Interval history: Patient is 75-year-old female admitted with acute respiratory failure due to COVID pneumonia. Patient feels weak and tired and has a cough. She is currently on 7 L O2 nasal cannula at rest but desaturates into the mid 70s with coughing or moving within room. Her O2 sats do recover into 90s within 10 seconds. Exam Vital Signs (past 8 hours): - 02/14/21 08:25 02/14/21 11:50 Temperature 97.9 F 97.9 F Pulse Rate 62 60 Respiratory Rate 16 18 Blood Pressure 120/73 108/71 Pulse Oximetry 94 92 Fraction of Inspired Oxygen 35 Oxygen Delivery Method Nasal Cannula,Humidification Oxygen Flow Rate 7 Narrative Exam Narrative: General: Alert and pleasant female sitting in chair in and currently appearing comfortable Lungs: Slightly coarse bilateral breath sounds but otherwise clear Heart: Regular rhythm Extremities: No edema Neurological: Oriented, affect flat, speech normal Objective Labs Result Diagrams: 02/14/21 04:48 02/14/21 04:48 Labs: Laboratory Results - last 24 hr 02/14/21 02/14/21 02/14/21 04:48 04:48 04:48 WBC 5.2 RBC 4.65 Hgb 15.2 Hct 43.4 MCV 93.4 MCH 32.6 MCHC 34.9 RDW 12.3 Plt Count 196 D-Dimer Sodium 135 L Potassium 4.7 Chloride 100 Carbon Dioxide 30 BUN 19 H Creatinine 0.55 Estimated GFR > 60.0 BUN/Creatinine Ratio 34.5 H Glucose 149 H Calcium 8.7 Magnesium 2.1 Total Bilirubin 0.6 Conjugated Bilirubin 0.0 Unconjugated Bilirubin 0.5 AST 48 H ALT 31 Alkaline Phosphatase 52 Lactate Dehydrogenase C-Reactive Protein Total Protein 5.7 L Albumin 3.1 L Globulin 2.6 Albumin/Globulin Ratio 1.2 Procalcitonin 02/14/21 02/14/21 04:48 04:48 WBC RBC Hgb Hct MCV MCH MCHC RDW Plt Count D-Dimer < 200 Sodium Potassium Chloride Carbon Dioxide BUN Creatinine Estimated GFR BUN/Creatinine Ratio Glucose Calcium Magnesium Total Bilirubin Conjugated Bilirubin Unconjugated Bilirubin AST ALT Alkaline Phosphatase Lactate Dehydrogenase 907 H C-Reactive Protein 2.9 H Total Protein Albumin Globulin Albumin/Globulin Ratio Procalcitonin 0.13 [facility] Medical History Breast cancer, right breast Chronic left hip pain Essential hypertension Hypertension Insomnia, persistent Obesity (BMI 30-39.9) Obesity hypoventilation syndrome Obstructive sleep apnea Personal history of malignant neoplasm of breast Rhinitis Surgical History History of appendectomy Family History Mother Dementia Father Congestive heart failure Brother Fall Social History marital status: details: in March 2018 household members: children lives independently: Yes caregiver/support person: No leisure activities: reading seatbelt use: always do you feel safe at home: Yes Smoking Status: Former smoker substance use type: does not use additional social history: Describes very supportive community; daughters, friends, fellow yarsani members Assessment & Plan Assessment & Plan narrative: 1. Acute hypoxic respiratory failure due to COVID- 19 pneumonia -patient with slight improvement in O2 requirement -mildly elevated CRP 3.6 is improving -continue remdesivir x5 days and dexamethasone x 10 days or until discharge -continue O2 via nasal cannula -updated patient's daughter Arianne, contact # [phone], regarding patient's status. Patient's daughter inquires about treatment with Ivermectin as she received it herself for COVID pneumonia and felt rapid improvement. At this time I do not feel additional medication is required as patient is making some progress with decrease in O2 requirement. Also the studies on ivermectin are inconclusive on any benefit for severe COVID pneumonia. We discussed perhaps starting baricitinib if patient is worsening or not making further improvement after 5 days of remdesivir. -proning as tolerated 2. Obstructive sleep apnea, chronic -continue CPAP during sleep 3. Hypertension -continue atenolol 4. Hypokalemia, resolved 5. Mild hypoglycemia -check hemoglobin A1c 6. Obesity, BMI 37.1 DVT prophylaxis: Lovenox 40 mg subQ daily Code status: Limited code. No intubation which was reconfirmed with patient and daughter Arianne. Quality VTE Deep Vein Thrombosis/Pulmonary Embolism Present on Admission: No
[2021-02-14 15:45] LABS: Hemoglobin A1C% w Est Avg Glu 5.8 % (4.0-6.0)
[2021-02-14] MEDS: MELATONIN 3 MG TABLET 6 MG PO (22:06)
[2021-02-14] MEDS: REMDESIVIR 100 MG in SODIUM CHLORIDE 0.9% 230 ML 250 ML IV (22:06)
--- NOTE | 2021-02-14 23:41 | PC.NURSE ---
pt refused prone position. pt laying in her Rt side. cpap w/O2 94%
[2021-02-15] VITALS (9 sets, daily range): BP systolic 99–142; BP diastolic 59–88; PULSE 55–67; RESP 16–24; TEMP 36.2–37.1; O2SAT 90–95
[2021-02-15] MEDS: ENOXAPARIN 40 MG/0.4 ML SYRINGE SUBCUT (08:52)
[2021-02-15] MEDS: DEXAMETHASONE 10 MG/ML VIAL 6 MG IV (08:52)
[2021-02-15] MEDS: SODIUM CHLORIDE 0.9% FLUSH 10 ML IV ×2 (08:53→21:41)
[2021-02-15] MEDS: atenoloL 50 MG TABLET 25 MG PO (08:53)
[2021-02-15] MEDS: BARICITINIB 2 MG TABLET 4 MG PO (11:49)
--- NOTE | 2021-02-15 16:37 | PM.PN.1 ---
Subjective Subjective Date Patient Seen: 02/15/21 Interval history: 75-year-old female admitted with acute respiratory failure due to COVID pneumonia. Patient is on day 5 of dexamethasone and remdesivir. She has not had significant improvement and still requiring 10 L O2 and see but is not getting worse either. Continues to feel weak, tired and has a cough. She desaturates with activity but O2 sats quickly recover. Exam Vital Signs (past 8 hours): - 02/15/21 12:16 02/15/21 16:20 Temperature 97.5 F L Pulse Rate 55 L 56 L Respiratory Rate 22 17 Blood Pressure 118/71 128/70 Pulse Oximetry 92 95 Fraction of Inspired Oxygen 35 Oxygen Delivery Method Nasal Cannula Oxygen Flow Rate 0 Narrative Exam Narrative: General: Alert, oriented and appearing comfortable sitting in bedside chair Lungs: Clear Heart: Regular rhythm Extremities: No edema Objective Labs Result Diagrams: 02/14/21 04:48 02/14/21 04:48 [facility] Medical History Breast cancer, right breast Chronic left hip pain Essential hypertension Hypertension Insomnia, persistent Obesity (BMI 30-39.9) Obesity hypoventilation syndrome Obstructive sleep apnea Personal history of malignant neoplasm of breast Rhinitis Surgical History History of appendectomy Family History Mother Dementia Father Congestive heart failure Brother Fall Social History marital status: details: in March 2018 household members: children lives independently: Yes caregiver/support person: No leisure activities: reading seatbelt use: always do you feel safe at home: Yes Smoking Status: Former smoker substance use type: does not use additional social history: Describes very supportive community; daughters, friends, fellow adventism members Assessment & Plan Assessment & Plan narrative: 1. Acute hypoxic respiratory failure due to COVID-19 pneumonia -02/15 patient agrees to start on baricitinib 4 mg po daily since she has been on 5 days of dexamethasone and remdesivir without improvement in hypoxia or O2 requirements, still requiring 10 L O2 at rest -mildly elevated CRP 3.6 improving -continue dexamethasone x 10 days or until discharge, remdesivir last dose 02/15 -continue O2 via nasal cannula -02/14 updated patient's daughter Arianne, contact # [phone], regarding patient's status. Patient's daughter inquires about treatment with Ivermectin as she received it herself for COVID pneumonia and felt rapid improvement. At this time I do not feel additional medication is required as patient is making some progress with decrease in O2 requirement. Also the studies on ivermectin are inconclusive on any benefit for severe COVID pneumonia. We discussed perhaps starting baricitinib if patient is worsening or not making further improvement after 5 days of remdesivir. 2. Obstructive sleep apnea, chronic -continue CPAP during sleep 3. Hypertension -continue atenolol 4. Hypokalemia, resolved 5. Mild hypoglycemia -check hemoglobin A1c 6. Obesity, BMI 37.1 DVT prophylaxis: Lovenox 40 mg subQ daily Code status: Limited code. No intubation which was reconfirmed with patient and daughter Arianne. Quality VTE Deep Vein Thrombosis/Pulmonary Embolism Present on Admission: No
[2021-02-15] MEDS: REMDESIVIR 100 MG in SODIUM CHLORIDE 0.9% 230 ML 250 ML IV (21:40)
[2021-02-15] MEDS: MELATONIN 3 MG TABLET 6 MG PO (21:41)
[2021-02-16] VITALS (9 sets, daily range): BP systolic 110–129; BP diastolic 67–84; PULSE 50–70; RESP 16–22; TEMP 35.8–36.8; O2SAT 90–98
[2021-02-16] MEDS: atenoloL 50 MG TABLET 25 MG PO (08:39)
[2021-02-16] MEDS: DEXAMETHASONE 10 MG/ML VIAL 6 MG IV (08:41)
[2021-02-16] MEDS: ENOXAPARIN 40 MG/0.4 ML SYRINGE SUBCUT (08:42)
[2021-02-16] MEDS: SODIUM CHLORIDE 0.9% FLUSH 10 ML IV ×2 (08:42→21:49)
[2021-02-16] MEDS: BARICITINIB 2 MG TABLET 4 MG PO (08:46)
--- NOTE | 2021-02-16 09:06 | PC.NURSE ---
Addendum entered by Sue Christensen R.N. 02/16/21 14:25: Patient at 88-90% while on the phone, increased O2 back to 3L to maintain sat 90-96%. Addendum entered by Sue Christensen R.N. 02/16/21 14:14: Patient trialled on 2L NC, remains at 92%, drops to high 80's with conversation but returns to baseline O2 with rest. Addendum entered by Sue Christensen R.N. 02/16/21 09:33: Patient portable continuous pulse ox continues to alarm, patient is reported to be 68-88%, patient denies SOB, does not appear to have increased WOB and is currently on 9L, switched to wall pulse ox, patient is 92%, trialled on 7L, patients remains at 92%. Denies SOB. Original Note: Patient up to chair overnight, pulse ox machine going off at 840, patient had removed CPAP, call light was on bed, out of reach and phone was behind chair. Patient unable to reach either without getting out of chair. RT into room to apply O2 via HFNC. Patient denies pain, endorses continuing productive, cough, sputum dark yellow. Patient on 9L, 93-94%. Drops to low 80s with coughing but returns to 90s with rest and 2-3 breaths. Crackles in bilat posterior bases and R mid lobe. Patient reports she does not feel SOB. VSS. Patient denies dizziness or lightheadedness. Patient prefers to sit in the chair, encouraged patient to prone but she reports when she does this they put me on my side and she wants to be up in the chair during the day. BS active x 4, reports last BM 02/15. Call light left in reach, phone in reach.
--- NOTE | 2021-02-16 14:40 | CM.DPC ---
DCP Cont: Per MD, pt still SOB and requiring oxygen and was requiring around 10L oxygen yesterday but attempting to reduce oxygen needs today. Per RN, pt has been weaned off some oxygen and currently seems to be tolerating 2-3L oxygen and prefers to be sitting in chair during the day. PT/OT have not been ordered and unclear if needed as pt's oxygen needs reduce. Pt's plan is still home with daughter when medically stable. Plan: SW to follow to determine how pt tolerates reduced oxygen needs and if any PT eval needed towards plan of home with family when medically stable. Karissa Posey MSW
--- NOTE | 2021-02-16 15:29 | PM.PN.1 ---
Subjective Subjective Date Patient Seen: 02/16/21 Time Patient Seen: 15:30 Interval history: 75-year-old female admitted with acute respiratory failure due to COVID pneumonia. Patient is on day 6 of dexamethasone and remdesivir. She is much improved today and starting to feel improved. now down to 2-3 L via NC. STarted on barcitinib therapy yesterday, will continue. Exam Vital Signs (past 8 hours): - 02/16/21 07:49 02/16/21 09:49 02/16/21 11:16 Temperature 98 F 98.3 F Pulse Rate 50 L 70 Respiratory Rate 20 19 Blood Pressure 121/67 125/78 Pulse Oximetry 92 92 93 02/16/21 15:13 02/16/21 15:17 Temperature Pulse Rate Respiratory Rate Blood Pressure Pulse Oximetry 93 92 Fraction of Inspired Oxygen 35 Oxygen Delivery Method High Flow Nasal Cannula Oxygen Flow Rate 3 Narrative Exam Narrative: Gen: no acute distress, mildly acutely ill appearing, frequent coughing. Resp: diminished breath sound bilaterally, no obvious crackles or wheezing, though limited with disposable stethascope. CV: regular rate and rhythm, no murmur or rubs Abd: soft, non-tender, normal bowel sounds Skin: no lesions or rashes, dry and intact Psyche: normal mood and affect. Objective Labs Result Diagrams: 02/14/21 04:48 02/14/21 04:48 [facility] Medical History Breast cancer, right breast Chronic left hip pain Essential hypertension Hypertension Insomnia, persistent Obesity (BMI 30-39.9) Obesity hypoventilation syndrome Obstructive sleep apnea Personal history of malignant neoplasm of breast Rhinitis Surgical History History of appendectomy Family History Mother Dementia Father Congestive heart failure Brother Fall Social History marital status: details: in March 2018 household members: children lives independently: Yes caregiver/support person: No leisure activities: reading seatbelt use: always do you feel safe at home: Yes Smoking Status: Former smoker substance use type: does not use additional social history: Describes very supportive community; daughters, friends, fellow jew members Assessment & Plan Assessment & Plan narrative: 1. Acute hypoxic respiratory failure due to COVID-19 pneumonia -02/15 patient agreed to start on baricitinib 4 mg po daily since she has been on 5 days of dexamethasone and remdesivir without improvement in hypoxia or O2 requirements. The following day she has improved to 3L via NC. Continue to wean until off O2. Can stop baricitinib if no longer requiring O2. -mildly elevated CRP 3.6 improved on repeat. -continue dexamethasone x 10 days or until discharge, remdesivir last dose 02/15, continue baricitinib. -continue O2 via nasal cannula -02/14 provider updated patient's daughter Arianne, contact # [phone], regarding patient's status. Patient's daughter inquires about treatment with Ivermectin as she received it herself for COVID pneumonia and felt rapid improvement. At this time additional medication is not required as patient is making some progress with decrease in O2 requirement. Also the studies on ivermectin are inconclusive on any benefit for severe COVID pneumonia and do have significant side effects. 2. Obstructive sleep apnea, chronic -continue CPAP during sleep 3. Hypertension -continue atenolol 4. Hypokalemia, resolved 5. Mild hypoglycemia -A1c 5.8% 6. Obesity, BMI 37.1 DVT prophylaxis: Lovenox 40 mg subQ daily Code status: Limited code. No intubation which was reconfirmed with patient and daughter Arianne. Dispo: given improvement today, probable discharge home probably in 1-3 days pending progress. COVID-19 COVID-19 status: Positive Quality VTE Deep Vein Thrombosis/Pulmonary Embolism Present on Admission: No
[2021-02-16] MEDS: MELATONIN 3 MG TABLET 6 MG PO (21:16)
[2021-02-17] VITALS (7 sets, daily range): BP systolic 110–123; BP diastolic 62–77; PULSE 48–70; RESP 16–20; TEMP 35.9–36.4; O2SAT 90–96
[2021-02-17] MEDS: DEXAMETHASONE 10 MG/ML VIAL 6 MG IV (09:57)
[2021-02-17] MEDS: ENOXAPARIN 40 MG/0.4 ML SYRINGE SUBCUT (09:57)
[2021-02-17] MEDS: SODIUM CHLORIDE 0.9% FLUSH 10 ML IV (09:58)
[2021-02-17] MEDS: BARICITINIB 2 MG TABLET 4 MG PO (09:58)
--- NOTE | 2021-02-17 13:34 | PM.DS.1 ---
History of Present Illness History of Present Illness Date Patient Seen: 02/17/21 Time Patient Seen: 13:34 Chief complaint: COVID-19, no improvement X 1 week Narrative: Per VENANCIO Arce: Vivienne Najera is a 75 y.o. unvaccinated female with essential hypertension, a remote history of HER-2+ breast cancer in remission, obstructive sleep apnea, and obesity had completed travelling to [place] for her brother's service from [facility] to the [facility] and was intermixing with a number of people she did not have regular contract with. States on 02/05, she had a nurse visit at her [facility], was tested and found to have contracted COVID-19. She was quarantining at home and her only symptoms was that she felt lousy, had a headache and had no appetite. States she still has a sense of taste and smell, denies chest pain, nausea or vomiting, abdominal pain, dysurea, diarrhea or constipation or upper or lower extremity numbness or tingling. She states she did not take a vaccination because she has not gone anywhere but now that she has come down with COVID-19, will get one once she is able to. Chest x-ray done in the ED indicated a bilateral pleural effusions. Oxygen saturations at rest on room air were 92% and come up to the 96-97% range on 3 L. She has afebrile, blood pressure 125/82, heart rate 91, respiratory rate 20, oxygen saturation is 96% on 3 L and she weighs 99.7 kg. CBC is unremarkable, ABG pH was 7.46 bicarb 27 pCO2 was 81 ABG O2 was 97% with a base excess of 3. Sodium 132, potassium 3.3, creatinine is 0.5 with a normal GFR, glucose is 125, ferritin 589, AST 47, lactate dehydrogenase is 719, C-reactive protein is 3.6, procalcitonin is negative, respiratory panel with exception of COVID-19 PCR is negative. Discharge Providers Provider Date of admission: 02/12/21 00:13 Discharge Date: 02/17/21 Primary care physician: Maryanne Baker PA-C Consults: 02/12/21 01:12 Consult to Respiratory Therapy Evaluate & Treat Comment: Uses own CPAP machine Physician Instructions: Evaluate and treat Discharge provider: Jacoby Ko DO Summary Hospital Course Discharge Diagnosis: 1. Acute hypoxic respiratory failure due to COVID-19 pneumonia 2. Obstructive sleep apnea, chronic 3. Hypertension 4. Hypokalemia, resolved 5. Mild hypoglycemia 6. Obesity, BMI 37.1 Hospital Course: This is a 75-year-old female with a past medical history of obstructive sleep apnea, hypertension, and obesity who was admitted with acute hypoxic respiratory failure secondary to COVID-19 pneumonia. The patient was initially started on dexamethasone and remdesivir. Remdesivir was stopped at 5 days as there was not much effectiveness. Dexamethasone was continued until the day of discharge. On February 15 the patient agreed to a trial of baricitinib given continued requirement of 10 L via nasal cannula. The following morning her oxygen was able to be weaned to approximately 3-5 L. she required significantly more with activity. On February 17, the patient no longer wished to continue her therapies. Risks and benefits were discussed with the patient, including the possible risk of worsening infection, and that we would ideally recommend continued baricitinib and dexamethasone given possible mortality benefit. The patient was understanding of this concept but wished to discharge home with supplemental oxygen. On the day of discharge she was requiring 2 L of oxygen to maintain oxygen saturations in the low 90s at rest, she required 6 L with activity. Patient was counseled on return precautions including worsening oxygen requirements. Patient's daughter inquired twice during the hospital stay about treatment with ivermectin, at this time studies on ivermectin are inconclusive on any benefit and this medication does have significant side effects so this is not currently a recommended therapy for COVID-19. Patient was agreeable with current plan of care. Atenolol was held on discharge as she became slightly bradycardic into the 40s (sinus, and asymptomatic). Patient's CPAP machine was used during her hospital stay, and this has an option for oxygen bleed in at home as well. Appreciate respiratory therapy assistance in management and assistance with setup of home oxygen. Time Spent with Patient Time spent: Greater than 30 minutes Exam Vital Signs (past 8 hours): - 02/17/21 05:38 02/17/21 09:00 02/17/21 09:40 Temperature 97.3 F L 97.5 F L Pulse Rate 64 67 Respiratory Rate 16 20 Blood Pressure 122/77 114/72 Pulse Oximetry 91 90 L 91 02/17/21 12:48 Temperature 97.4 F L Pulse Rate 70 Respiratory Rate 19 Blood Pressure 120/68 Pulse Oximetry 95 Fraction of Inspired Oxygen 35 Oxygen Delivery Method Nasal Cannula Oxygen Flow Rate 3 Narrative Exam Narrative: Gen: no acute distress, mildly acutely ill appearing, frequent coughing. Resp: diminished breath sound bilaterally, no obvious crackles or wheezing, though limited with disposable stethascope. CV: regular rate and rhythm, no murmur or rubs Abd: soft, non-tender, normal bowel sounds Skin: no lesions or rashes, dry and intact Psyche: normal mood and affect. Objective Labs Result Diagrams: 02/14/21 04:48 02/14/21 04:48 [facility] Medical History Breast cancer, right breast Chronic left hip pain Essential hypertension Hypertension Insomnia, persistent Obesity (BMI 30-39.9) Obesity hypoventilation syndrome Obstructive sleep apnea Personal history of malignant neoplasm of breast Rhinitis Surgical History History of appendectomy Family History Mother Dementia Father Congestive heart failure Brother Fall Social History marital status: details: in March 2018 household members: children lives independently: Yes caregiver/support person: No leisure activities: reading seatbelt use: always do you feel safe at home: Yes Smoking Status: Former smoker substance use type: does not use additional social history: Describes very supportive community; daughters, friends, fellow caodaism members Discharge Plan Discharge Plan Patient Disposition: Home Provider Discharge Comment: You were admitted to the hospital with COVID 19 pneumonia requiring oxygen. You improved with steroids, an antiviral, and a medicine called baricitinib. You did not wish to stay for further treatments at this time despite possible mortality benefit. You will discharge home on oxygen therapy. Please try and keep oxygen between 90-96% at home while on supplemental oxygen. If your O2 is >90% you do not need any supplemental O2. Discharge orders & Medications Prescriptions: Continued melatonin 5 mg Tablet 5 mg PO BEDTIME Qty: 0 RF: 0 omega [id number] oil [Fish Oil] 1,000 mg (120 mg-180 mg) Capsule 800 mg PO BID Qty: 0 RF: 0 (DME) Respironics DreamStation CPAP Qty: 1 RF: 0 Discontinued atenolol 50 MG tablet 25 mg PO QDAY Qty: 0 RF: 0 cholecalciferol (vitamin D3) [Vitamin D3] 2,000 unit Capsule 2,000 unit PO BID RF: 0 Follow up/Referrals: Maryanne Baker PA-C [Primary Care Provider] - Diet/Activity/Treatments Diet: Diet as Tolerated Activity: As tolerated Oxygen: keep oxygen saturation between 90-96% at home. Visit Report/Discharge Packet Instructions: Home Oxygen Therapy, Oxygen Saturation, DI for Oxygen Therapy -- Adult, How to Measure Oxygen Saturation via Pulse Oximetry, How to Perform Oxygen Therapy via Cannula, How to Prevent Falls, DI for COVID-19 (Suspected or Confirmed ) Discharge Data Primary Care Provider: Maryanne Baker Quality VTE Deep Vein Thrombosis/Pulmonary Embolism Present on Admission: No
--- NOTE | 2021-02-17 19:33 | PC.NURSE ---
Evening Shift/Discharge Note- patient discharged home per hospitalist. Discharge instructions and educations reviewed with patient and signed. IV line removed and bandage applied. Tele monitor removed. Patient dressed self and was helped packing up personal belongings. Patient left via wheelchair with all personal belongings to daughters car. Patient left with 2 O2 tanks.
== END 2021-02-17 19:32 | disposition home or self-care (01) | DRG 177 ==
LOC: ED 22:17 → AC 02-12 01:11
PROVIDERS: Internal Medicine; Admitting Provider Nurse Practitioner Family; Emergency Provider Emergency Medicine; PCP Physician Assistant; Referring Provider Emergency Medicine; Visit Provider Nurse Practitioner Family
DX: U07.1 COVID-19 (principal); J12.82 Pneumonia due to coronavirus disease 2019; J96.01 Acute respiratory failure with hypoxia; E87.1 Hypo-osmolality and hyponatremia; E66.2 Morbid (severe) obesity with alveolar hypoventilation; E87.6 Hypokalemia; I10 Essential (primary) hypertension; E16.2 Hypoglycemia, unspecified; Z68.37 Body mass index [BMI] 37.0-37.9, adult; Z87.891 Personal history of nicotine dependence; Z85.3 Personal history of malignant neoplasm of breast
CPT/HCPCS: 36415; 36600; 71045; 80048; 80053; 80076; 82550; 82728; 82805; 83036; 83605; 83615; 83735; 83880; 84145; 84484; 85025; 85027; 85379; 86140; 87040; 87633; 93005; 93010; 94618; 94660; 94760; 94762; 96361; 96365; 96375; 99284; J1100; J1650; J1940

== ENCOUNTER → 2021-04-08 14:11 | Outpatient (CLI) | payer MEDICARE, OTHER, SELFPAY ==
[2021-02-12 00:47] VITALS: BMI 37.0
--- NOTE | 2021-04-08 14:13 | DI.RAD.S_ITS ---
PROCEDURE: XR DEXA AXIAL SKELETON INDICATIONS: Asymptomatic menopausal state COMPARISON: None. FINDINGS: This blank DEXA report has been sent in error by the PACS system. The correct and complete report will be forthcoming in 1-2 days. Thank you for your patience and understanding. Dictated by: Susan Pineda MD, PhD on 04/08/2021 at 14:55 Approved by: Susan Pineda MD, PhD on 04/08/2021 at 14:55
== END ==
PROVIDERS: PCP Physician Assistant; Referring Provider Physician Assistant; Visit Provider Physician Assistant
DX: Z78.0 Asymptomatic menopausal state (principal); Z85.3 Personal history of malignant neoplasm of breast; Z87.891 Personal history of nicotine dependence; Z82.62 Family history of osteoporosis
CPT/HCPCS: 77080

== ENCOUNTER → 2021-04-20 09:07 | Outpatient (CLI) | payer MEDICARE, OTHER, SELFPAY ==
[2021-02-12 00:47] VITALS: BMI 37.0
--- NOTE | 2021-04-20 | DI.MRI.S_ITS ---
PROCEDURE: MR LUMBAR SPINE WO CON INDICATIONS: Radiculopathy, lumbar region TECHNIQUE: Noncontrast sagittal T1 spin echo and T2 fast echo, sagittal STIR, axial T1 and T2 fast spin echo through the lumbar spine. In cases with scoliosis, additional coronal T2 fast spin echo may be performed. COMPARISON: [facility], CT, CHEST/ABD/PELVIS W/CON (PNL), 07/02/2011, 16:02. FINDINGS: Image quality: Excellent. Alignment and Curvature: There is normal bony alignment. Bone Marrow: Marrow is of normal overall signal. No acute vertebral body compression fractures. Spinal Cord: Conus medullaris terminates at the L1-L2 level. Visualized cord demonstrates normal signal and size. Paraspinous Soft Tissues: No paravertebral masses. Incidental note is made of a retroaortic left renal vein. This patient has transitional lumbar anatomy. For the purposes of this examination, the level with the last pair of ribs is considered to be T12. By this numbering scheme, the S1 level is transitional and is partially lumbarized on the left side. This is better demonstrated on the prior CT examination. There is a relatively well developed S1-S2 disc. T11-T12: Moderate loss of disc height is seen. Loss of disc signal is seen. Bridging endplate osteophytes are seen. No significant neural foraminal or central canal narrowing can be seen. T12-L1: Moderate loss of disc height is seen. Loss of disc signal is seen. Mild generalized disc bulge is seen. Bridging endplate osteophytes are seen. No neural foraminal or central canal narrowing can be seen. L1-L2: Moderate loss of disc height is seen. Loss of disc signal is seen. Mild to moderate disc bulge is seen. Bridging endplate osteophytes are seen. There is mild right-sided and no left-sided neural foraminal narrowing seen. No significant central canal narrowing is seen. L2-L3: The disc height is well-preserved. Loss of disc signal is seen at this level. Mild to moderate disc bulge is seen. There is a superimposed central disc protrusion. Mild facet joint hypertrophy is seen. There is moderate right-sided and minimal to mild left-sided neural foraminal narrowing seen. Mild central canal narrowing is seen. L3-L4: The disc height is well-preserved. Loss of disc signal is seen at this level. Moderate generalized disc bulge is seen. At least moderate facet hypertrophy is seen. Associated hypertrophy of the ligamentum flavum can be seen. There is moderate right-sided and minimal left-sided neural foraminal narrowing seen. At least moderate central canal narrowing is seen, as on series 5, image 15. L4-L5: Mild loss of disc height is seen. Loss of disc signal is seen. Moderate disc bulge is seen, which is eccentric to the right side. There is a superimposed central disc protrusion. Moderate facet joint hypertrophy is seen. There is [id number] right-sided and mild left-sided neural foraminal narrowing seen. There is a degree of compression seen upon the exiting nerve roots. L5-S1: Moderate to severe loss of disc height and disc signal can be seen. Reactive marrow endplate changes are seen, which are hyperintense on T1-weighted and T2-weighted imaging and most consistent with fatty metaplasia (Modic type II changes). Moderate disc bulge is seen. There is a superimposed central disc protrusion. Moderate facet joint hypertrophy is seen. Moderate bilateral neural foraminal narrowing can be seen, left worse than right. Mild central canal narrowing is seen. S1-S2: A transitional disc is seen at this level. No significant neural foraminal or central canal narrowing can be seen. IMPRESSION: Multiple levels of lumbar spine degenerative change are seen, which are overall worst inferiorly. There is transitional lumbar anatomy seen, including a transitional S1-S2 disc. Dictated by: Umang Mitchell M.D. on 04/20/2021 at 13:46 Approved by: Umang Mitchell M.D. on 04/20/2021 at 13:53
--- NOTE | 2021-04-20 | DI.MRI.S_ITS ---
PROCEDURE: MR PELVIS WO CON INDICATIONS: Radiculopathy, lumbar region TECHNIQUE: Noncontrast sagittal, coronal and axial T1 spin echo and STIR through the bony pelvis. COMPARISON: None. FINDINGS: No fracture identified. Bilateral moderate hip joint degeneration is present. There is prominent marrow edema within the left femoral head and femoral neck. Scattered degenerative subchondral sclerosis and spurring. Sacroiliac joints are unremarkable in signal intensity. There is lower lumbar spondylosis and facet arthropathy. No pathologic hip joint effusion. No evidence of osteonecrosis. Tendons and ligaments: Mild bilateral hip abductor insertional tendinopathy, age unknown. Proximal iliotibial band also appears intact. Iliopsoas tendon appears intact. Origin of the hamstring tendon is intact. The straight and reflected heads of the rectus femoris muscle origin appear intact Labrum: Labrum appears grossly intact in the absence of intra-articular contrast. Soft tissues: Visualized muscles demonstrate normal bulk and internal signal. Quadratus femoris muscle normal. Proximal sciatic neurovascular bundle appears normal adjacent to the hamstring tendons. No free pelvic fluid. Bladder normal. Sigmoid colonic diverticulosis incidentally noted. IMPRESSION: Bilateral moderate hip joint degeneration, with prominent marrow edema involving the left femoral head and femoral neck. Technically cannot exclude avascular necrosis/osteonecrosis, although other differential possibilities include transient regional osteoporosis, or reactive changes to hip joint degeneration. No definite articular surface collapse seen at this time although continued radiographic surveillance could be performed. Dictated by: Obi Mederos M.D. on 04/20/2021 at 11:53 Approved by: Obi Mederos M.D. on 04/20/2021 at 12:04
== END ==
PROVIDERS: PCP Physician Assistant; Referring Provider Physician Assistant; Visit Provider Physician Assistant
DX: M47.26 Other spondylosis with radiculopathy, lumbar region (principal); M47.27 Other spondylosis with radiculopathy, lumbosacral region; M16.0 Bilateral primary osteoarthritis of hip; R10.30 Lower abdominal pain, unspecified; K57.30 Diverticulosis of large intestine without perforation or abscess without bleeding
CPT/HCPCS: 72148; 72195

== ENCOUNTER → 2021-06-02 12:16 | Outpatient (CLI) | payer MEDICARE, OTHER, SELFPAY ==
[2021-02-12 00:47] VITALS: BMI 37.0
--- NOTE | 2021-06-02 | DI.RAD.S_ITS ---
PROCEDURE: XR FOOT RT 2V INDICATIONS: Pain in right foot TECHNIQUE: 2 views of the foot were acquired. COMPARISON: None. FINDINGS: Bones: No fractures or dislocations. No suspicious bony lesions. Mild joint space narrowing and periarticular osteophyte formation at the tibiotalar, talonavicular, navicular cuneiform, tarsometatarsal joints, as well as the 1st metatarsophalangeal joint and the interphalangeal joints of the digits. Soft tissues: No tibiotalar joint effusion. Achilles tendon appears normal. IMPRESSION: Multifocal osteoarthritis. No acute fracture. No osseous lesion. If symptoms and/or clinical suspicion for pathology persist, further assessment with repeat, or advanced imaging (e.g., CT, MRI, or bone scan) may be helpful for further assessment. Dictated by: Mitchel Irvin M.D. on 06/02/2021 at 14:50 Approved by: Mitchel Irvin M.D. on 06/02/2021 at 14:51
[2021-06-02 13:18] LABS: Add Manual Diff / Slide Review NO; Basophils Absolute Auto 0 /uL (0-100); Basophils Percent Auto 0.5 % (0-2); Eosinophils Absolute Auto 0 /uL (0-450); Eosinophils Percent Auto 0.3 % (2-4); Hemoglobin 15.1 g/dL (12.0-16.0); Lymphocytes Absolute Auto 800 /uL (1100-4500); Lymphocytes Percent Auto 9.7 % (25-40); Mean Corpuscular HGB Conc 34.4 % (30-36); Mean Corpuscular Hemoglobin 32.3 PG (26-34); Monocytes Absolute Auto 200 /uL (0-900); Monocytes Percent Auto 2.5 % (3-14); Neutrophils Absolute Auto 7300 /uL (1500-7000); Platelet Count 214 X10^3/uL (150-400); Red Blood Cell Count 4.68 X10^6/uL (4.0-5.2); Red Cell Distribution Width 12.6 % (11.6-14.8); White Blood Cell Count 8.4 X10^3/uL (4.5-11.0)
[2021-06-02 13:34] LABS: Erythrocyte Sedimentation Rate 4 MM/HR (0-20)
[2021-06-02 13:36] LABS: C-Reactive Protein Quant < 0.5 mg/dL (<1.0); Uric Acid 6.9 mg/dL (2.5-6.2)
== END ==
PROVIDERS: PCP Physician Assistant; Referring Provider Physician Assistant; Visit Provider Physician Assistant
DX: M19.071 Primary osteoarthritis, right ankle and foot (principal); M79.671 Pain in right foot
CPT/HCPCS: 36415; 73620; 84550; 85025; 85651; 86140

== ENCOUNTER → 2021-12-10 10:20 | Outpatient (CLI) | payer MEDICARE, OTHER, SELFPAY ==
[2021-02-12 00:47] VITALS: BMI 37.0
[2021-12-10 11:28] LABS: Add Manual Diff / Slide Review NO; Basophils Absolute Auto 0 /uL (0-100); Basophils Percent Auto 0.8 % (0-2); Eosinophils Absolute Auto 300 /uL (0-450); Eosinophils Percent Auto 5.5 % (2-4); Hematocrit 40.9 % (36-46); Hemoglobin 14.5 g/dL (12.0-16.0); Lymphocytes Absolute Auto 1300 /uL (1100-4500); Lymphocytes Percent Auto 21.1 % (25-40); Mean Corpuscular HGB Conc 35.4 % (30-36); Mean Corpuscular Hemoglobin 32.7 PG (26-34); Mean Corpuscular Volume 92.3 fL (80-100); Monocytes Absolute Auto 600 /uL (0-900); Monocytes Percent Auto 9.1 % (3-14); Neutrophils Absolute Auto 3900 /uL (1500-7000); Neutrophils Percent Auto 63.5 % (50-75); Platelet Count 227 X10^3/uL (150-400); Red Blood Cell Count 4.43 X10^6/uL (4.0-5.2); Red Cell Distribution Width 13.1 % (11.6-14.8); White Blood Cell Count 6.2 X10^3/uL (4.5-11.0)
[2021-12-10 11:43] LABS: Alanine Aminotransferase 14 IU/L (<35); Albumin 3.7 g/dL (3.5-5.0); Albumin Globulin Ratio 1.3 (1.0-2.8); Alkaline Phosphatase 70 U/L (38-126); Aspartate Aminotransferase 20 IU/L (14-36); BUN Creatinine Ratio 20.5 (6-22); Bilirubin Total 0.9 mg/dL (0.2-1.3); Blood Urea Nitrogen 15 mg/dL (7-17); Calcium 8.8 mg/dL (8.4-10.2); Carbon Dioxide 28 mmol/L (22-32); Chloride 103 mmol/L (98-107); Estimated Glomerular Filt Rate > 60 mL/min (>60); Globulin 2.8 g/dL (1.7-4.1); Glucose 91 mg/dL (80-110); HEMOLYSIS < 15 (0-50); Potassium 4.1 mmol/L (3.4-5.1); Sodium 138 mmol/L (137-145); Total Protein 6.5 g/dL (6.3-8.2)
== END ==
PROVIDERS: PCP Physician Assistant; Referring Provider Physician Assistant; Visit Provider Physician Assistant
DX: R42 Dizziness and giddiness (principal)
CPT/HCPCS: 36415; 80053; 85025

== ENCOUNTER → 2022-01-21 11:11 | Outpatient (CLI) | payer MEDICARE, OTHER, SELFPAY ==
[2021-02-12 00:47] VITALS: BMI 37.0
--- NOTE | 2022-01-21 | DI.MG.S_ITS ---
BILATERAL DIGITAL SCREENING MAMMOGRAM 3D/2D WITH CAD: 01/21/2022 CLINICAL: Routine screening. Personal history of right breast cancer. Comparison is made to exams dated: 01/09/2021 mammogram, 01/08/2020 mammogram, and 11/29/2018 mammogram - [facility]. There are scattered fibroglandular elements in both breasts. Current study was also evaluated with a Computer Aided Detection (CAD) system. There is a benign area of fat necrosis in the right breast. There also are benign calcifications in the right breast. Additionally, there are benign vascular calcifications in both breasts. Additionally, there also are benign post operative findings in the right breast. No significant masses, calcifications, or other findings are seen in either breast. There has been no significant interval change. IMPRESSION: BENIGN There is no mammographic evidence of malignancy. A 1 year screening mammogram is recommended. This exam was interpreted at Station ID: [id number]. NOTE: For mammograms, a report in lay terms will be sent to the patient. Approximately 15% of breast malignancies will not be visualized mammographically. In the management of a palpable breast mass, a negative mammogram must not discourage biopsy of a clinically suspicious lesion. Electronically Signed By: Mickie olvera/corey:01/21/2022 14:27:08 copy to: Gwen Walker letter sent: Normal Exam ACR BI-RADS Category 2: Benign Finding(s) 3342F
== END ==
PROVIDERS: PCP Physician Assistant; Referring Provider Physician Assistant; Visit Provider Physician Assistant
DX: Z12.31 Encounter for screening mammogram for malignant neoplasm of breast (principal); Z85.3 Personal history of malignant neoplasm of breast
CPT/HCPCS: 77063; 77067

== ENCOUNTER → 2022-03-15 09:54 | Outpatient (CLI) | payer MEDICARE, OTHER, SELFPAY ==
[2021-02-12 00:47] VITALS: BMI 37.0
[2022-03-15 12:06] LABS: Alanine Aminotransferase 14 IU/L (<35); Albumin Globulin Ratio 1.2 (1.0-2.8); Alkaline Phosphatase 66 U/L (38-126); Aspartate Aminotransferase 20 IU/L (14-36); BUN Creatinine Ratio 22.4 (6-22); Blood Urea Nitrogen 15 mg/dL (7-17); Carbon Dioxide 30 mmol/L (22-32); Chloride 104 mmol/L (98-107); Cholesterol 259 mg/dL (140-199); Estimated Glomerular Filt Rate > 60 mL/min (>60); Globulin 3.3 g/dL (1.7-4.1); Glucose 109 mg/dL (80-110); HDL Cholesterol 57 mg/dL (40-60); HEMOLYSIS < 15 (0-50); LDL Cholesterol Calculated 179 mg/dL (<100); Potassium 4.3 mmol/L (3.4-5.1); Sodium 139 mmol/L (137-145); Total Protein 7.3 g/dL (6.3-8.2); Triglycerides 114 mg/dL (35-150)
[2022-03-15 12:29] LABS: TSH w/ Reflex to FT4 1.41 uIU/mL (0.47-4.68)
[2022-03-15 13:03] LABS: Folate 8.9 ng/mL (2.76-20.0); Vitamin B12 245 pg/mL (239-931)
== END ==
PROVIDERS: PCP Physician Assistant; Referring Provider Family Medicine; Visit Provider Family Medicine
DX: I10 Essential (primary) hypertension (principal); I25.10 Atherosclerotic heart disease of native coronary artery without angina pectoris; E78.5 Hyperlipidemia, unspecified; R42 Dizziness and giddiness; E56.9 Vitamin deficiency, unspecified; R53.83 Other fatigue
CPT/HCPCS: 36415; 80053; 80061; 82607; 82746; 84443

== ENCOUNTER → 2022-03-23 09:19 | Outpatient (CLI) | payer MEDICARE, OTHER, SELFPAY ==
[2021-02-12 00:47] VITALS: BMI 37.0
--- NOTE | 2022-03-23 | DI.ECHO.S_ITS ---
[facility]---------+ [facility] +---------+ : : [address] : : : : [id number] : : : : Phone: [phone] Echocardiogram Report + + :Name: WENDY MADRIGAL Study Date: 03/23/2022 Height: 65.5 in: :[facility] ReadingLocation: Weight: 192 lb : : Gender: Female BSA: 2.0 m2 : :: 1945 Age: 77 yrs BP: 122/94 mmHg: :Reason For Study: DIZZINESS AND GIDDINESS : :Ordering Physician: MALIK DESAI : :Yung CRAFT Performed By: Renetta Boudreaux : :Referring: MALIK DESAI : + + Interpretation Summary The patient was in sinus rhythm with heart rates between 70-85 bpm during the exam. Hypertensive during exam The left ventricular cavity is small. The ejection fraction is estimated to be 60-65%. Diastolic parameters suggest probable normal left ventricular diastolic function and normal filling pressures. No significant valvular disease Compared to 01/09/2014, no significant changes. Procedure: A two-dimensional transthoracic echocardiogram with color flow and Doppler was performed. The study quality was technically adequate. Comparison is made with the echocardiogram of 01/09/2014. The patient was in sinus rhythm with heart rates between 70-85 bpm during the exam. Hypertensive during exam. Left Ventricle: The left ventricular cavity is small. The ejection fraction is estimated to be 60-65%. Diastolic parameters suggest probable normal left ventricular diastolic function and normal filling pressures. Right Ventricle: The right ventricle is normal in size and function. Atria: The left atrial size is normal. Right atrial size is normal. There is no Doppler evidence for an interatrial shunt. Mitral Valve: The mitral valve is normal in structure and function. There is mild mitral annular calcification. There is trace mitral regurgitation. Aortic Valve: The aortic valve is trileaflet. The aortic valve opens well. There is no aortic valve stenosis. No aortic regurgitation is present. Tricuspid Valve: The tricuspid valve is normal in structure and function. There is trace tricuspid regurgitation. Pulmonic Valve: The pulmonic valve leaflets are thin and pliable; valve motion is normal. There is no pulmonic valvular regurgitation. Great Vessels: The aortic root is normal size. The dimensions of the ascending aorta are normal. The IVC is of normal diameter and collapses greater than 50% with a sniff. This suggests a low right atrial pressure of 3 mm Hg. Pericardium/ Pleura There is no pericardial effusion. There is no pleural effusion. MMode/2D Measurements & Calculations LVIDd: 3.5 cm LVOT diam: 1.9 cm LVIDs: 2.4 cm Ao root diam: 3.4 cm FS: 32.8 % asc Aorta Diam: 3.2 cm IVSd: 1.2 cm Ao Arch Diam (Prox Trans): 3.1 cm LVPWd: 0.83 cm LV johnson. diameter/BSA (cm/m^2): 1.8 LV sys. diameter/BSA (cm/m^2): 1.2 LA A2 area: 15.3 cm2 RA long axis: 4.2 cm LA A4 area: 13.9 cm2 RA area: 11.8 cm2 LA length (vol): 4.6 cm RA vol: 28.1 ml LA vol: 39.1 ml RA : 14.4 ml/m2 LA vol index: 20.0 ml/m2 IVC diam: 0.83 cm RVD1 (basal): 3.0 cm RVD2 (mid): 2.1 cm TAPSE: 1.6 cm Doppler Measurements & Calculations Ao V2 max: 123.8 cm/sec LVOT Max Blake: 104.0 cm/sec Ao V2 mean: 87.5 cm/sec LV V1 max P.3 mmHg Ao max P.1 mmHg LV V1 VTI: 19.6 cm Ao mean P.4 mmHg LEANDRA(I,D): 2.4 cm2 Ao V2 VTI: 24.0 cm LEANDRA(V,D): 2.5 cm2 sev ratio: 0.82 LEANDRA indexed to BSA (cm^2/m^2): 1.2 MV E max blake: 71.5 cm/sec PA V2 max: 76.5 cm/sec MV A max blake: 78.2 cm/sec PA V2 mean: 56.0 cm/sec MV E/A: 0.91 PA mean P.4 mmHg Med Peak E' Blake: 6.3 cm/sec PA pr(Accel): 29.3 mmHg E/E' med: 11.4 Lat Peak E' Blake: 6.7 cm/sec E/E' lat: 10.6 E/e' average: 11.0 MV dec time: 0.22 sec [facility] 57.5 ml Reading Physician:NIMA
== END ==
PROVIDERS: PCP Family Medicine; Referring Provider Family Medicine; Visit Provider Family Medicine
DX: I25.10 Atherosclerotic heart disease of native coronary artery without angina pectoris (principal); R42 Dizziness and giddiness
CPT/HCPCS: 93306

== ENCOUNTER → 2022-05-24 08:19 | Outpatient (CLI) | payer MEDICARE, OTHER, SELFPAY ==
[2021-02-12 00:47] VITALS: BMI 37.0
[2022-05-24 10:00] LABS: Add Manual Diff / Slide Review NO; Basophils Absolute Auto 0 /uL (0-100); Basophils Percent Auto 0.5 % (0-2); Eosinophils Absolute Auto 200 /uL (0-450); Eosinophils Percent Auto 3.6 % (2-4); Hematocrit 43.7 % (36-46); Hemoglobin 14.8 g/dL (12.0-16.0); Lymphocytes Absolute Auto 1600 /uL (1100-4500); Lymphocytes Percent Auto 29.1 % (25-40); Mean Corpuscular HGB Conc 33.9 % (30-36); Mean Corpuscular Hemoglobin 31.6 PG (26-34); Mean Corpuscular Volume 93.3 fL (80-100); Monocytes Absolute Auto 500 /uL (0-900); Monocytes Percent Auto 8.8 % (3-14); Neutrophils Absolute Auto 3300 /uL (1500-7000); Platelet Count 233 X10^3/uL (150-400); Red Blood Cell Count 4.69 X10^6/uL (4.0-5.2); Red Cell Distribution Width 12.7 % (11.6-14.8); White Blood Cell Count 5.6 X10^3/uL (4.5-11.0)
[2022-05-24 10:03] LABS: Appearance Urine UA SL CLOUDY; Bilirubin Urine UA NEGATIVE (NEGATIVE); Color Urine UA YELLOW; Glucose Urine UA NEGATIVE (Negative); Ketones Urine UA NEGATIVE (NEGATIVE); Leukocyte Esterase Urine UA 2+ (NEGATIVE); Nitrite Urine UA NEGATIVE (Negative); Occult Blood Urine UA 1+ (Negative); Protein Urine UA TRACE (Negative); Specific Gravity Urine UA 1.025 (1.000-1.035); Urobilinogen Urine UA 0.2 E.U./dL (0.2)
[2022-05-24 10:26] LABS: Vitamin D 25 Hydroxy (D3) 47.6 ng/mL (30.0-100.0)
[2022-05-24 10:27] LABS: Alanine Aminotransferase 23 IU/L (<35); Albumin 3.7 g/dL (3.5-5.0); Albumin Globulin Ratio 1.3 (1.0-2.8); Alkaline Phosphatase 76 U/L (38-126); Aspartate Aminotransferase 19 IU/L (14-36); BUN Creatinine Ratio 23.1 (6-22); Bilirubin Total 0.7 mg/dL (0.2-1.3); Blood Urea Nitrogen 15 mg/dL (7-17); Carbon Dioxide 32 mmol/L (22-32); Chloride 103 mmol/L (98-107); Estimated Glomerular Filt Rate > 60 mL/min (>60); Globulin 2.9 g/dL (1.7-4.1); Glucose 105 mg/dL (80-110); HEMOLYSIS < 15 (0-50); Magnesium 1.9 mg/dL (1.6-2.3); Potassium 4.6 mmol/L (3.4-5.1); Sodium 140 mmol/L (137-145); Total Protein 6.6 g/dL (6.3-8.2); Uric Acid 5.9 mg/dL (2.5-6.2)
[2022-05-24 10:30] LABS: RBC Urine 1-5/HPF (0-5/HPF); Squamous Epithelial Cell Urine 5-10 /HPF (0-5/HPF); WBC Urine 10-30/HPF (0-5/HPF)
[2022-05-24 10:31] LABS: Bacteria Urine Many (>30); Culture Indicated Urine Specimen Cultured; Urine Comments 2 ML SUBMITTED
== END ==
PROVIDERS: PCP Family Medicine; Referring Provider Family Medicine; Visit Provider Family Medicine
DX: R42 Dizziness and giddiness (principal); I47.1 Supraventricular tachycardia; Z79.899 Other long term (current) drug therapy; F33.8 Other recurrent depressive disorders; Z86.39 Personal history of other endocrine, nutritional and metabolic disease; Z85.3 Personal history of malignant neoplasm of breast; M10.9 Gout, unspecified
CPT/HCPCS: 36415; 80053; 81001; 82306; 83735; 84550; 85025; 87077; 87086; 87186

== ENCOUNTER → 2023-02-03 14:58 | Outpatient (CLI) | payer MEDICARE, OTHER, SELFPAY ==
[2021-02-12 00:47] VITALS: BMI 37.0
[2023-02-03 16:31] LABS: Erythrocyte Sedimentation Rate 21 MM/HR (0-20)
[2023-02-03 16:38] LABS: Alanine Aminotransferase 21 IU/L (<35); Albumin 3.9 g/dL (3.5-5.0); Albumin Globulin Ratio 1.2 (1.0-2.8); Alkaline Phosphatase 87 U/L (38-126); Aspartate Aminotransferase 22 IU/L (14-36); BUN Creatinine Ratio 26.1 (6-22); Bilirubin Total 0.6 mg/dL (0.2-1.3); Blood Urea Nitrogen 18 mg/dL (7-17); C-Reactive Protein Quant < 0.5 mg/dL (<1.0); Calcium 8.9 mg/dL (8.4-10.2); Carbon Dioxide 26 mmol/L (22-32); Chloride 104 mmol/L (98-107); Cholesterol 234 mg/dL (140-199); Estimated Glomerular Filt Rate > 60 mL/min (>60); Globulin 3.3 g/dL (1.7-4.1); Glucose 183 mg/dL (80-110); HDL Cholesterol 48 mg/dL (40-60); HEMOLYSIS < 15 (0-50); LDL Cholesterol Calculated 167 mg/dL (<100); Potassium 3.7 mmol/L (3.4-5.1); Sodium 138 mmol/L (137-145); Total Protein 7.2 g/dL (6.3-8.2); Triglycerides 95 mg/dL (35-150); Uric Acid 6.8 mg/dL (2.5-6.2)
== END ==
PROVIDERS: PCP Family Medicine; Referring Provider Nurse Practitioner Family; Visit Provider Nurse Practitioner Family
DX: E78.5 Hyperlipidemia, unspecified (principal); M10.9 Gout, unspecified
CPT/HCPCS: 36415; 80053; 80061; 84550; 85651; 86140

== ENCOUNTER → 2023-02-23 14:39 | Outpatient (CLI) | payer MEDICARE, OTHER, SELFPAY ==
[2021-02-12 00:47] VITALS: BMI 37.0
--- NOTE | 2023-02-23 | DI.MG.S_ITS ---
BILATERAL DIGITAL SCREENING MAMMOGRAM 3D/2D WITH CAD: 02/23/2023 CLINICAL: Routine screening. Personal history of right breast cancer. Comparison is made to exams dated: 01/21/2022 mammogram, 01/09/2021 mammogram, 01/08/2020 mammogram, and 11/29/2018 mammogram - [facility]. There are scattered areas of fibroglandular density in both breasts (category b / 25%-50% glandular tissue). Current study was also evaluated with a Computer Aided Detection (CAD) system. There is a benign area of fat necrosis in the right breast. There also are benign calcifications in the right breast. Additionally, there are benign vascular calcifications in both breasts. Additionally, there also are benign post operative findings in the right breast. No significant masses, calcifications, or other findings are seen in either breast. There has been no significant interval change. IMPRESSION: BENIGN There is no mammographic evidence of malignancy. A 1 year screening mammogram is recommended. This exam was interpreted at Station ID: [id number]. NOTE: For mammograms, a report in lay terms will be sent to the patient. Approximately 15% of breast malignancies will not be visualized mammographically. In the management of a palpable breast mass, a negative mammogram must not discourage biopsy of a clinically suspicious lesion. Electronically Signed By: Leroy martin/corey:02/23/2023 17:29:31 copy to: Gwen Walker letter sent: Normal Exam ACR BI-RADS Category 2: Benign Finding(s) 3342F
== END ==
PROVIDERS: PCP Nurse Practitioner Family; Referring Provider Nurse Practitioner Family; Visit Provider Nurse Practitioner Family
DX: Z12.31 Encounter for screening mammogram for malignant neoplasm of breast (principal); Z85.3 Personal history of malignant neoplasm of breast
CPT/HCPCS: 77063; 77067

== ENCOUNTER → 2023-05-14 14:09 | Outpatient (CLI) | payer MEDICARE, OTHER, SELFPAY ==
[2021-02-12 00:47] VITALS: BMI 37.0
== END ==
PROVIDERS: PCP Nurse Practitioner Family; Visit Provider Nurse Practitioner Family
DX: R30.0 Dysuria (principal)
CPT/HCPCS: 87077; 87086; 87186

== ENCOUNTER → 2024-02-28 08:11 | Outpatient (CLI) | payer MEDICARE, OTHER, SELFPAY ==
[2021-02-12 00:47] VITALS: BMI 37.0
--- NOTE | 2024-02-28 08:13 | DI.MG.S_ITS ---
BILATERAL DIGITAL SCREENING MAMMOGRAM 3D/2D WITH CAD POST LUMPECTOMY: 02/28/2024 CLINICAL: Routine screening. Personal history of right breast cancer. Comparison is made to exams dated: 02/23/2023 mammogram, 01/21/2022 mammogram, 01/09/2021 mammogram, and 01/08/2020 mammogram - [facility]. There are scattered areas of fibroglandular density in both breasts (category b / 25%-50% glandular tissue). Current study was also evaluated with a Computer Aided Detection (CAD) system. There is a benign area of fat necrosis in the right breast. There also are benign calcifications in the right breast. Additionally, there are benign vascular calcifications in both breasts. Additionally, there also are benign post operative findings in the right breast. No significant masses, calcifications, or other findings are seen in either breast. There has been no significant interval change. IMPRESSION: BENIGN There is no mammographic evidence of malignancy. A 1 year screening mammogram is recommended. This exam was interpreted at Station ID: [id number]. NOTE: For mammograms, a report in lay terms will be sent to the patient. Approximately 15% of breast malignancies will not be visualized mammographically. In the management of a palpable breast mass, a negative mammogram must not discourage biopsy of a clinically suspicious lesion. Electronically Signed By: Leroy martin/corey:02/28/2024 10:01:34 copy to: Gwen Walker letter sent: Normal Exam ACR BI-RADS Category 2: Benign Finding(s) 3342F
== END ==
PROVIDERS: PCP Nurse Practitioner Family; Referring Provider Nurse Practitioner Family; Visit Provider Nurse Practitioner Family
DX: Z12.31 Encounter for screening mammogram for malignant neoplasm of breast (principal); N64.1 Fat necrosis of breast; R92.1 Mammographic calcification found on diagnostic imaging of breast; Z85.3 Personal history of malignant neoplasm of breast
CPT/HCPCS: 77063; 77067

== ENCOUNTER → 2025-05-01 10:08 | Outpatient (CLI) | payer MEDICARE, OTHER, SELFPAY ==
[2021-02-12 00:47] VITALS: BMI 37.0
[2025-05-01 12:09] LABS: Hematocrit 42.5 % (36-46); Hemoglobin 14.6 g/dL (12.0-16.0); Mean Corpuscular HGB Conc 34.4 % (30-36); Mean Corpuscular Hemoglobin 32.9 PG (26-34); Mean Corpuscular Volume 95.4 fL (80-100); Platelet Count 180 X10^3/uL (150-400)
[2025-05-01 12:55] LABS: Blood Urea Nitrogen 14 mg/dL (7-17); Calcium 8.9 mg/dL (8.4-10.2); Carbon Dioxide 22 mmol/L (22-32); Chloride 107 mmol/L (98-107); Estimated Glomerular Filt Rate > 60 mL/min (>60); Glucose 89 mg/dL (70-99); HEMOLYSIS < 15 (0-50); Potassium 3.9 mmol/L (3.4-5.1); Sodium 139 mmol/L (137-145)
[2025-05-01 13:13] LABS: TSH w/ Reflex to FT4 1.10 uIU/mL (0.47-4.68)
[2025-05-01 13:14] LABS: Vitamin D 25 Hydroxy (D3) 29.2 ng/mL (30.0-100.0)
[2025-05-01 13:32] LABS: Vitamin B12 292 pg/mL (239-931)
== END ==
PROVIDERS: PCP Nurse Practitioner Family; Referring Provider Nurse Practitioner Family; Visit Provider Nurse Practitioner Family
DX: R41.89 Other symptoms and signs involving cognitive functions and awareness (principal); I10 Essential (primary) hypertension; G47.33 Obstructive sleep apnea (adult) (pediatric); Z13.21 Encounter for screening for nutritional disorder; Z13.29 Encounter for screening for other suspected endocrine disorder; Z13.0 Encounter for screening for diseases of the blood and blood-forming organs and certain disorders involving the immune mechanism; Z13.228 Encounter for screening for other metabolic disorders
CPT/HCPCS: 36415; 80048; 82306; 82607; 84443; 85027

== ENCOUNTER → 2025-05-31 17:16 | Outpatient (CLI) | payer MEDICARE, OTHER, SELFPAY ==
[2021-02-12 00:47] VITALS: BMI 37.0
--- NOTE | 2025-05-31 17:22 | DI.MG.S_ITS ---
MM screening mammo BI: 05/31/2025. BI-RADS: 2 CLINICAL: 80-year old female for bilateral screening mammogram. No Tyrer-Cuzick risk score calculation due to the patient's personal history of breast cancer. Patient reports a history of right breast carcinoma diagnosed at age 66. Status-post right lumpectomy with radiation therapy and chemotherapy. No first-degree family history of breast cancer. The patient had a prior right breast biopsy. PRIOR EXAMS 02/28/2024, 02/23/2023, 01/21/2022, 01/09/2021. MAMMOGRAPHY TECHNIQUE: 2D and 3D (tomosynthesis) digital mammographic views obtained, with additional images as needed for full coverage. Current study was also evaluated with a Computer Aided Detection (CAD) system. DENSITY B. There are scattered areas of fibroglandular density. MAMMOGRAPHY FINDINGS Right: Surgical clips present on the right. Benign-appearing calcifications and post-surgical changes noted on the right. Typically-benign vascular calcifications also noted. Left: Benign-appearing calcifications noted on the left. Typically-benign vascular calcifications also noted. IMPRESSION: * No evidence of malignancy with benign findings. RECOMMENDATIONS Bilateral * Annual screening mammography. OVERALL ASSESSMENT CATEGORY BI-RADS-2: Benign. The [employer] recommends annual screening mammography beginning at age 40 for women with average risk of breast cancer. ELECTRONICALLY SIGNED: Geoff Johnson M.D. on 06/03/2025 at 06:59:25 AM PT Interpreting Station ID: [id number]
== END ==
PROVIDERS: Family Provider Nurse Practitioner Family; PCP Nurse Practitioner Family; Referring Provider Nurse Practitioner Family; Visit Provider Nurse Practitioner Family
DX: Z12.31 Encounter for screening mammogram for malignant neoplasm of breast (principal); Z85.3 Personal history of malignant neoplasm of breast
CPT/HCPCS: 77063; 77067